=== PATIENT | female | born 1985 | race Asian ===

== ENCOUNTER 2020-10-11 19:29 | Emergency (ER) | payer OTHER, SELFPAY ==
[2020-10-11 19:53] VITALS: BP 114/80; PULSE 78; RESP 16; TEMP 36.8; O2SAT 98; BMI 28.3
[2020-10-11 21:07] VITALS: BP 131/82; PULSE 58; RESP 16; O2SAT 99
--- NOTE | 2020-10-11 21:09 | ED.FEMALEGU ---
HPI - Female Genitourinary General Chief complaint: Vaginal Bleeding Stated complaint: Vaginal Bleeding Time Seen by Provider: 10/11/20 20:39 Source: patient Mode of arrival: ambulatory Limitations: no limitations History of Present Illness HPI Narrative: 35 y/o female with no significant medical history presents to the ER with heavy vaginal bleeding for the last 8 days. She reports she usually gets her menstrual period every 29 days and bleeds for 7 days. Her 1st few days are heavy but it usually slows down. This month the bleeding has been heavier than usual and consistent through the entire 8 days. She is changing her tampon every 3 hours and she is also bleeding some on a pad as well. She has some intermittent lower abdominal cramping that is normal for her menses. She developed new dizziness today which prompted her to come to the ER for further evaluation. She denies chest pain, SOB, vaginal discharge, chance of . MD elicited complaint: vaginal bleeding Onset (ago): day(s) (8) Location of symptoms: vaginal Severity: severe Female Urogenital Radiation: Non-Radiating Severity scale (1-10): 4 Quality of pain: cramping Consistency: intermittent Vaginal discharge: none Vaginal bleeding: heavy and dark red Exacerbating factors: none Relieving factors: none Associated symptoms: denies other symptoms Treatment prior to arrival: none Sexual activity: Yes Patient : No Date of Last Menstrual Period: 10/04/20 Related Data Previous Rx's Medication Instructions Recorded medroxyprogesterone 10 mg tablet 10 mg PO DAILY #5 tab 10/11/20 (Provera) Allergies Allergy/AdvReac Type Severity Reaction Status Date / Time No Known Allergies Allergy Verified 10/11/20 20:01 seasonal Allergy Unknown Unknown Uncoded 10/11/20 20:01 Review of Systems Review of Systems: Constitutional: No Fever, No Chills ENT/Mouth: No sore throat, No Rhinorrhea, No Swallowing Difficulty Cardiovascular: No Chest Pain, No SOB, No Orthopnea, No Edema Respiratory: No Cough, No Sputum, No Wheezing, No dyspnea Gastrointestinal: No Nausea, No Vomiting, No Diarrhea, + abdominal Pain, No Hematochezia, No Melena Genitourinary: No Dysuria, No Urinary Frequency, No Hematuria, +vaginal bleeding, Musculoskeletal: No joint pain, No Myalgias Skin: No Skin Lesions, No rash Neuro: No Weakness, No Numbness, + Dizziness, No Headache Psych:+ Anxiety/Panic, No Depression Heme/Lymph: No Bruising, No Lymphadenopathy Endocrine: No Polyuria, No Polydipsia [facility] Past Medical History Medical History (Updated 10/11/20 @ 22:52 by SANTOS Webb) No known health problems Date of Last Menstrual Period: 10/04/20 Social History Social History Alcohol intake: unknown Patient Tobacco Use Status: Never used Tobacco Use of substances other than those prescribed or required for medical reasons: No Advance Directives: No Advance Directives Information Provided: No Patient : No Physical Exam Vital Signs: Vital Signs: Last Vital Signs Temp 98.2 F 10/11/20 19:53 Pulse 59 10/11/20 22:30 Resp 16 10/11/20 22:30 BP 126/72 10/11/20 22:30 Pulse Ox 98 10/11/20 22:30 Body Mass Index 28.3 Appearance: Alert. Oriented X3. No acute distress. Eyes: Pupils equal, round and reactive to light. ENT: Pharynx normal. Neck: Normal inspection. Neck supple. CVS: Normal heart rate and rhythm. Pulses normal. Respiratory: No respiratory distress. Breath sounds normal. Abdomen: Soft and nontender. +BS x4 Pelvic: normal external genitalia, speculum exam reveals moderate amount of dark blood in the vaginal vault, cervical os is closed, no active bleeding Skin: Skin warm and dry. Normal skin color. Normal skin turgor. No rashes. Extremities: No lower extremity edema. Neuro: Oriented X 3. No motor deficit. No sensory deficit. Course Course Course Narrative: 35 y/o female presenting with 8 days of heavy vaginal bleeding and new onset of dizziness today. Will check labs to assess for anemia. Not dizzy at this time. Reevaluation(s) Reevaluation #1: Labs showing mild normocytic anemia, H/H 11/33.8 from her baseline of 13.8/42.2. No active bleeding on exam. She would like to start medication to help with the bleeding. Risks and benefits of Provera discussed and she would like to start. She was encouraged to f/u [facility] manager multicultural next week for further workup and management, as she has not had her annual Signal Person exam in a several years. MDM - Female Genitourinary Lab Data Result diagrams: 10/11/20 21:06 09/04/21 21:06 Labs: Lab Results 10/11/20 10/11/20 10/11/20 Range/Units 21:06 21:06 21:06 WBC 9.3 (4.8-10.8) X10*3/uL RBC 4.13 L (4.20-5.50) X10*6/uL Hgb 11.0 L (12.0-16.0) g/dl Hct 33.8 L (37-47) % MCV 81.8 (80-98) fL MCH 26.6 L (27.0-33.0) pg MCHC 32.5 (31.0-35.0) g/dl RDW 14.8 (11.0-16.0) % Plt Count 357 (160-400) X10*3/uL MPV 9.9 (9.4-12.3) fL Absolute Nucleated RBC 0.000 (0.0-0.012) X10*3/uL Nucleated RBC % (auto) 0.0 (0.0-0.2) /100WBC Sodium 139 (135-145) mmol/L Potassium 3.7 (3.3-5.1) mmol/L Chloride 107 (96-108) mmol/L Carbon Dioxide 26 (22-29) mmol/L Anion Gap 10 L (12-20) BUN 12 (9-16) mg/dL Creatinine 0.66 (0.5-1.4) mg/dL Estim Creat Clear Calc 116.7 Estimated GFR > 60 Random Glucose 118 H (60-115) mg/dL Calcium 9.2 (8.4-10.2) mg/dL Urine Color RED Urine Appearance CLOUDY Urine pH 7.0 (5.0-8.0) Ur Specific [place] <= 1.005 (1.005-1.025) Urine Protein TRACE (NEG-TRACE) MG/DL Urine Glucose (UA) NEG (NEG) MG/DL Urine Ketones NEG (NEG) MG/DL Urine Blood 3+ H (NEG) Urine Nitrite NEG (NEG) Ur Leukocyte Esterase NEG (NEG) Urine RBC TNTC H (0) /HPF Urine WBC 0-2 (0-4) /HPF Ur Squamous Epith Cells TRACE /LPF Urine Bacteria NONE /LPF Urine Test (NEGATIVE) 10/11/20 Range/Units 21:07 WBC (4.8-10.8) X10*3/uL RBC (4.20-5.50) X10*6/uL Hgb (12.0-16.0) g/dl Hct (37-47) % MCV (80-98) fL MCH (27.0-33.0) pg MCHC (31.0-35.0) g/dl RDW (11.0-16.0) % Plt Count (160-400) X10*3/uL MPV (9.4-12.3) fL Absolute Nucleated RBC (0.0-0.012) X10*3/uL Nucleated RBC % (auto) (0.0-0.2) /100WBC Sodium (135-145) mmol/L Potassium (3.3-5.1) mmol/L Chloride (96-108) mmol/L Carbon Dioxide (22-29) mmol/L Anion Gap (12-20) BUN (9-16) mg/dL Creatinine (0.5-1.4) mg/dL Estim Creat Clear Calc Estimated GFR Random Glucose (60-115) mg/dL Calcium (8.4-10.2) mg/dL Urine Color Urine Appearance Urine pH (5.0-8.0) Ur Specific [place] (1.005-1.025) Urine Protein (NEG-TRACE) MG/DL Urine Glucose (UA) (NEG) MG/DL Urine Ketones (NEG) MG/DL Urine Blood (NEG) Urine Nitrite (NEG) Ur Leukocyte Esterase (NEG) Urine RBC (0) /HPF Urine WBC (0-4) /HPF Ur Squamous Epith Cells /LPF Urine Bacteria /LPF Urine Test NEGATIVE (NEGATIVE) Critical Care Time Critical Care Time Critical Care Time: No Discharge Plan Discharge Clinical Impression: Menorrhagia Qualifiers: Menorrhagia type: with regular cycle Qualified Code(s): N92.0 - Excessive and frequent menstruation with regular cycle Patient Disposition: Home, Self-Care Instructions: Menorrhagia (ED) Additional Instructions: Your blood work today showed mild anemia. Take the prescribed medication as directed to help slow the bleeding. Recommend following up with manager multicultural next week for further workup and management. If you develop new or worsening symptoms call 911 or come back to the ER for further evaluation. Prescriptions: New medroxyprogesterone [Provera] 10 mg tablet 10 mg PO DAILY Qty: 5 RF: 0 Referrals: Ryan Resendiz MD [Physician] - 2 days (menorrhagia w/ anemia)
[2020-10-11 21:13] LABS: Hematocrit 33.8 % (37-47); Mean Corpuscular HGB Conc 32.5 g/dl (31.0-35.0); Mean Corpuscular Hemoglobin 26.6 pg (27.0-33.0); Mean Corpuscular Volume 81.8 fL (80-98); Mean Platelet Volume 9.9 fL (9.4-12.3); Platelet Count 357 X10*3/uL (160-400); Red Blood Count 4.13 X10*6/uL (4.20-5.50); Red Cell Distribution Width 14.8 % (11.0-16.0); White Blood Count 9.3 X10*3/uL (4.8-10.8)
[2020-10-11 21:14] LABS: Glucose Urine UA NEG (NEG); Leukocyte Esterase Urine NEG (NEG); Nitrite Urine NEG (NEG); Specific Gravity - Urine <= 1.005 (1.005-1.025); UACC Culture Trigger NO; Urine Blood 3+ (NEG); Urine Ketones NEG (NEG); Urine Protein TRACE MG/DL (NEG-TRACE)
[2020-10-11 21:16] LABS: UPreg QC Valid YES; Urine Pregnancy NEGATIVE (NEGATIVE)
[2020-10-11 21:17] LABS: Appearance Urine CLOUDY; Color Urine RED
[2020-10-11 21:21] LABS: RBC Urine TNTC /HPF (0); Squamous Epithelial Cell Urine TRACE /LPF; WBC Urine 0-2 /HPF (0-4)
[2020-10-11 21:25] LABS: Anion Gap 10 (12-20); Blood Urea Nitrogen 12 mg/dL (9-16); Calcium 9.2 mg/dL (8.4-10.2); Carbon Dioxide 26 mmol/L (22-29); Chloride 107 mmol/L (96-108); Creatinine Clr Calc Pharmacy 116.7; Estimated Glomerular Filt Rate > 60; Glucose Random 118 mg/dL (60-115); Potassium 3.7 mmol/L (3.3-5.1); Sodium 139 mmol/L (135-145)
[2020-10-11] MEDS: 0.9 % Sodium Chloride 1,000 ML 999 ML IVCONT (21:26)
[2020-10-11 22:30] VITALS: BP 126/72; PULSE 59; RESP 16; O2SAT 98
== END 2020-10-11 23:27 | disposition home or self-care (01) ==
PROVIDERS: Physician Assistant; Emergency Provider Internal Medicine
DX: N92.0 Excessive and frequent menstruation with regular cycle (principal); R42 Dizziness and giddiness
CPT/HCPCS: 36415; 80048; 81001; 81025; 85027; 99283; 99284

== ENCOUNTER 2021-05-01 11:20 | Emergency (ER) | payer OTHER, SELFPAY ==
--- NOTE | ~2021-05-01 | XR_ITS ---
EXAMINATION: XR ANKLE, RIGHT CLINICAL INFORMATION: Pain and swelling. Fall. COMPARISON: None TECHNIQUE: AP, lateral, and mortise views of the right ankle. FINDINGS: Bone alignment is normal. No fracture or dislocation is seen. The joint spaces are normal. There is lateral soft tissue swelling. XR/XR ankle RT min 3V IMPRESSION: Lateral soft tissue swelling. No fracture seen.
[2021-05-01 11:55] VITALS: BP 126/65; PULSE 78; RESP 16; TEMP 37; O2SAT 99; BMI 29.2
--- NOTE | 2021-05-01 13:18 | ED.LOWEXIN ---
HPI - Extremity Injury (Lower) General Chief Complaint: Extremity Injury, Lower Stated Complaint: Fall/ankle pain Time Seen by Provider: 05/01/21 13:18 History of Present Illness HPI Narrative: Patient complains of right ankle pain and swelling after twisting it in a fall this morning no other injury no numbness no weakness no tingling Related Data Previous Rx's Medication Instructions Recorded medroxyprogesterone 10 mg tablet 10 mg PO DAILY #5 tab 10/11/20 (Provera) Allergies Allergy/AdvReac Type Severity Reaction Status Date / Time No Known Allergies Allergy Verified 10/11/20 20:01 seasonal Allergy Unknown Unknown Uncoded 10/11/20 20:01 Review of Systems Review of Systems: Positive for right ankle pain after fall Negatives are no dizziness no weakness no fainting no feeling faint no headache no head injury no neck pain no neck injury no chest pain no shortness of breath no lacerations no other extremity pains Yes all other systems are reviewed and are negative PMFSH Past Medical History Source: nursing notes reviewed Medical History (Updated 05/01/21 @ 13:23 by SANTOS Nicole) No known health problems Social History Social History Alcohol intake: unknown Patient Tobacco Use Status: Never used Tobacco Advance Directives: No Advance Directives Information Provided: Yes Patient : No Physical Exam Vital Signs: Vital Signs: Last Vital Signs Temp 98.6 F 05/01/21 11:55 Pulse 78 05/01/21 11:55 Resp 16 05/01/21 11:55 BP 126/65 05/01/21 11:55 Pulse Ox 99 05/01/21 11:55 BMI result Body Mass Index 29.2 General appearance comfortable no distress Head is normocephalic atraumatic Neck is supple nontender The respiratory no distress The back full range of motion The extremities the right ankle is tender and swollen mostly lateral malleolus and mildly on medial malleolus there is no other foot tenderness, no Achilles tenderness Achilles appears to be intact, skin is intact and neurovascular is intact Other extremities are normal Course Course Course Narrative: Right ankle x-rays were negative and patient was provided Aircast and crutches and will follow as needed with orthopedist Discharge Plan Discharge Clinical Impression: Right ankle sprain Patient Disposition: Home, Self-Care Additional Instructions: X-ray did not show any broken bone Ankle sprain usually gets better on its own but if needed follow with orthopedist You can use crutches as long as it is hard to walk but when you are able to walk on it it is okay to walk on it Return any concerns Prescriptions: No Action medroxyprogesterone [Provera] 10 mg tablet 10 mg PO DAILY Qty: 5 0RF Referrals: Anibal Stanley MD [Physician] - 10 days (Right ankle sprain) Stand Alone Forms: Work/School Release
--- NOTE | 2021-05-01 14:01 | PC.NURSE ---
PT BROUGHT INTO ROOM AND EXAMINED BY SANTOS MAYERS. XRAY COMPLETED. ICE PACK PROVIDED. PLAN IS FOR DC HOME CRUTCH TEACHING PROVIDED WITH POSITIVE TEACHBACK
== END 2021-05-01 14:03 | disposition home or self-care (01) ==
PROVIDERS: Emergency Provider Emergency Medicine
DX: S93.401A Sprain of unspecified ligament of right ankle, initial encounter (principal); W19.XXXA Unspecified fall, initial encounter; Y93.9 Activity, unspecified; Y92.019 Unspecified place in single-family (private) house as the place of occurrence of the external cause; Y99.9 Unspecified external cause status
CPT/HCPCS: 73610; 99283

== ENCOUNTER 2022-12-31 09:38 | Inpatient (IN) | payer OTHER, SELFPAY ==
[2022-12-31] VITALS (8 sets, daily range): BP systolic 108–150; BP diastolic 61–82; PULSE 78–108; RESP 16–18; TEMP 36.5–36.8; O2SAT 98–100; BMI 32.8; BMI 33.5
--- NOTE | ~2022-12-31 | XR_ITS ---
EXAMINATION: XR PORTABLE CHEST CLINICAL INFORMATION: Exertional dyspnea COMPARISON: 01/02/2018 TECHNIQUE: AP upright portable view of the chest FINDINGS: Lungs are clear. No consolidation, pneumothorax, or pleural effusion. Cardiac and mediastinal contours are normal. Pulmonary vasculature is unremarkable. Osseous structures are unremarkable. XR/XR chest 1V IMPRESSION: No acute cardiopulmonary findings
--- NOTE | ~2022-12-31 | CT_ITS ---
EXAMINATION: CT ABDOMEN AND PELVIS WITHOUT AND WITH CONTRAST CLINICAL INFORMATION: GI bleed. COMPARISON: None available. TECHNIQUE: Multidetector volumetric images were obtained from the superior aspect of the liver through the pubic symphysis before and following the administration 85 mL of Omnipaque 350 intravenous contrast. Sagittal and coronal reformatted images were obtained on the technologist's workstation. Oral contrast: No This CT examination was performed using dose optimization techniques as appropriate, variously including the following: *Automated exposure control *Adjustment of mA and/or kV according to patient size (this includes techniques or standardized protocols for targeted exams where dose is matched to indication/reason for exam; i.e. extremities or head) *Use of iterative reconstruction technique DLP: 1786 mGy-cm FINDINGS: LUNG BASES: There is a faint nonspecific 2 mm nodule at the right lung base. There is minimal scarring at both lung bases. LIVER, GALLBLADDER, AND BILIARY TREE: The liver is of heterogeneous diminished attenuation. No focal liver lesion is seen. There is no intrahepatic biliary duct dilatation. The gallbladder is unremarkable with no evidence of radiopaque gallstones, gallbladder wall thickening, or obvious pericholecystic inflammatory changes. PANCREAS: There is a 9 mm hypodensity along the posterior body of the pancreas. SPLEEN: Unremarkable. ADRENAL GLANDS: Unremarkable. KIDNEYS AND URETERS: The kidneys are normal in size, shape, and attenuation. No hydronephrosis, hydroureter, or calculi seen. No perinephric stranding. BLADDER: Unremarkable. GASTROINTESTINAL TRACT: Unremarkable. There is no evidence for contrast extravasation to suggest active gastrointestinal bleeding. ABDOMINAL WALL: Unremarkable LYMPH NODES: Normal. VASCULAR: There is atherosclerotic plaque of the abdominal aorta. PELVIC VISCERA: The uterus is heterogeneous in attenuation. OSSEOUS STRUCTURES: Unremarkable. CT/CT gi bleed abd pel wo/w IVcon IMPRESSION: Fatty infiltration of the liver. No evidence for active GI bleeding. Heterogeneous uterus possibly small fibroids. 9 mm hypodensity along the posterior body of the pancreas is not able to be fully characterize but probably a cyst. Consider a six-month follow-up or MRI evaluation to confirm the cystic nature of this lesion. No acute intra-abdominal process. Fleischner guidelines were followed.
--- NOTE | 2022-12-31 10:02 | ED.GENADULT ---
HPI - General Adult General Chief complaint: Recheck/Abnormal Lab/Rx Stated complaint: hemoglobin 8.6, sent by clinic Time Seen by Provider: 12/31/22 10:01 Source: RN notes reviewed and old records reviewed History of Present Illness HPI narrative: 37-year-old female with a pmhx of Menorrhagia, peptic ulcer disease, presents the ED complaining of intermittent bright bloody stools x1 year worsening over the past month with associated lightheadedness/dizziness and nausea. Also reports exertional dyspnea. Admits saw her OBGYN outpatient on Tuesday and had labs which showed anemia with hemoglobin of 8.6 (9.6 last year) and was instructed to come to the ED for further eval. Reports mild improvement in bleeding since Tuesday. Denies constipation or straining, vaginal bleeding, hematuria, rectal pain, abdominal pain, vomiting, diarrhea, dysuria. Denies taking anticoagulation Related Data Previous Rx's Medication Instructions Recorded medroxyprogesterone 10 mg tablet 10 mg PO DAILY #5 tabs 10/11/20 (Provera) Allergies Allergy/AdvReac Type Severity Reaction Status Date / Time No Known Allergies Allergy Verified 12/31/22 09:44 seasonal Allergy Unknown Unknown Uncoded 10/11/20 20:01 Review of Systems Review of Systems: Constitutional: No Fever, No Chills, No Fatigue, No Malaise ENT/Mouth: No Ear Pain, No Nasal Congestion, No sore throat, No Rhinorrhea, No Swallowing Difficulty Eyes: No Eye Pain, No Swelling, No Redness, No Vision Changes Cardiovascular: No Chest Pain, No SOB, + Dyspnea on Exertion, No Orthopnea, No Edema, No Palpitations Respiratory: No Cough, No Sputum, No Dyspnea Gastrointestinal: +Nausea, No Vomiting, No Diarrhea, No Constipation, No Abdominal pain, No Hematochezia, No Melena Genitourinary: No irregular bleeding, No Dysuria, No Urinary Frequency, No Hematuria, No Urinary Incontinence/retention, No Urgency, No Flank Pain Musculoskeletal: No joint pain, No Myalgias, No Joint Swelling Skin: No Skin Lesions, No rash Neuro: No Weakness, No Numbness, No Paresthesias, No Loss of Consciousness, lightheaded/ Dizziness, No Headache Yes all other systems are reviewed and are negative Constitutional: Constitutional: Reports as per [facility] Past Medical History Attestation statement: The following information was validated with the patient. Source: old records reviewed Medical History No known health problems Social History Alcohol intake: unknown Patient Tobacco Use Status: Never used Tobacco Smoked in Last 30 Days: No Use of substances other than those prescribed or required for medical reasons: No Advance Directives: No Physical Exam ED Vital Signs: Vital Signs - 24 hr 12/31/22 09:44 12/31/22 11:17 12/31/22 11:19 Temperature 98.3 F Pulse Rate 108 H 89 Respiratory Rate 18 18 Blood Pressure 150/82 H 122/66 Pulse Oximetry 99 Oxygen Delivery Method Room Air 12/31/22 11:21 12/31/22 11:21 12/31/22 12:22 Temperature Pulse Rate 86 97 Respiratory Rate Blood Pressure 124/72 108/70 Pulse Oximetry 98 Oxygen Delivery Method Room Air 12/31/22 14:00 Temperature 98 F Pulse Rate 90 Respiratory Rate 16 Blood Pressure 120/61 Pulse Oximetry 100 Oxygen Delivery Method Room Air BMI result Body Mass Index 32.8 Const General: cooperative, healthy appearing and no acute distress Orientation/consciousness: patient oriented x3 Limitations: no limitations HENMT Head: Yes normal to inspection and Yes atraumatic Ears: hearing grossly normal bilaterally General nose exam: Normal external nose present Face and sinus: Yes normal facial exam Eyes General: appearance normal, both eyes and all related structures EOM: EOMs intact bilaterally Neck Neck: Yes normal visual inspection and Yes no meningeal signs Resp Effort & Inspection: normal respiratory effort and no respiratory distress Auscultation: clear to auscultation bilaterally Cardio Rate: regular rate and tachycardic Heart sounds: S1 normal heart sound present and S2 normal heart sound present GI Inspection: Yes normal to inspection Palpation (GI): Soft to palpation, nontender, no guarding and not rigid Rectal Exam - Female: External hemorrhoid(s) present and hemorrhoids General: Yes no CVA tenderness Back/Spine/Pelvis Back: no CVA tenderness Skin Rashes: no rashes Wounds: no wounds Neuro General: patient oriented x3, tone normal and no meningeal signs Cranial nerves: Yes CN's II-XII intact bilaterally Gait exam (Neuro): Normal gait present Extrem General: Yes normal to inspection and Yes no pedal edema Course Course Course Narrative: -1330--no leukocytosis. + anemic with H/H 8.6/28.9 (prior 11.0/33.85). AST/ALT elevated -glucose elevated to 328 will obtain A1c. No anion gap -occult stool negative however no stool in vault. -radiology severely delayed with CT readings. Case discussed with GI, Dr. Sewell, plan is for admission. Case also discussed with hospitalist. Medications Administered Discontinued Medications Generic Name Dose Route Start Last Admin Trade Name Freq PRN Reason Stop Dose Admin Sodium Chloride 1,000 mls @ 999 mls/hr 12/31/22 11:00 12/31/22 12:37 Ns IV 12/31/22 12:00 Infused .Q1H1M TIM Infusion Iohexol 85 ml 12/31/22 13:00 12/31/22 13:01 Iohexol 350 Mg/Ml 100 Ml Infus..Btl IV 12/31/22 13:01 85 ml ONCE ONE Administration Medical Decision Making Medical Decision Making [facility] Narrative: 37-year-old female with a pmhx of Menorrhagia, peptic ulcer disease, presents the ED complaining of intermittent bright bloody stools x1 year worsening over the past month with associated lightheadedness/dizziness and nausea. Also reports exertional dyspnea. On exam tachycardic, NAD, abdomen soft/nontender, hemorrhoids noted on rectal exam. Concern for anemia vs GI bleed vs hemorrhoidal bleeding. Lower suspicion for ACS/PE or CHF Plan: Labs, UA, type and screen, CT AP, occult stool, re-evaluate Please refer to course for remaining clinical decision making, interpretation of labs/imaging results, and discussions with consultants and/or family members. Differential Diagnosis Differential Diagnoses: The differential diagnosis associated with the presentation includes As above Admission/Observation Consideration of admission/observation: Escalation of care including admission/observation considered Lab Data [facility] Lab Attestation statement: I reviewed the patient's lab results. 12/31/22 14:57 12/31/22 11:20 Labs: Lab Results 12/31/22 12/31/22 12/31/22 Range/Units 11:19 11:20 14:57 WBC 9.7 10.3 (4.8-10.8) X10*3/uL RBC 3.77 L 3.48 L (4.20-5.50) X10*6/uL Hgb 8.6 L 8.1 L (12.0-16.0) g/dl Hct 28.9 L 26.8 L (37.0-47.0) % MCV 76.7 L 77.0 L (80.0-98.0) fL MCH 22.8 L 23.3 L (27.0-33.0) pg MCHC 29.8 L 30.2 L (31.0-35.0) g/dl RDW 15.2 15.3 (11.0-16.0) % Plt Count 394 359 (160-400) X10*3/uL MPV 10.2 9.4 (9.4-12.3) fL Immature Gran % (Auto) 0.8 H 0.8 H (0.0-0.4) % Neut % (Auto) 68.1 61.9 (45-73) % Lymph % (Auto) 21.1 26.3 (20-40) % [place] % (Auto) 5.3 6.0 (2-11) % Eos % (Auto) 4.2 H 4.5 H (0-4) % Baso % (Auto) 0.5 0.5 (0-2) % Lymph # (Auto) 2.1 2.7 (1.2-4.9) X10*3/uL [place] # (Auto) 0.5 0.6 (0.1-1.2) X10*3/uL Eos # (Auto) 0.4 0.5 H (0.0-0.4) X10*3/uL Baso # (Auto) 0.1 0.1 (0.0-0.2) X10*3/uL Abs Immat Gran (auto) 0.08 H 0.08 H (0.00-0.03) X10*3/uL Absolute Neuts (auto) 6.6 6.4 (2.0-8.3) x10*3/uL Absolute Nucleated RBC 0.000 0.000 (0.0-0.012) X10*3/uL Nucleated RBC % (auto) 0.0 0.0 (0.0-0.2) /100WBC PT 10.9 L (11.1-13.3) SEC INR 0.9 (0.9-1.1) Sodium 138 (135-145) mmol/L Potassium 3.9 (3.3-5.1) mmol/L Chloride 105 (96-108) mmol/L Carbon Dioxide 25 (22-29) mmol/L Anion Gap 12 (12-20) BUN 10 (9-16) mg/dL Creatinine 0.75 (0.5-1.4) mg/dL Estim Creat Clear Calc 108.4 Estimated GFR > 60 Random Glucose 328 H (60-115) mg/dL Estimat Average Glucose 194 mg/dL Hemoglobin A1c % 8.4 H (<6.0) % Calcium 9.5 (8.4-10.2) mg/dL Magnesium 1.9 (1.6-2.6) mg/dL Total Bilirubin 0.3 (0.0-1.0) mg/dL Direct Bilirubin 0.1 (0.0-0.5) mg/dL AST 73 H (5-31) U/L ALT 130 H (0-31) U/L Alkaline Phosphatase 109 (39-117) U/L Total Protein 7.5 (6.5-8.0) g/dL Albumin 4.1 (3.5-5.0) g/dL Lipase 52 (8-78) U/L Beta HCG, Quant < 2 mIU/mL Urine Color Yellow Urine Appearance Clear Urine pH 6.0 (5.0-9.0) Ur Specific [place] 1.020 (1.005-1.025) Urine Protein Negative (Neg-Trace) mg/dL Urine Glucose (UA) >=1000 H (Negative) mg/dL Urine Ketones Negative (Negative) mg/dL Urine Blood Negative (Negative) Urine Nitrite Negative (Negative) Ur Leukocyte Esterase Negative (Negative) Urine RBC 0-2 (0-2) /HPF Urine WBC 0-5 (0-5) /HPF Ur Squamous Epith Cells 3-5 (0-2) /HPF Urine Bacteria None Seen (None Seen) Hyaline Casts 0-2 (0-2) /LPF Stool Occult Blood NEGATIVE (NEGATIVE) Blood Type O Positive Antibody Screen NEGATIVE Independent Interpretation I performed an independent interpretation of an: EKG (My interpretation EKG normal sinus rhythm rate of 96. RI interval 136. QTC 457. No STEMI) Radiology Impression Discussion of test interpretation with radiology: I have reviewed the radiologist's reading. External Record Review External record reviewed: Inpatient record, Office record, Outpatient record, Prior outpatient labs, Prior outpatient radiology, Primary care record and Outside ED record Tests considered The following testing was considered but not selected: As above Chronic Conditions Patient?s care impacted by: Other (Menorrhagia) Critical Care Time Critical Care Time Critical Care Time: Yes Total Critical Care Time: 45 Attestation: I have personally provided critical care time exclusive of time spent on separately billable procedures. Time includes review of lab data, radiology results, discussion with consultants, and monitoring for potential decompensation. Intervention performed as documented. Discharge Plan Discharge Clinical Impression: Anemia, BRBPR (bright red blood per rectum) Patient Disposition: Admitted As Inpatient
--- NOTE | 2022-12-31 10:47 | ECG_ITS ---
Test Reason : DIZZY Blood Pressure : / mmHG Vent. Rate : 096 BPM Atrial Rate : 096 BPM P-R Int : 136 ms QRS Dur : 082 ms QT Int : 362 ms P-R-T Axes : 021 021 016 degrees QTc Int : 457 ms Normal sinus rhythm Normal ECG When compared with ECG of 27-OCT-2014 15:23, No significant change was found Referred By: Bing Valentine Electronically Signed By:GARRET OLIVER MD
[2022-12-31] MEDS: 0.9 % Sodium Chloride 1,000 ML 999 ML IV (11:15)
[2022-12-31 11:27] LABS: MANUAL DIFF FLAG NO
[2022-12-31 11:28] LABS: Basophils Absolute Auto 0.1 X10*3/uL (0.0-0.2); Basophils Percent Auto 0.5 % (0-2); Eosinophils Absolute Auto 0.4 X10*3/uL (0.0-0.4); Eosinophils Percent Auto 4.2 % (0-4); Hematocrit 28.9 % (37.0-47.0); Hemoglobin 8.6 g/dl (12.0-16.0); Imm Gran Abs Auto 0.08 X10*3/uL (0.00-0.03); Imm Gran Pct Auto 0.8 % (0.0-0.4); Lymphocytes Absolute Auto 2.1 X10*3/uL (1.2-4.9); Lymphocytes Percent Auto 21.1 % (20-40); Mean Corpuscular HGB Conc 29.8 g/dl (31.0-35.0); Mean Corpuscular Hemoglobin 22.8 pg (27.0-33.0); Mean Corpuscular Volume 76.7 fL (80.0-98.0); Mean Platelet Volume 10.2 fL (9.4-12.3); Monocytes Absolute Auto 0.5 X10*3/uL (0.1-1.2); Monocytes Percent Auto 5.3 % (2-11); Neutrophils Absolute Auto 6.6 x10*3/uL (2.0-8.3); Neutrophils Percent Auto 68.1 % (45-73); Platelet Count 394 X10*3/uL (160-400); Red Blood Count 3.77 X10*6/uL (4.20-5.50); Red Cell Distribution Width 15.2 % (11.0-16.0); White Blood Count 9.7 X10*3/uL (4.8-10.8)
[2022-12-31 11:29] LABS: Appearance Urine Clear; Color Urine Yellow; Glucose Urine UA >=1000 mg/dL (Negative); Leukocyte Esterase Urine Negative (Negative); Nitrite Urine Negative (Negative); UMIC TRIGGER UACC YES; Urine Blood Negative (Negative); Urine Ketones Negative (Negative); Urine Protein Negative (Neg-Trace)
[2022-12-31 11:31] LABS: OBS Int Ctl Valid YES; OBS1 NEGATIVE (NEGATIVE)
[2022-12-31 11:33] LABS: Bacteria Urine None Seen (None Seen); Hyaline Casts Urine 0-2 /LPF (0-2); RBC Urine 0-2 /HPF (0-2); WBC Urine 0-5 /HPF (0-5)
[2022-12-31 11:38] LABS: INTERNATIONAL NORM RATIO 0.9 (0.9-1.1); Prothrombin Time 10.9 SEC (11.1-13.3)
[2022-12-31 11:47] LABS: Alanine Aminotransferase 130 U/L (0-31); Albumin Level 4.1 g/dL (3.5-5.0); Alkaline Phosphatase 109 U/L (39-117); Anion Gap 12 (12-20); Aspartate Amino Transferase 73 U/L (5-31); Bilirubin Direct 0.1 mg/dL (0.0-0.5); Bilirubin Total 0.3 mg/dL (0.0-1.0); Blood Urea Nitrogen 10 mg/dL (9-16); Calcium 9.5 mg/dL (8.4-10.2); Carbon Dioxide 25 mmol/L (22-29); Chloride 105 mmol/L (96-108); Creatinine Clr Calc Pharmacy 108.4; Estimated Glomerular Filt Rate > 60; Glucose Random 328 mg/dL (60-115); Lipase 52 U/L (8-78); Magnesium 1.9 mg/dL (1.6-2.6); Potassium 3.9 mmol/L (3.3-5.1); Sodium 138 mmol/L (135-145); Total Protein 7.5 g/dL (6.5-8.0)
[2022-12-31 11:50] LABS: HCG Quantitative < 2 mIU/mL
[2022-12-31] MEDS: iohexoL 350 MG/ML 100 ML INFUS..BTL 85 ML IV (13:01)
[2022-12-31 13:56] LABS: Estimated Average Glucose 194 mg/dL; Hemoglobin A1C 153.7115 umol/L; Hemoglobin A1c % 8.4 % (<6.0)
[2022-12-31 14:59] LABS: MANUAL DIFF FLAG NO
[2022-12-31 15:02] LABS: Basophils Absolute Auto 0.1 X10*3/uL (0.0-0.2); Basophils Percent Auto 0.5 % (0-2); Eosinophils Absolute Auto 0.5 X10*3/uL (0.0-0.4); Eosinophils Percent Auto 4.5 % (0-4); Hematocrit 26.8 % (37.0-47.0); Hemoglobin 8.1 g/dl (12.0-16.0); Imm Gran Abs Auto 0.08 X10*3/uL (0.00-0.03); Imm Gran Pct Auto 0.8 % (0.0-0.4); Lymphocytes Absolute Auto 2.7 X10*3/uL (1.2-4.9); Lymphocytes Percent Auto 26.3 % (20-40); Mean Corpuscular HGB Conc 30.2 g/dl (31.0-35.0); Mean Corpuscular Hemoglobin 23.3 pg (27.0-33.0); Mean Platelet Volume 9.4 fL (9.4-12.3); Monocytes Absolute Auto 0.6 X10*3/uL (0.1-1.2); Neutrophils Absolute Auto 6.4 x10*3/uL (2.0-8.3); Neutrophils Percent Auto 61.9 % (45-73); Platelet Count 359 X10*3/uL (160-400); Red Blood Count 3.48 X10*6/uL (4.20-5.50); Red Cell Distribution Width 15.3 % (11.0-16.0); White Blood Count 10.3 X10*3/uL (4.8-10.8)
--- NOTE | 2022-12-31 16:15 | PM.IMHP ---
History of Present Illness Date of Service: 12/31/22 Chief Complaint: rectal bleed anemia A 37-year-old female with no significant past medical history presented to the ED with rectal bleeding. She reported having intermittent blood in her stool for months, but for the past several days, she had not noticed any blood. However, today she noted more blood when she wiped. She had also been experiencing episodes of dizziness, fatigue, and shortness of breath, as well as occasional epigastric pain. No weight loss. An outpatient lab test showed a hemoglobin of 8.6 g/dL, and she was sent to the ED for further workup. A repeat hemoglobin level was unchanged. Last known hemoglobin was 11 in october 2020. She takes no medications, including [id number] pain relievers. Review of Systems Review of Systems: Gen: no fever Resp: no sob, no cough CV: no chest, no BEAN, no leg edema GI: No n/v, no abd pain Neuro: No confusion [facility] Medical History No known health problems Alcohol intake: unknown Patient Tobacco Use Status: Never used Tobacco Smoked in Last 30 Days: No Use of substances other than those prescribed or required for medical reasons: No Advance Directives: No Meds Allergies Allergy/AdvReac Type Severity Reaction Status Date / Time No Known Allergies Allergy Verified 12/31/22 09:44 seasonal Allergy Unknown Unknown Uncoded 10/11/20 20:01 Physical Exam Vital Signs and Narrative: Vital Signs: Last Vital Signs Temp 98 F 12/31/22 14:00 Pulse 90 12/31/22 14:00 Resp 16 12/31/22 14:00 BP 120/61 12/31/22 14:00 Pulse Ox 100 12/31/22 14:00 O2 Del Method Room Air 12/31/22 14:00 BMI result Body Mass Index 32.8 Results Labs 12/31/22 14:57 12/31/22 11:20 Labs: Laboratory Results - last 24 hr 12/31/22 12/31/22 12/31/22 11:19 11:20 14:57 MCV 76.7 L 77.0 L MCH 22.8 L 23.3 L MCHC 29.8 L 30.2 L RDW 15.2 15.3 Plt Count 394 359 MPV 10.2 9.4 Immature Gran % (Auto) 0.8 H 0.8 H Neut % (Auto) 68.1 61.9 Lymph % (Auto) 21.1 26.3 [place] % (Auto) 5.3 6.0 Eos % (Auto) 4.2 H 4.5 H Baso % (Auto) 0.5 0.5 Lymph # (Auto) 2.1 2.7 [place] # (Auto) 0.5 0.6 Eos # (Auto) 0.4 0.5 H Baso # (Auto) 0.1 0.1 Abs Immat Gran (auto) 0.08 H 0.08 H Absolute Neuts (auto) 6.6 6.4 Absolute Nucleated RBC 0.000 0.000 Nucleated RBC % (auto) 0.0 0.0 PT 10.9 L INR 0.9 Anion Gap 12 Estim Creat Clear Calc 108.4 Estimated GFR > 60 Random Glucose 328 H Estimat Average Glucose 194 Hemoglobin A1c % 8.4 H Calcium 9.5 Magnesium 1.9 Total Bilirubin 0.3 Direct Bilirubin 0.1 AST 73 H ALT 130 H Alkaline Phosphatase 109 Total Protein 7.5 Albumin 4.1 Lipase 52 Beta HCG, Quant < 2 Urine Color Yellow Urine Appearance Clear Urine pH 6.0 Ur Specific [place] 1.020 Urine Protein Negative Urine Glucose (UA) >=1000 H Urine Ketones Negative Urine Blood Negative Urine Nitrite Negative Ur Leukocyte Esterase Negative Urine RBC 0-2 Urine WBC 0-5 Ur Squamous Epith Cells 3-5 Urine Bacteria None Seen Hyaline Casts 0-2 Stool Occult Blood NEGATIVE Blood Type O Positive Antibody Screen NEGATIVE Imaging Radiologist's Impressions: Impressions Chest X-Ray 12/31/22 13:39 IMPRESSION: No acute cardiopulmonary findings Assessment and Plan (1) BRBPR (bright red blood per rectum): Status: Acute (2) Acute blood loss anemia: Status: Acute Plan 37/F with rectal bleed, and symptomatic acute blood loss anemia Plan: She needs GI work up with either EGD, Colonoscopy or both. I requested GI consult (Dr. Sewell suggest CT of abdomen and Hep B and C), in the meatime give IV PPI, and follow hemoglobin and Hematocrit closely. Transfuse if Hgb drops below 8. Clear liquid diet now Quality Stroke Does the patient have a stroke diagnosis?: No VTE Prior VTE?: No VTE Risk Level:: Medical - low VTE Device Contraindication: Treatment Not Indicated VTE Drug Contraindication: Treatment Not Indicated
--- NOTE | 2022-12-31 17:16 | PHA.MEDREC ---
Pharmacy Consult ? Medication Reconciliation Pharmacy has completed the medication reconciliation. SPOKE TO PT AND SHE CONFIRMS NO CURRENT HOME MEDICATIONS. SHE SAYS SHE TOOK NEXIUM FOR A LITTLE WHILE A FEW WEEKS AGO BUT STOPPED LAST WEEK.
[2022-12-31] MEDS: Pantoprazole Sodium 40 MG/10 ML VIAL IVPUSH (19:29)
--- NOTE | 2022-12-31 19:43 | PC.NURSE ---
This insurance underwriter assumed care of this Pt at 1900. Pt A&Ox4, denies any pain. Pt medicated per APR. Requesting food, updated on plan of care and need for clear liquid diet. Report given to Kinsey, Pt will be transported to room 384 by information technology auditor. Pt aware of plan.
[2022-12-31] MEDS: 0.9 % Sodium Chloride Flush 3 ML SYRINGE IVFLUSH (20:23)
[2023-01-01 05:37] LABS: Hematocrit 28.9 % (37.0-47.0); Hemoglobin 8.5 g/dl (12.0-16.0); Mean Corpuscular HGB Conc 29.4 g/dl (31.0-35.0); Mean Corpuscular Hemoglobin 22.5 pg (27.0-33.0); Mean Corpuscular Volume 76.7 fL (80.0-98.0); Mean Platelet Volume 9.6 fL (9.4-12.3); Platelet Count 389 X10*3/uL (160-400); Red Blood Count 3.77 X10*6/uL (4.20-5.50); Red Cell Distribution Width 15.4 % (11.0-16.0); White Blood Count 10.7 X10*3/uL (4.8-10.8)
[2023-01-01] MEDS: Pantoprazole Sodium 40 MG/10 ML VIAL IVPUSH (05:57)
[2023-01-01 07:52] VITALS: BP 123/57; PULSE 83; RESP 16; TEMP 36.4; O2SAT 100
[2023-01-01] MEDS: 0.9 % Sodium Chloride Flush 3 ML SYRINGE IVFLUSH ×3 (08:35→22:40)
--- NOTE | 2023-01-01 08:51 | MHC.CM.PN ---
PT REPORTS SHE LIVES AT HOME WITH FAMILY, INCLUDING HER AND CHILDREN, HER BROTHER AND HIS CHILDREN. 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
--- NOTE | 2023-01-01 10:06 | HO.PM.IMPN ---
Subjective Subjective Date of Service: 01/01/23 Interval History: still with blood in toilet H/H is actuallly better today Physical Exam Vital Signs: Vital Signs: Last Vital Signs Temp 97.6 F 01/01/23 07:52 Pulse 83 01/01/23 07:52 Resp 16 01/01/23 07:52 BP 123/57 L 01/01/23 07:52 Pulse Ox 100 01/01/23 07:52 O2 Del Method Room Air 01/01/23 07:52 BMI result Body Mass Index 33.5 Const: Other: General: AO X 3, no acute distress Resp: CTA bilateral CVS: S1,S2,RRR GI: +BS, NT, no distention Skin: No rash Neuro: motor grossly intact Psych: appropriate affect Objective Data Active Medications Magnesium Hydroxide (Milk Of Magnesia 30 Ml Oral.Susp) 30 ml PO DAILY PRN PRN Reason: Constipation Melatonin (Melatonin 3 Mg Tablet) 6 mg PO BEDTIME PRN PRN Reason: Insomnia Ondansetron HCl (Ondansetron Hcl 4 Mg/2 Ml Vial) 4 mg IVPUSH Q8H PRN PRN Reason: Nausea and Vomiting Pantoprazole Sodium (Pantoprazole Sodium 40 Mg/10 Ml Vial) 40 mg IVPUSH BID@0630,1630 [facility] Last Admin: 01/01/23 05:57 Dose: 40 mg Documented By: MAGDALENA Polyethylene Glycol/Electrolytes (Peg 3350/Na Sulf,Bicarb,Cl/Kcl 4,000 Ml Soln.Recon) 4,000 ml PO ONCE ONE Stop: 01/01/23 18:31 Sodium Chloride (0.9 % Sodium Chloride Flush 3 Ml Syringe) 3 ml IVFLUSH Q[facility] Last Admin: 01/01/23 08:35 Dose: 3 ml Documented By: ARVIND Labs 01/01/23 05:19 12/31/22 11:20 Labs: Laboratory Results - last 24 hr 12/31/22 12/31/22 12/31/22 11:19 11:20 14:57 MCV 76.7 L 77.0 L MCH 22.8 L 23.3 L MCHC 29.8 L 30.2 L RDW 15.2 15.3 Plt Count 394 359 MPV 10.2 9.4 Immature Gran % (Auto) 0.8 H 0.8 H Neut % (Auto) 68.1 61.9 Lymph % (Auto) 21.1 26.3 [place] % (Auto) 5.3 6.0 Eos % (Auto) 4.2 H 4.5 H Baso % (Auto) 0.5 0.5 Lymph # (Auto) 2.1 2.7 [place] # (Auto) 0.5 0.6 Eos # (Auto) 0.4 0.5 H Baso # (Auto) 0.1 0.1 Abs Immat Gran (auto) 0.08 H 0.08 H Absolute Neuts (auto) 6.6 6.4 Absolute Nucleated RBC 0.000 0.000 Nucleated RBC % (auto) 0.0 0.0 PT 10.9 L INR 0.9 Anion Gap 12 Estim Creat Clear Calc 108.4 Estimated GFR > 60 Random Glucose 328 H Estimat Average Glucose 194 Hemoglobin A1c % 8.4 H Calcium 9.5 Magnesium 1.9 Total Bilirubin 0.3 Direct Bilirubin 0.1 AST 73 H ALT 130 H Alkaline Phosphatase 109 Total Protein 7.5 Albumin 4.1 Lipase 52 Beta HCG, Quant < 2 Urine Color Yellow Urine Appearance Clear Urine pH 6.0 Ur Specific [place] 1.020 Urine Protein Negative Urine Glucose (UA) >=1000 H Urine Ketones Negative Urine Blood Negative Urine Nitrite Negative Ur Leukocyte Esterase Negative Urine RBC 0-2 Urine WBC 0-5 Ur Squamous Epith Cells 3-5 Urine Bacteria None Seen Hyaline Casts 0-2 Stool Occult Blood NEGATIVE Blood Type O Positive Antibody Screen NEGATIVE 01/01/23 05:19 MCV 76.7 L MCH 22.5 L MCHC 29.4 L RDW 15.4 Plt Count 389 MPV 9.6 Immature Gran % (Auto) Neut % (Auto) Lymph % (Auto) [place] % (Auto) Eos % (Auto) Baso % (Auto) Lymph # (Auto) [place] # (Auto) Eos # (Auto) Baso # (Auto) Abs Immat Gran (auto) Absolute Neuts (auto) Absolute Nucleated RBC 0.000 Nucleated RBC % (auto) 0.0 PT INR Anion Gap Estim Creat Clear Calc Estimated GFR Random Glucose Estimat Average Glucose Hemoglobin A1c % Calcium Magnesium Total Bilirubin Direct Bilirubin AST ALT Alkaline Phosphatase Total Protein Albumin Lipase Beta HCG, Quant Urine Color Urine Appearance Urine pH Ur Specific [place] Urine Protein Urine Glucose (UA) Urine Ketones Urine Blood Urine Nitrite Ur Leukocyte Esterase Urine RBC Urine WBC Ur Squamous Epith Cells Urine Bacteria Hyaline Casts Stool Occult Blood Blood Type Antibody Screen Assessment and Plan (1) Acute blood loss anemia: Status: Acute (2) BRBPR (bright red blood per rectum): Status: Acute (3) Anemia: Status: Acute Plan Plan: She needs GI work up with either EGD, Colonoscopy or both. Dr. Sewell aware, monitor, H/H, transfuse for hgb near 7 or with symptoms, IV PPI for now, continue clears. elevate LFTs likely from fatty liver, hip B, C serology pending abnormal finding near tail of pancreatic, [address] or outpatient MRI Quality Stroke Does the patient have a stroke diagnosis?: No VTE Prior VTE?: No VTE Risk Level:: Medical - low VTE Device Contraindication: Treatment Not Indicated VTE Drug Contraindication: Treatment Not Indicated
[2023-01-01 12:43] LABS: Glucose, Whole Blood 251 mg/dL (60-115)
[2023-01-01 12:55] LABS: Estimated Average Glucose 189 mg/dL; Hemoglobin A1c % 8.2 % (<6.0)
[2023-01-01] MEDS: Insulin Lispro 100 UNIT/ML 3 ML VIAL SUBCUT ×2 (12:59→16:51)
[2023-01-01] MEDS: metFORMIN HCl 500 MG TABLET PO ×2 (12:59→16:47)
[2023-01-01 15:54] VITALS: BP 121/58; PULSE 87; RESP 16; TEMP 36.2; O2SAT 99
[2023-01-01 16:46] LABS: Glucose, Whole Blood 196 mg/dL (60-115)
[2023-01-01] MEDS: PEG 3350/Na Sulf,Bicarb,Cl/KCL 4,000 ML SOLN.RECON 4000 ML PO (18:34)
[2023-01-01 19:14] VITALS: BP 133/64; PULSE 100; RESP 18; TEMP 36.4; O2SAT 100
--- NOTE | 2023-01-01 20:37 | P.CNGI_ITS ---
History of Present Illness Data of Consult Service Date: 01/01/23 Requesting physician: [facility] Primary Care Provider: None Physician HPI Reason for consult: rectal bleeding 37-year-old female with no significant past medical history who I am seeing for assessment for rectal bleeding and anemia. She has been having in intermittent blood in her stool for months, canbe mixed with stool or dripping blood into the toilet mathews. Last fe days again noted bleeding but also accompanied by dizziness, fatigue, and shortness of breath without chest pain or abdominal pain. Denies weight loss rather has noted 60# gain over last year or so. She denies menorrhagia (on depot) nose bleeds, hematuria. No nausea, vomiting, or heartburn. Denies taking nsaids. Labs: HGB 8.6 g/dl, last HGB 11 g/dl in 2020, elevated glucose and a1c Review of Systems 2 Review of Systems: Constitutional : No Weight loss, No Fever, No Chills ENT/Mouth : No sore throat, No Rhinorrhea Eyes: No Swelling, No Redness Cardiovascular : No Chest Pain, + SOB, No Edema Respiratory : No Cough, No Sputum, No Wheezing Gastrointestinal : see HPI Genitourinary : NO Dysuria, No Urinary Frequency, No Hematuria, No Urgency Musculoskeletal : No joint pain, No Myalgias, No Joint Swelling Skin : No Skin Lesions, No rash Neuro : + Weakness, No Numbness, No Dizziness, No Headache Psych : No Anxiety/Panic, No Depression Heme/Lymph: No Bruising, No Lymphadenopathy Endocrine : No Polyuria, No Polydipsia All other systems reviewed and are negative. [facility] Past Medical History Medical History No known health problems Family History Pertinent family history: Dm in mother Social History Household Members: Family Household Members Other:: 7 Housing: House Do you presently have visiting nurse or other home services: No Alcohol intake: unknown Patient Tobacco Use Status: Never used Tobacco Smoked in Last 30 Days: No e-Cigarette/Vaping Use: Never Used Patient Interested in Nicotine Replacement: No Patient Given Instructions on How to Stop Smoking: No Second Hand Smoke Exposure: No Use of substances other than those prescribed or required for medical reasons: No Currently Displaying Signs/Symptoms of Drug Intoxication Withdrawal: No Any prior treatment program specific to substance use: No Have you been hit, kicked, punched, or otherwise hurt by someone within the past year? If so, by whom?: No Do you feel safe in your current relationship?: Yes Is there a partner from a previous relationship who is making you feel unsafe now?: No Are you made to feel afraid or neglected: No Advance Directives: No Advance Directives Information Provided: No (Declined) Advance Directives on File: No Do you have thoughts of harming others: None Do you have a plan to hurt others: No Plan Recently lost weight without trying: No Eating poorly because of decreased appetite: No Nutrition Risks: No Nutritional Risk Patient : No : No Poor oral hygiene: No service: No Meds Allergies Allergy/AdvReac Type Severity Reaction Status Date / Time No Known Allergies Allergy Verified 12/31/22 09:44 seasonal Allergy Unknown Unknown Uncoded 10/11/20 20:01 Active Medications: Current Medications Dextrose (Dextrose 50 % 25 Gm/50 Ml Syringe) 25 gm IVPUSH Q15M PRN; Protocol PRN Reason: per Hypoglycemia Standing Ord. Glucose (Glucose Gel 15 Gm Gel..Gram.) 15 gm PO Q15M PRN; Protocol PRN Reason: per Hypoglycemia Standing Ord. Insulin Human Lispro (Insulin Lispro 100 Unit/Ml 3 Ml Vial) 0 unit SUBCUT QIDACHS [facility]; Protocol Last Admin: 01/01/23 16:51 Dose: 2 unit Magnesium Hydroxide (Milk Of Magnesia 30 Ml Oral.Susp) 30 ml PO DAILY PRN PRN Reason: Constipation Melatonin (Melatonin 3 Mg Tablet) 6 mg PO BEDTIME PRN PRN Reason: Insomnia Metformin HCl (Metformin Hcl 500 Mg Tablet) 500 mg PO BIDWM [facility] Last Admin: 01/01/23 16:47 Dose: 500 mg Ondansetron HCl (Ondansetron Hcl 4 Mg/2 Ml Vial) 4 mg IVPUSH Q8H PRN PRN Reason: Nausea and Vomiting Sodium Chloride (0.9 % Sodium Chloride Flush 3 Ml Syringe) [facility] Last Admin: 01/01/23 15:46 Dose: 3 ml Home Medications Medication Instructions Recorded Confirmed Last Taken Type No Known Home Meds 12/31/22 12/31/22 Unknown History Physical Exam 2 Vital Signs: Vital Signs: Last Vital Signs Temp 97.6 F 01/01/23 19:14 Pulse 100 01/01/23 19:14 Resp 18 01/01/23 19:14 BP 133/64 01/01/23 19:14 Pulse Ox 100 01/01/23 19:14 O2 Del Method Room Air 01/01/23 19:14 BMI result Body Mass Index 33.5 EXAM: GENERAL: The patient is well developed and nontoxic. VITAL SIGNS:see workflow HEENT: Nonicteric sclerae, PERRLA, EOMI. Oropharynx clear. Moist mucous membranes. Conjunctivae appear well pale. No thyroid mass. CHEST: Chest wall is nontender. HEART: Regular rate and rhythm without murmurs. LUNGS: Clear to auscultation bilaterally. ABDOMEN: Soft, positive bowel sounds, nontender, no organomegaly.no flank tenderness SKIN: No rash, no excessive bruising, petechiae, or purpura. NEUROLOGIC: Cranial nerves II-XII intact without motor/sensory deficit. Psych: Appearance: grossly normal Results Labs 01/02/23 05:49 12/31/22 11:20 Labs: Short CBC 01/01/23 Range/Units 05:19 WBC 10.7 (4.8-10.8) X10*3/uL Hgb 8.5 L (12.0-16.0) g/dl Hct 28.9 L (37.0-47.0) % Plt Count 389 (160-400) X10*3/uL Assessment and Plan (1) Acute blood loss anemia: Status: Acute Plan 1/ Acute on chronic microcytic anemia , symptomatic--dx; hemorrhoids, low lying pathology eg proctitis, polyp, upper GI source 2/ newly diagnosed DM with abn LFT likely WEIR given body habitus and eight gain PLAN: 1/ EGD and colo for further assessment 2/ check hep serologies, r/o hep b especially 3/ management of DM per primary team Procedures Date of Service Date of Service: 01/02/23
[2023-01-01 20:43] LABS: Glucose, Whole Blood 199 mg/dL (60-115)
[2023-01-02 04:00] VITALS: BP 118/70; PULSE 80; RESP 18; TEMP 36.3; O2SAT 98
[2023-01-02 06:41] LABS: Hematocrit 29.4 % (37.0-47.0); Hemoglobin 8.8 g/dl (12.0-16.0); Mean Corpuscular HGB Conc 29.9 g/dl (31.0-35.0); Mean Corpuscular Hemoglobin 23.1 pg (27.0-33.0); Mean Corpuscular Volume 77.2 fL (80.0-98.0); Mean Platelet Volume 10.5 fL (9.4-12.3); Platelet Count 417 X10*3/uL (160-400); Red Blood Count 3.81 X10*6/uL (4.20-5.50); Red Cell Distribution Width 15.3 % (11.0-16.0); White Blood Count 10.4 X10*3/uL (4.8-10.8)
--- NOTE | 2023-01-02 06:54 | HO.PM.IMPN ---
Subjective Subjective Date of Service: 01/02/23 Interval History: f/u on gib, acute blood loss anemia, h/h is better this morning, but sees blood in toilet completed gi prep Physical Exam Vital Signs: Vital Signs: Last Vital Signs Temp 97.4 F 01/02/23 04:00 Pulse 80 01/02/23 04:00 Resp 18 01/02/23 04:00 BP 118/70 01/02/23 04:00 Pulse Ox 98 01/02/23 04:00 O2 Del Method Room Air 01/02/23 04:00 BMI result Body Mass Index 33.5 Objective Data Active Medications Dextrose (Dextrose 50 % 25 Gm/50 Ml Syringe) 25 gm IVPUSH Q15M PRN; Protocol PRN Reason: per Hypoglycemia Standing Ord. Glucose (Glucose Gel 15 Gm Gel..Gram.) 15 gm PO Q15M PRN; Protocol PRN Reason: per Hypoglycemia Standing Ord. Insulin Human Lispro (Insulin Lispro 100 Unit/Ml 3 Ml Vial) [facility]; Protocol Last Admin: 01/01/23 16:51 Dose: 2 unit Documented By: ARVIND Magnesium Hydroxide (Milk Of Magnesia 30 Ml Oral.Susp) 30 ml PO DAILY PRN PRN Reason: Constipation Melatonin (Melatonin 3 Mg Tablet) 6 mg PO BEDTIME PRN PRN Reason: Insomnia Metformin HCl (Metformin Hcl 500 Mg Tablet) [facility] Last Admin: 01/01/23 16:47 Dose: 500 mg Documented By: ARVIND Ondansetron HCl (Ondansetron Hcl 4 Mg/2 Ml Vial) 4 mg IVPUSH Q8H PRN PRN Reason: Nausea and Vomiting Sodium Chloride (0.9 % Sodium Chloride Flush 3 Ml Syringe) [facility] Last Admin: 01/01/23 22:40 Dose: 3 ml Documented By: MAGDALENA Labs 01/02/23 05:49 12/31/22 11:20 Labs: Laboratory Results - last 24 hr 01/01/23 01/01/23 01/01/23 05:19 12:40 16:41 MCV MCH MCHC RDW Plt Count MPV Absolute Nucleated RBC Nucleated RBC % (auto) POC Glucose 251 H 196 H Estimat Average Glucose 189 Hemoglobin A1c % 8.2 H 01/01/23 01/02/23 19:17 05:49 MCV 77.2 L MCH 23.1 L MCHC 29.9 L RDW 15.3 Plt Count 417 H MPV 10.5 Absolute Nucleated RBC 0.000 Nucleated RBC % (auto) 0.0 POC Glucose 199 H Estimat Average Glucose Hemoglobin A1c % Assessment and Plan (1) Acute blood loss anemia: Status: Acute (2) BRBPR (bright red blood per rectum): Status: Acute (3) Anemia: Status: Acute Plan Acute blood loss anemia/ lower gi bleeding: Colonoscopy is planned by Dr. Sewell, monitor, H/H, transfuse for hgb near 7 or with symptoms. elevate LFTs likely from fatty liver, hip B, C serology pending abnormal finding near tail of pancreatic, [address] or outpatient MRI New onset diabetes, type 2, mother has diabetes, H-A1C 8, started on Metformin 500 bid, SSI, diabetes education obesity weight loss advised DVT p: low risk, ambualate need for inpt: acute gib, anemia, need further testing Quality Stroke Does the patient have a stroke diagnosis?: No VTE Prior VTE?: No VTE Risk Level:: Medical - low VTE Device Contraindication: Treatment Not Indicated VTE Drug Contraindication: Treatment Not Indicated
[2023-01-02 07:10] LABS: Glucose, Whole Blood 165 mg/dL (60-115)
[2023-01-02 07:54] VITALS: BP 120/56; PULSE 91; RESP 17; TEMP 36; O2SAT 97
[2023-01-02] MEDS: 0.9 % Sodium Chloride Flush 3 ML SYRINGE IVFLUSH (09:11)
[2023-01-02 11:26] LABS: Glucose, Whole Blood 118 mg/dL (60-115)
--- NOTE | 2023-01-02 11:54 | P.CONAN_ITS ---
HPI - Anesthesia Eval Consult details Narrative: Rectal bleeding PMFSH Active Problems Active Problems: All Active Problems (Updated 12/31/22 @ 16:25 by Eric Neumann MD) Acute blood loss anemia (Acute) BRBPR (bright red blood per rectum) (Acute) Anemia (Acute) Past Medical History Medical History (Updated 01/02/23 @ 11:55 by Gerardo Curtis MD) Obesity No known health problems Family History Family history of problems with anesthesia: No Surgical History History of Problems with Anesthesia: No Social History Household Members: Family Household Members Other:: 7 Housing: House Do you presently have visiting nurse or other home services: No Alcohol intake: unknown Patient Tobacco Use Status: Never used Tobacco Smoked in Last 30 Days: No e-Cigarette/Vaping Use: Never Used Patient Interested in Nicotine Replacement: No Patient Given Instructions on How to Stop Smoking: No Second Hand Smoke Exposure: No Use of substances other than those prescribed or required for medical reasons: No Currently Displaying Signs/Symptoms of Drug Intoxication Withdrawal: No Any prior treatment program specific to substance use: No Have you been hit, kicked, punched, or otherwise hurt by someone within the past year? If so, by whom?: No Do you feel safe in your current relationship?: Yes Is there a partner from a previous relationship who is making you feel unsafe now?: No Are you made to feel afraid or neglected: No Advance Directives: No Advance Directives Information Provided: No (Declined) Advance Directives on File: No Do you have thoughts of harming others: None Do you have a plan to hurt others: No Plan Recently lost weight without trying: No Eating poorly because of decreased appetite: No Nutrition Risks: No Nutritional Risk Patient : No : No Poor oral hygiene: No service: No Meds Allergies Allergy/AdvReac Type Severity Reaction Status Date / Time No Known Allergies Allergy Verified 12/31/22 09:44 seasonal Allergy Unknown Unknown Uncoded 10/11/20 20:01 Active Medications: Current Medications Dextrose (Dextrose 50 % 25 Gm/50 Ml Syringe) 25 gm IVPUSH Q15M PRN; Protocol PRN Reason: per Hypoglycemia Standing Ord. Glucose (Glucose Gel 15 Gm Gel..Gram.) 15 gm PO Q15M PRN; Protocol PRN Reason: per Hypoglycemia Standing Ord. Insulin Human Lispro (Insulin Lispro 100 Unit/Ml 3 Ml Vial) 0 unit SUBCUT QIDACHS [facility]; Protocol Last Admin: 01/02/23 11:24 Dose: Not Given Magnesium Hydroxide (Milk Of Magnesia 30 Ml Oral.Susp) 30 ml PO DAILY PRN PRN Reason: Constipation Melatonin (Melatonin 3 Mg Tablet) 6 mg PO BEDTIME PRN PRN Reason: Insomnia Metformin HCl (Metformin Hcl 500 Mg Tablet) 500 mg PO BIDWM [facility] Last Admin: 01/02/23 09:08 Dose: Not Given Ondansetron HCl (Ondansetron Hcl 4 Mg/2 Ml Vial) 4 mg IVPUSH Q8H PRN PRN Reason: Nausea and Vomiting Sodium Chloride (0.9 % Sodium Chloride Flush 3 Ml Syringe) 3 ml IVFLUSH QSHIFT [facility] Last Admin: 01/02/23 09:11 Dose: 3 ml Home Medications Medication Instructions Recorded Confirmed Last Taken Type No Known Home Meds 12/31/22 12/31/22 Unknown History Exam Height,Weight and Vital Signs: Height 5 ft 4 in Weight 88.5 kg Last Vital Signs Temp 96.8 F 01/02/23 07:54 Pulse 91 01/02/23 07:54 Resp 17 01/02/23 07:54 BP 120/56 L 01/02/23 07:54 Pulse Ox 97 01/02/23 07:54 O2 Del Method Room Air 01/02/23 07:54 Pertinent Lab Results Pertinent Lab Results: Laboratory Tests 12/31/22 12/31/22 12/31/22 11:19 11:20 14:57 WBC 9.7 10.3 RBC 3.77 L 3.48 L Hgb 8.6 L 8.1 L Hct 28.9 L 26.8 L MCV 76.7 L 77.0 L MCH 22.8 L 23.3 L MCHC 29.8 L 30.2 L RDW 15.2 15.3 Plt Count 394 359 MPV 10.2 9.4 Immature Gran % (Auto) 0.8 H 0.8 H Neut % (Auto) 68.1 61.9 Lymph % (Auto) 21.1 26.3 [place] % (Auto) 5.3 6.0 Eos % (Auto) 4.2 H 4.5 H Baso % (Auto) 0.5 0.5 Lymph # (Auto) 2.1 2.7 [place] # (Auto) 0.5 0.6 Eos # (Auto) 0.4 0.5 H Baso # (Auto) 0.1 0.1 Abs Immat Gran (auto) 0.08 H 0.08 H Absolute Neuts (auto) 6.6 6.4 Absolute Nucleated RBC 0.000 0.000 Nucleated RBC % (auto) 0.0 0.0 PT 10.9 L INR 0.9 Sodium 138 Potassium 3.9 Chloride 105 Carbon Dioxide 25 Anion Gap 12 BUN 10 Creatinine 0.75 Estim Creat Clear Calc 108.4 Estimated GFR > 60 POC Glucose Random Glucose 328 H Estimat Average Glucose 194 Hemoglobin A1c % 8.4 H Calcium 9.5 Magnesium 1.9 Total Bilirubin 0.3 Direct Bilirubin 0.1 AST 73 H ALT 130 H Alkaline Phosphatase 109 Total Protein 7.5 Albumin 4.1 Lipase 52 Beta HCG, Quant < 2 Urine Color Yellow Urine Appearance Clear Urine pH 6.0 Ur Specific [place] 1.020 Urine Protein Negative Urine Glucose (UA) >=1000 H Urine Ketones Negative Urine Blood Negative Urine Nitrite Negative Ur Leukocyte Esterase Negative Urine RBC 0-2 Urine WBC 0-5 Ur Squamous Epith Cells 3-5 Urine Bacteria None Seen Hyaline Casts 0-2 Stool Occult Blood NEGATIVE Blood Type O Positive Antibody Screen NEGATIVE 01/01/23 01/01/23 01/01/23 05:19 12:40 16:41 WBC 10.7 RBC 3.77 L Hgb 8.5 L Hct 28.9 L MCV 76.7 L MCH 22.5 L MCHC 29.4 L RDW 15.4 Plt Count 389 MPV 9.6 Immature Gran % (Auto) Neut % (Auto) Lymph % (Auto) [place] % (Auto) Eos % (Auto) Baso % (Auto) Lymph # (Auto) [place] # (Auto) Eos # (Auto) Baso # (Auto) Abs Immat Gran (auto) Absolute Neuts (auto) Absolute Nucleated RBC 0.000 Nucleated RBC % (auto) 0.0 PT INR Sodium Potassium Chloride Carbon Dioxide Anion Gap BUN Creatinine Estim Creat Clear Calc Estimated GFR POC Glucose 251 H 196 H Random Glucose Estimat Average Glucose 189 Hemoglobin A1c % 8.2 H Calcium Magnesium Total Bilirubin Direct Bilirubin AST ALT Alkaline Phosphatase Total Protein Albumin Lipase Beta HCG, Quant Urine Color Urine Appearance Urine pH Ur Specific [place] Urine Protein Urine Glucose (UA) Urine Ketones Urine Blood Urine Nitrite Ur Leukocyte Esterase Urine RBC Urine WBC Ur Squamous Epith Cells Urine Bacteria Hyaline Casts Stool Occult Blood Blood Type Antibody Screen 01/01/23 01/02/23 01/02/23 19:17 05:49 07:06 WBC 10.4 RBC 3.81 L Hgb 8.8 L Hct 29.4 L MCV 77.2 L MCH 23.1 L MCHC 29.9 L RDW 15.3 Plt Count 417 H MPV 10.5 Immature Gran % (Auto) Neut % (Auto) Lymph % (Auto) [place] % (Auto) Eos % (Auto) Baso % (Auto) Lymph # (Auto) [place] # (Auto) Eos # (Auto) Baso # (Auto) Abs Immat Gran (auto) Absolute Neuts (auto) Absolute Nucleated RBC 0.000 Nucleated RBC % (auto) 0.0 PT INR Sodium Potassium Chloride Carbon Dioxide Anion Gap BUN Creatinine Estim Creat Clear Calc Estimated GFR POC Glucose 199 H 165 H Random Glucose Estimat Average Glucose Hemoglobin A1c % Calcium Magnesium Total Bilirubin Direct Bilirubin AST ALT Alkaline Phosphatase Total Protein Albumin Lipase Beta HCG, Quant Urine Color Urine Appearance Urine pH Ur Specific [place] Urine Protein Urine Glucose (UA) Urine Ketones Urine Blood Urine Nitrite Ur Leukocyte Esterase Urine RBC Urine WBC Ur Squamous Epith Cells Urine Bacteria Hyaline Casts Stool Occult Blood Blood Type Antibody Screen 01/02/23 11:15 WBC RBC Hgb Hct MCV MCH MCHC RDW Plt Count MPV Immature Gran % (Auto) Neut % (Auto) Lymph % (Auto) [place] % (Auto) Eos % (Auto) Baso % (Auto) Lymph # (Auto) [place] # (Auto) Eos # (Auto) Baso # (Auto) Abs Immat Gran (auto) Absolute Neuts (auto) Absolute Nucleated RBC Nucleated RBC % (auto) PT INR Sodium Potassium Chloride Carbon Dioxide Anion Gap BUN Creatinine Estim Creat Clear Calc Estimated GFR POC Glucose 118 H Random Glucose Estimat Average Glucose Hemoglobin A1c % Calcium Magnesium Total Bilirubin Direct Bilirubin AST ALT Alkaline Phosphatase Total Protein Albumin Lipase Beta HCG, Quant Urine Color Urine Appearance Urine pH Ur Specific [place] Urine Protein Urine Glucose (UA) Urine Ketones Urine Blood Urine Nitrite Ur Leukocyte Esterase Urine RBC Urine WBC Ur Squamous Epith Cells Urine Bacteria Hyaline Casts Stool Occult Blood Blood Type Antibody Screen Airway Mallampati Class: II TM Dist: >3cm Neck ROM: Full Heart: RRR Lungs: CTA Assessment and Plan Assessment Anesthesia Assessment: Anesthesia Plan Discussed and Chart Reviewed Final Anesthetic Review Family History of Problems with Anesthesia: No History of Problems with Anesthesia: No NPO: Yes ASA Class: III Final Preanesthetic Review: No Changes in Pt Med Stat, Meds/Allgs Chart Reviewed, Consent Obtained/Reviewed and Anes Risks/Benef Reviewed Patient Risk: Intermediate Procedure Risk: Low Anesthetic Plan Anesthetic Plan: GA Disposition: Standard PACU
--- NOTE | 2023-01-02 12:44 | MHC.SHP ---
Pre-Procedural Eval Section A Date of Service: 01/02/23 The patient is an INPATIENT: Yes The History & Physical has been completed within 30 days and I have reviewed it.: Yes Section B Chief Complaint: GI bleed, acute blood loss anemia Allergies: Allergies Allergy/AdvReac Type Severity Reaction Status Date / Time No Known Allergies Allergy Verified 12/31/22 09:44 seasonal Allergy Unknown Unknown Uncoded 10/11/20 20:01 Plan I have reviewed the history and physical and performed a pertinent physical examination on my patient. No changes have occurred unless specified. Time Spent With Patient Time: Total time managing care of this patient today ____ minutes.
--- NOTE | 2023-01-02 12:44 | W.PM.OPN ---
Operative Note Operative Note Date of Service: 01/02/23 Narrative: Operative Information Procedure Description: EGD, Colonoscopy Indication: anemia and rectal bleeding Anesthesia: MAC FLEXIBLE TRANSORAL UPPER GASTROINTESTINAL ENDOSCOPY AND COLONOSCOPY PROCEDURE NOTE UPPER ENDOSCOPY Consent: Indications for the procedure and potential complications of bleeding, perforation, reaction to medications and missed diagnosis were discussed with the patient and informed consent was obtained. Instrument: Olympus GIF H 190 J mid size upper endoscope Monitoring: Vital signs and clinical assessment, continuous EKG monitoring, Pulse oximetry, Carbon Dioxide monitoring and blood pressure monitoring were done throughout the procedure. Procedure: The patient was placed in the left lateral decubitis position and pre-procedure medications were administered and a bite block was placed. The endoscope was inserted into the mouth and advanced under direct vision to the third part of duodenum. A careful inspection was made as the upper endoscope was withdrawn including a retroflexed examination of the proximal stomach; Findings and interventions are described below. Findings: Larynx:normal Esophagus: GE junction at 39 cm, diaphragm hiatus at 39 cm, normal mucosa Stomach: Patchy gastritis. Biopsies were obtained. Grade 2 flap valve on retroflexed examination of the cardia. Duodenum: Normal bulb and descending duodenum, bx taken Intervention: Biopsies as noted above COLONOSCOPY Instrument: Olympus variable stiffness pediatric scope 190L Colonoscopy Monitoring: Vital signs and clinical assessment, continuous EKG monitoring, Pulse oximetry, Carbon Dioxide monitoring and blood pressure monitoring were done throughout the procedure. Colon withdrawal time was 6 minutes. Procedure: The patient was placed in the left lateral decubitis position and pre-procedure medications were administered. After a digital rectal examination of the ano-rectum, the video colonoscope was inserted into the rectum and advanced through the colon to the cecum/TI. The colonoscope was slowly withdrawn in a retrograde panoramic fashion and the colon mucosa was carefully examined including a retroflexed view of the rectum. Findings and interventions are described below. Procedure Difficulty: Findings: Terminal Ileum-normal Cecum:normal Ascending Colon: normal Transverse Colon -normal Descending Colon:normal Sigmoid Colon: 5-7 mm sessile polyp removed with cold snare Rectum: Retroflexion with medium sized inflammed internal hemorrhoids, grade II with red king consistent with recent bleeding Anorectum - normal Colon preparation: [place] Bowel Preparation Scale Right colon; 1-2 Transverse colon: 2 Left colon; 2 (0 = Unprepared colon segment with mucosa not seen due to solid stool that cannot be cleared. 1 = Portion of mucosa of the colon segment seen, but other areas of the colon segment not well seen due to staining, residual stool and/or opaque liquid. 2 = Minor amount of residual staining, small fragments of stool and/or opaque liquid, but mucosa of colon segment seen well. 3 = Entire mucosa of colon segment seen well with no residual staining, small fragments of stool or opaque liquid) Impression and Post Procedure Diagnosis: Endoscopy Findings: gastritis Colonoscopy Findings: polyp internal hemorrhoids Plan: Await Pathology results Repeat Colonoscopy in 1-2 years due to areas of fair prep or earlier if clinically indicated High fiber diet leaflet avoid straining at stool, epsom salts and sitz bath, anusol supps or cream Above findings were reviewed with the patient and relevant handouts were provided if indicated.
[2023-01-02 13:05] VITALS: BP 102/63; PULSE 94; RESP 15; TEMP 36.3; O2SAT 97
[2023-01-02 13:10] VITALS: BP 107/71; PULSE 93; RESP 16; O2SAT 96
[2023-01-02 13:15] VITALS: BP 112/67; PULSE 90; RESP 16; TEMP 36.3; O2SAT 96
[2023-01-02 13:20] VITALS: BP 121/72; PULSE 89; RESP 16; TEMP 36.3; O2SAT 96
--- NOTE | 2023-01-02 15:02 | MHC.CM.PN ---
PT WILL DC HOME TODAY WITH NO SERVICES VIA FAMILY TRANSPORT
[2023-01-03 08:10] LABS: HBS Num1 105.96 mIU/mL (0-7.99); HBc Num1 5.89 S/CO (0.00-0.79); HBsAGNum1 0.32 S/CO (0.00-0.99); Hepatitis B Surface Antigen Negative (Negative); ~HepC Num1 0.09 S/CO (0.00-0.79); ~Hepatitis B Surface Antibody REACTIVE (Nonreactive); ~Hepatitis C Antibody Nonreactive (Nonreactive)
[2023-01-03 09:50] LABS: HBc Num2 6.16 S/CO; Hepatitis B Core Antibody Reactive (Nonreactive)
--- NOTE | 2023-01-03 19:28 | P.DS_ITS ---
DS: Providers Provider Date of Service: 01/02/23 Date of admission: 12/31/22 16:30 Primary care physician: None Physician Consults: 12/31/22 16:29 Consult to Gastroenterology Routine Consulting Provider: Eri Sewell Reason for consultation: gi bleed, anemia Has provider been notified: Yes DS: Diagnosis Discharge Diagnosis (1) Acute blood loss anemia: Status: Acute DS: Summary Hospital Course Hospital Course: A 37-year-old female with no significant past medical history presented to the ED with rectal bleeding. She reported having intermittent blood in her stool for months, but for the past several days, she had not noticed any blood. However, today she noted more blood when she wiped. She had also been experiencing episodes of dizziness, fatigue, and shortness of breath, as well as occasional epigastric pain. No weight loss. An outpatient lab test showed a hemoglobin of 8.6 g/dL, and she was sent to the ED for further workup. A repeat hemoglobin level was unchanged. Last known hemoglobin was 11 in october 2020. She takes no medications, including [id number] pain relievers. Hospital course: Acute blood loss anemia, rectal bleed. H/H was stable. Underwent EGD + Colonoscpy on 01/02 and found to have internal hemorrhoid, gastritis, polyp. Advise to use Preperaton H, fiber diet, stool softners. New Onset of diabetes. Random blood sugar was 328, Hemoglobin A1 C was 8.2, no acidosis, she was asymptomatic. Initiated on Metformin 500 bid, advised diabetic diet,weight loss. She is familar with diabetes as mother has it. She needs to follow up on PCP mild elevated LFTs--likely from fatty liver disease 9 mm hypodensity along the posterior body of the pancreas is not able to be fully characterize but probably a cyst. Consider a six-month follow-up or MRI evaluation to confirm the cystic nature of this lesion. --will consider outpatient MRI Time Attestation Discharge coordination time: Greater than 30 minutes Quality: Safe Use of Opioids Does Pt have an Active Cancer Diagnosis on the Problem List?: No Quality: Stroke Does the patient have a stroke diagnosis?: No Physical Exam Vital Signs: Vital Signs: Last Vital Signs Temp 97.4 F 01/02/23 13:20 Pulse 89 01/02/23 13:20 Resp 16 01/02/23 13:20 BP 121/72 01/02/23 13:20 Pulse Ox 96 01/02/23 13:20 O2 Del Method Room Air 01/02/23 13:20 BMI result Body Mass Index 33.5 DS: Data Data Completed and Pending Pending studies at discharge: Pending at discharge 01/02/23 13:06 Surgical [PTH] Routine Labs on day of discharge: Laboratory Results - last 24 hr 01/01/23 05:19 Hep Bs Antigen Negative Hep Bs Antibody REACTIVE Hep B Core Total Ab Reactive Hep B Core IgM Ab Cancelled Hepatitis C Ab (EIA) Nonreactive Discharge Plan Discharge Anticipated Discharge Date/Time: 01/02/23 13:16 Patient Disposition: Home, Self-Care Discharge Diagnosis: Hemorrhoid, acute blood loss anemia, new onset diabetes Referrals: Physician,None [Primary Care Provider] - 1 Week Discharge Medications: New metformin 500 mg Tablet 500 mg PO BIDWM Qty: 60 1RF Preparation H 0.25-14-74.9 % ointment 1 appl VA BID Qty: 57 0RF Rx Instructions: apply to hemorrhoid bid docusate sodium [Col-Rite] 100 mg capsule 100 mg PO BID Qty: 60 0RF Rx Instructions: can get over the counter (DME) FreeStyle Lite Strips Strip See Rx Instructions .ROUTE .MEDSUPPLY Qty: 10 0RF Rx Instructions: As directed (DME) blood-glucose meter [FreeStyle Lite Meter] Kit See Rx Instructions .ROUTE .MEDSUPPLY Qty: 1 0RF Rx Instructions: As directed alcohol swabs Pads, Medicated 1 pad TOPICAL QIDACHS Qty: 100 0RF Rx Instructions: Use four times a day or as directed. (DME) lancets [FreeStyle Lancets] 28 gauge misc Qty: 100 0RF Rx Instructions: Test four times a day or as directed. polyethylene glycol 3350 [Miralax] 17 gram/dose powder 17 g PO DAILY Qty: 238 0RF Rx Instructions: may take OTC Discharge Orders: Discharge Order (Routine); Ordered 01/02/23 Ordered By: Eric Nuemann Diet: Diabetic diet Activity on Discharge: As tolerated Stand Alone Forms: Patient Portal Discharge page Care Plan Goals: full recovery from hemorrhoid, resulition of anemia, and control of diabetes Health Concerns: new onset diabetes hemorrhoid anemia Plan of Treatment: take metformin 500 mg twice daily for diabetes, check your sugars before meals and at bedtime a and record date, time and sugars number, follow up with your doctor in a week, Your mom may be able to help with how to use the meter. call to schedule appointment Here are some general guidelines for a diabetes diet: * Eat plenty of fruits,?vegetables,?and whole grains. * Choose lean protein sources,?such as fish,?poultry,?and beans. * Limit unhealthy fats,?such as saturated and trans fats. * Limit added sugar and processed foods. * Read food labels carefully and choose foods that are low in sugar and sodium. for hemorrhoid use preparation H, take Colace and Miralax for constipation Assessment: as above Discharge Date/Time: 01/02/23 14:40
== END 2023-01-02 14:40 | disposition home or self-care (01) | DRG 241 ==
LOC: HO.ED 15:58 → HO.EDOVER 16:43 → HO.S3 19:06
PROVIDERS: Internal Medicine Gastroenterology; Physician Assistant; Admitting Provider Internal Medicine; Emergency Provider Emergency Medicine; Visit Provider Internal Medicine
PROC: 0DB98ZX Excision of Duodenum, Via Natural or Artificial Opening Endoscopic, Diagnostic (ICD-10-PCS; principal; 2023-01-02 12:00)
DX: K29.71 Gastritis, unspecified, with bleeding (principal); K86.2 Cyst of pancreas; K76.0 Fatty (change of) liver, not elsewhere classified; D62 Acute posthemorrhagic anemia; K64.1 Second degree hemorrhoids; E11.9 Type 2 diabetes mellitus without complications; E66.9 Obesity, unspecified; K63.5 Polyp of colon; Z23 Encounter for immunization
CPT/HCPCS: 36415; 71045; 74178; 80048; 80076; 81001; 82272; 82947; 83036; 83690; 83735; 84702; 85025; 85027; 85610; 86704; 86706; 86803; 86850; 86900; 86901; 87340; 88305; 88342; 90686; 93005; 99221; 99285; C9113; J2704; J3010; Q9967

== ENCOUNTER → 2022-12-31 09:56 | Outpatient (BNV) | payer OTHER, SELFPAY | PROVIDERS: Emergency Provider Emergency Medicine; Visit Provider Internal Medicine | DX: D62 Acute posthemorrhagic anemia (principal) | CPT/HCPCS: 99223; 99232; 99239 ==

== ENCOUNTER → 2022-12-31 16:30 | Outpatient (BNV) | payer OTHER, SELFPAY | PROVIDERS: Admitting Provider Internal Medicine; Emergency Provider Emergency Medicine; Visit Provider Internal Medicine Gastroenterology | DX: D62 Acute posthemorrhagic anemia (principal); K29.70 Gastritis, unspecified, without bleeding; K63.5 Polyp of colon; K64.8 Other hemorrhoids | CPT/HCPCS: 43239; 45385; 99222 ==

== ENCOUNTER → 2023-01-07 08:53 | Outpatient (BNVA) | payer OTHER, SELFPAY | PROVIDERS: Visit Provider Internal Medicine Gastroenterology | DX: Z11.0 Encounter for screening for intestinal infectious diseases (principal) | CPT/HCPCS: 99211 ==

== ENCOUNTER 2023-01-07 14:43 | Outpatient (REF) | payer OTHER, SELFPAY ==
[2023-01-10 14:04] LABS: H Pylori Breath Test Positive (Negative)
== END 2023-01-07 14:44 | disposition home or self-care (01) ==
LOC: HO.LNP 14:43
PROVIDERS: Visit Provider Internal Medicine Gastroenterology
DX: Z11.0 Encounter for screening for intestinal infectious diseases (principal)
CPT/HCPCS: 83013

== ENCOUNTER 2023-05-11 15:44 | Outpatient (AMB) | payer OTHER, SELFPAY ==
--- NOTE | 2023-05-11 15:50 | AM.OFFWIN_ITS ---
Intake Vital Signs 05/11/23 15:51 Height 5 ft 4 in Weight 186 lb BMI 31.9 BP 118/74 Blood Pressure Location Lt brachial Position Sitting Pulse 106 H Pulse Source Pulse Oximeter Temp 97.9 F Temp Source Oral Pulse Oximetry (%) 100 Intake Visit Reasons: EP Anemia levels/DM Ok per Dr. Allen Intake Note: pt is here for concern of anemia Patient Tobacco Use Status: Never used Tobacco Allergies No Known Allergies Allergy (Verified 05/11/23 16:16) seasonal Allergy (Unknown, Uncoded 05/11/23 16:16) Unknown Medication List - Last Reconciled 05/11/23 by Williams Pedraza MD metformin 1,000 mg (2 x 500 mg) PO BID 90 days Do you need a note to return to daycare/school/sports/work: No HPI HPI Comments History of Present Illness Details 37 Year old female presents to the [facility] e for a sick visit. Patient was admitted in December to [facility]. She was found to be diabetic and anemic. After discharge she could not establish with a primary care provider. She has no longer taking metformin. Patient presents to the clinic today requesting a refill on the same and medications till she can made her primary care provider. [facility] Medical History (Updated 01/10/23 @ 00:01 by Shanice Madrid) Obesity No known health problems Social History Household Members: Family Household Members Other:: 7 Housing: House Do you presently have visiting nurse or other home services: No Alcohol intake: unknown Patient Tobacco Use Status: Never used Tobacco e-Cigarette/Vaping Use: Never Used Second Hand Smoke Exposure: No service: No Physical Exam Vital Signs: Last Vital Signs Temp 97.9 F 05/11/23 15:51 Pulse 106 H 05/11/23 15:51 BP 118/74 05/11/23 15:51 Pulse Ox 100 05/11/23 15:51 BMI result Body Mass Index 31.9 Const General: cooperative and healthy appearing Nutritional Appearance: well nourished Orientation/consciousness: patient oriented x3 Limitations: no limitations HEENT Head: Yes normal to inspection Eyes General: appearance normal, both eyes and all related structures Neck Neck: Yes normal visual inspection Chest Chest palpation & inspection: normal palpation of entire chest wall Resp Effort & Inspection: normal respiratory effort Neuro General: patient oriented x3 Assessment & Plan Assessment & Plan (1) Diabetes mellitus: Code(s): E11.9 - Type 2 diabetes mellitus without complications Plan: Metformin called in. BW ordered. A telephone message has been sent to schedule PCP with a provider in this office [place]. (2) Anemia: Code(s): D64.9 - Anemia, unspecified Plan: BW ordered. Will call with results Orders: Orders Lipid Panel Today D64.9 - Anemia, unspecified, E11.9 - Type 2 diabetes mellitus without complications Hemoglobin A1c Today D64.9 - Anemia, unspecified, E11.9 - Type 2 diabetes mellitus without complications Thyroid Stimulating Hormone Today D64.9 - Anemia, unspecified, E11.9 - Type 2 diabetes mellitus without complications UA and rflx microscopic Today D64.9 - Anemia, unspecified, E11.9 - Type 2 diabetes mellitus without complications Basic Metabolic Panel Today D64.9 - Anemia, unspecified, E11.9 - Type 2 diabetes mellitus without complications Complete Blood Count no Diff Today D64.9 - Anemia, unspecified, E11.9 - Type 2 diabetes mellitus without complications Liver Panel Today D64.9 - Anemia, unspecified, E11.9 - Type 2 diabetes mellitus without complications Medications: New metformin 1,000 mg (2 x 500 mg) PO BID 90 days 360 tabs 1RF Coding Level of Care Code Est Pt Level 4 (20542) Diagnoses Diabetes mellitus E11.9 Anemia D64.9
[2023-05-11 15:51] VITALS: BP 118/74; PULSE 106; TEMP 36.6; O2SAT 100; BMI 31.9
== END 2023-05-11 16:27 | disposition home or self-care (01) ==
PROVIDERS: Visit Provider Internal Medicine
DX: E11.9 Type 2 diabetes mellitus without complications (principal); D64.9 Anemia, unspecified
CPT/HCPCS: 99214

== ENCOUNTER 2023-05-12 08:58 | Outpatient (REF) | payer OTHER, SELFPAY ==
[2023-05-12 10:17] LABS: Appearance Urine Cloudy; Color Urine Yellow; Glucose Urine UA Negative (Negative); Leukocyte Esterase Urine Trace (Negative); Nitrite Urine Negative (Negative); PH 5.5 (5.0-9.0); Specific Gravity - Urine 1.015 (1.005-1.025); UMIC TRIGGER UA YES; Urine Blood Negative (Negative); Urine Ketones Negative (Negative); Urine Protein Negative (Neg-Trace)
[2023-05-12 10:24] LABS: Hematocrit 24.2 % (37.0-47.0); Mean Corpuscular HGB Conc 25.6 g/dl (31.0-35.0); Mean Corpuscular Hemoglobin 16.1 pg (27.0-33.0); Mean Platelet Volume 10.2 fL (9.4-12.3); NRBC Pct Auto 0.2 /100WBC (0.0-0.2); Platelet Count 508 X10*3/uL (160-400); Red Blood Count 3.86 X10*6/uL (4.20-5.50); Red Cell Distribution Width 21.6 % (11.0-16.0); White Blood Count 11.6 X10*3/uL (4.8-10.8)
[2023-05-12 10:40] LABS: Estimated Average Glucose 209 mg/dL; Hemoglobin A1c % 8.9 % (<6.0)
[2023-05-12 10:41] LABS: Bacteria Urine 2+ (None Seen); Hyaline Casts Urine 0-2 /LPF (0-2); RBC Urine 0-2 /HPF (0-2); WBC Urine 0-5 /HPF (0-5)
[2023-05-12 10:44] LABS: Hemoglobin 6.2 g/dl (12.0-16.0); Mean Corpuscular Volume 62.7 fL (80.0-98.0)
[2023-05-12 11:04] LABS: Alanine Aminotransferase 51 U/L (0-31); Albumin Level 4.3 g/dL (3.5-5.0); Alkaline Phosphatase 90 U/L (39-117); Anion Gap 12 (12-20); Aspartate Amino Transferase 29 U/L (5-31); Bilirubin Direct 0.2 mg/dL (0.0-0.5); Bilirubin Total 0.6 mg/dL (0.0-1.0); Blood Urea Nitrogen 12 mg/dL (9-16); Calcium 9.3 mg/dL (8.4-10.2); Carbon Dioxide 22 mmol/L (22-29); Chloride 105 mmol/L (96-108); Cholesterol 153 mg/dL (<200); Estimated Glomerular Filt Rate > 60; Glucose Random 213 mg/dL (60-115); HDL Cholesterol 26 mg/dL (>40); LDL Cholesterol Calculated 92 mg/dL (<100); Potassium 3.7 mmol/L (3.3-5.1); Sodium 135 mmol/L (135-145); Triglycerides 177 mg/dL (<150)
== END 2023-05-12 08:59 | disposition home or self-care (01) ==
LOC: HO.HMGCLDS 08:58
PROVIDERS: PCP Internal Medicine; Visit Provider Internal Medicine
DX: E11.9 Type 2 diabetes mellitus without complications (principal); D64.9 Anemia, unspecified
CPT/HCPCS: 36415; 80048; 80061; 80076; 81001; 83036; 84443; 85027

== ENCOUNTER 2023-05-13 22:38 | Inpatient (IN) | payer OTHER, SELFPAY ==
--- NOTE | 2023-05-13 | ECG_ITS ---
Test Reason : DIZZINESS Blood Pressure : / mmHG Vent. Rate : 097 BPM Atrial Rate : 097 BPM P-R Int : 150 ms QRS Dur : 088 ms QT Int : 352 ms P-R-T Axes : 044 007 014 degrees QTc Int : 447 ms Normal sinus rhythm Normal ECG When compared with ECG of 13-MAY-2023 23:45, QRS axis Shifted left No significant changes seen compared to original EKG Referred By: Generic ED Physician Electronically Signed By:LUCY HARRELL MD
--- NOTE | 2023-05-13 | ECG_ITS ---
Test Reason : DIZZINESS Blood Pressure : / mmHG Vent. Rate : 096 BPM Atrial Rate : 096 BPM P-R Int : 134 ms QRS Dur : 084 ms QT Int : 354 ms P-R-T Axes : 000 177 176 degrees QTc Int : 447 ms Suspect limb lead reversal, interpretation assumes no reversal Normal sinus rhythm Right axis deviation ST & T wave abnormality, consider inferior ischemia Abnormal ECG When compared with ECG of 31-DEC-2022 10:56, QRS axis Shifted right T wave inversion now evident in Lateral leads Repeat EKG Referred By: Generic ED Physician Electronically Signed By:LUCY HARRELL MD
[2023-05-13 23:30] VITALS: BP 152/82; PULSE 97; RESP 19; TEMP 36.4; O2SAT 100; BMI 32.2
--- NOTE | 2023-05-13 23:48 | MHC.EDTECH ---
Patient brought into triage,EKG taken per order and signed by provider,labs,and Type N Screen obtained and sent to lab,band applied to RT wrist.
[2023-05-13 23:55] LABS: Basophils Absolute Auto 0.1 X10*3/uL (0.0-0.2); Basophils Percent Auto 0.7 % (0-2); Eosinophils Absolute Auto 0.3 X10*3/uL (0.0-0.4); Eosinophils Percent Auto 2.6 % (0-4); Hematocrit 22.4 % (37.0-47.0); Imm Gran Abs Auto 0.06 X10*3/uL (0.00-0.03); Imm Gran Pct Auto 0.5 % (0.0-0.4); Lymphocytes Absolute Auto 3.4 X10*3/uL (1.2-4.9); Lymphocytes Percent Auto 25.7 % (20-40); Mean Corpuscular HGB Conc 25.9 g/dl (31.0-35.0); Mean Platelet Volume 9.7 fL (9.4-12.3); Monocytes Absolute Auto 0.7 X10*3/uL (0.1-1.2); Monocytes Percent Auto 5.5 % (2-11); NRBC Pct Auto 0.2 /100WBC (0.0-0.2); Neutrophils Absolute Auto 8.7 x10*3/uL (2.0-8.3); Platelet Count 473 X10*3/uL (160-400); Red Blood Count 3.62 X10*6/uL (4.20-5.50); Red Cell Distribution Width 21.2 % (11.0-16.0); White Blood Count 13.3 X10*3/uL (4.8-10.8)
[2023-05-13 23:56] LABS: MANUAL DIFF FLAG NO; Mean Corpuscular Volume 61.9 fL (80.0-98.0)
[2023-05-13 23:58] LABS: Hemoglobin 5.8 g/dl (12.0-16.0)
[2023-05-14] VITALS (13 sets, daily range): BP systolic 112–142; BP diastolic 53–67; PULSE 85–101; RESP 16–20; TEMP 35.9–37; O2SAT 96–100
--- NOTE | 2023-05-14 | MHC.EDTECH ---
Repeat EKG taken per order and signed by provider
[2023-05-14 00:08] LABS: Alanine Aminotransferase 43 U/L (0-31); Albumin Level 4.1 g/dL (3.5-5.0); Alkaline Phosphatase 96 U/L (39-117); Anion Gap 15 (12-20); Aspartate Amino Transferase 24 U/L (5-31); Bilirubin Total 0.4 mg/dL (0.0-1.0); Blood Urea Nitrogen 12 mg/dL (9-16); Calcium 9.5 mg/dL (8.4-10.2); Carbon Dioxide 21 mmol/L (22-29); Chloride 106 mmol/L (96-108); Creatinine Clr Calc Pharmacy 110.3; Estimated Glomerular Filt Rate > 60; Glucose Random 226 mg/dL (60-115); Potassium 3.9 mmol/L (3.3-5.1); Sodium 138 mmol/L (135-145); Total Protein 7.8 g/dL (6.5-8.0)
--- NOTE | 2023-05-14 00:58 | ED_ITS ---
HPI - General Adult General Chief complaint: Recheck/Abnormal Lab/Rx Stated complaint: Abnormal labs Time Seen by Provider: 05/14/23 00:32 Source: patient Mode of arrival: ambulatory Limitations: no limitations History of Present Illness HPI narrative: Patient comes to the emergency room complaining of a low hemoglobin. Patient states that today her primary care physician did blood work, called her and told her that her hemoglobin is 6.2. Patient does have history of anemia. Patient states that she has history of bleeding internal hemorrhoids. Patient is on IM control pills Q 3 months and has no menstrual periods. Patient states that she has been feeling lightheaded, tachycardic with shortness of breath for the last couple of weeks. Patient denies any chest pain. Related Data Previous Rx's ?Medication ?Instructions ?Recorded metformin 500 mg tablet 1,000 mg (2 x 500 mg) PO BID 90 05/11/23 days #360 tabs ferrous sulfate 325 mg (65 mg 325 mg PO DAILY #90 tabs 05/13/23 iron) tablet (Feosol) Allergies Allergy/AdvReac Type Severity Reaction Status Date / Time No Known Allergies Allergy Verified 05/13/23 23:31 seasonal Allergy Unknown Unknown Uncoded 05/11/23 16:16 Review of Systems 2 Review of Systems: Constitutional : No Weight loss, No Fever, No Chills, No Night Sweats, No Fatigue, No Malaise ENT/Mouth : No Hearing loss, No Ear Pain, No Nasal Congestion, No Sinus Pain, No Hoarseness, No sore throat, No Rhinorrhea, No Swallowing Difficulty Eyes: No Eye Pain, No Swelling, No Redness, No Foreign Body, No Discharge, No Vision Changes Cardiovascular : No Chest Pain, complaining of shortness of breath with exertion, lightheaded and palpitations Respiratory : No Cough, No Sputum, No Wheezing, No Smoke Exposure, No Dyspnea Gastrointestinal : No Nausea, No Vomiting, No Diarrhea, No Constipation, No abdominal Pain, intermittent heavy bleeding of internal hemorrhoids Genitourinary : no irregular bleeding, No Dysuria, No Urinary Frequency, No Hematuria, No Urinary Incontinence, No Urgency, No Flank Pain, No Urinary Flow Changes, No Hesitancy Musculoskeletal : No joint pain, No Myalgias, No Joint Swelling Skin : No Skin Lesions, No rash Neuro : No Weakness, No Numbness, No Paresthesias, No Loss of Consciousness, No Dizziness, No Headache Psych : No Anxiety/Panic, No Depression, No SI/HI/AH/VH, No Social Issues, Heme/Lymph: No Bruising, No Bleeding,No Lymphadenopathy Endocrine : No Polyuria, No Polydipsia, No Temperature Intolerance PMF Past Medical History Medical History Obesity No known health problems Social History Social History Household Members: Family Household Members Other:: 7 Housing: House Do you presently have visiting nurse or other home services: No Alcohol intake: unknown Patient Tobacco Use Status: Never used Tobacco Smoked in Last 30 Days: No e-Cigarette/Vaping Use: Never Used Second Hand Smoke Exposure: No Use of substances other than those prescribed or required for medical reasons: No Advance Directives: No Advance Directives Information Provided: Yes Patient : No service: No Physical Exam ED Vital Signs: Vital Signs - 24 hr 05/13/23 23:30 05/14/23 01:12 05/14/23 01:27 Temperature 97.6 F 98.4 F 98.5 F Pulse Rate 97 89 89 Respiratory Rate 19 16 18 Blood Pressure 152/82 H 123/67 123/61 Pulse Oximetry 100 Oxygen Delivery Method Room Air BMI result Body Mass Index 32.2 Const Other: Appearance: Alert. Oriented X3. No acute distress. Eyes: Pupils equal, round and reactive to light. ENT: Pharynx normal. Neck: Normal inspection. Neck supple. No lymph nodes noted. No crepitus CVS: Normal heart rate and rhythm. Pulses normal. Normal S1 and S2 Respiratory: No respiratory distress. Breath sounds normal. No Wheezing. No rales Abdomen: Soft and nontender. No rigidity. No distention. Digital rectal exam shows brown stool Skin: Skin warm and dry. Normal skin color. Normal skin turgor. Extremities: No lower extremity edema. No Lacerations. No Rash Neuro: Oriented X 3. No motor deficit. No sensory deficit. Moving all extremities. No slurred speech. CN 2 through 12 grossly intact Psych: calm, cooperative, normal affect Course Course Course Narrative: - Medical Decision Making Medical Decision Making MDM Narrative: -my interpretation of labs: Hemoglobin is 5.8. , chemistry -I discussed with the patient the risks versus benefits of a blood transfusion. Patient agreeable to proceed with the transfusion. Consent signed -patient will need at least 3 units of blood -also likely, patient will need a GI/surgery consult, patient may need internal hemorrhoid ligation -patient tolerating the blood transfusion well. Differential Diagnosis Differential Diagnoses: The differential diagnosis associated with the presentation includes (Lower GI bleed, internal hemorrhoid, external hemorrhoid) Admission/Observation Consideration of admission/observation: Escalation of care including admission/observation considered Consult Healthcare Provider Management of the patient was discussed with: Hospitalist Lab Data MDM Lab Attestation statement: I reviewed the patient's lab results. 05/13/23 23:44 05/13/23 23:44 Labs: Lab Results 05/13/23 05/14/23 Range/Units 23:44 01:31 WBC 13.3 H (4.8-10.8) X10*3/uL RBC 3.62 L (4.20-5.50) X10*6/uL Hgb 5.8 L* (12.0-16.0) g/dl Hct 22.4 L (37.0-47.0) % MCV 61.9 L (80.0-98.0) fL MCH 16.0 L (27.0-33.0) pg MCHC 25.9 L (31.0-35.0) g/dl RDW 21.2 H (11.0-16.0) % Plt Count 473 H (160-400) X10*3/uL MPV 9.7 (9.4-12.3) fL Immature Gran % (Auto) 0.5 H (0.0-0.4) % Neut % (Auto) 65.0 (45-73) % Lymph % (Auto) 25.7 (20-40) % [place] % (Auto) 5.5 (2-11) % Eos % (Auto) 2.6 (0-4) % Baso % (Auto) 0.7 (0-2) % Lymph # (Auto) 3.4 (1.2-4.9) X10*3/uL [place] # (Auto) 0.7 (0.1-1.2) X10*3/uL Eos # (Auto) 0.3 (0.0-0.4) X10*3/uL Baso # (Auto) 0.1 (0.0-0.2) X10*3/uL Abs Immat Gran (auto) 0.06 H (0.00-0.03) X10*3/uL Absolute Neuts (auto) 8.7 H (2.0-8.3) x10*3/uL Absolute Nucleated RBC 0.020 H (0.0-0.012) X10*3/uL Nucleated RBC % (auto) 0.2 (0.0-0.2) /100WBC Sodium 138 (135-145) mmol/L Potassium 3.9 (3.3-5.1) mmol/L Chloride 106 (96-108) mmol/L Carbon Dioxide 21 L (22-29) mmol/L Anion Gap 15 (12-20) BUN 12 (9-16) mg/dL Creatinine 0.73 (0.5-1.4) mg/dL Estim Creat Clear Calc 110.3 Estimated GFR > 60 Random Glucose 226 H (60-115) mg/dL Calcium 9.5 (8.4-10.2) mg/dL Total Bilirubin 0.4 (0.0-1.0) mg/dL AST 24 (5-31) U/L ALT 43 H (0-31) U/L Alkaline Phosphatase 96 (39-117) U/L Total Protein 7.8 (6.5-8.0) g/dL Albumin 4.1 (3.5-5.0) g/dL Stool Occult Blood NEGATIVE (NEGATIVE) Blood Type O Positive Antibody Screen NEGATIVE Crossmatch See Detail Independent Interpretation I performed an independent interpretation of an: EKG (My interpretation of EKG: Sinus rhythm heart rate 97, no ST segment depression or elevation, nonspecific T-wave inversion in lead 3, QTC 447) Critical Care Time Critical Care Time Critical Care Time: Yes Total Critical Care Time: 75 Attestation: I have personally provided critical care time. Time includes review of lab data, radiology results, discussion with consultants, and monitoring for potential decompensation. Intervention performed as documented. Discharge Plan Discharge Clinical Impression: Anemia, Bleeding internal hemorrhoids Patient Disposition: Admitted As Inpatient Print Language: [facility] [place]
--- NOTE | 2023-05-14 01:19 | PC.NURSE ---
First unit of PRBC's started and infusing via 20 G IV line in R AC. VSS. Patient tolerating blood transfusion well, no adverse reactions noted.
[2023-05-14 01:35] LABS: OBS Int Ctl Valid YES; OBS1 NEGATIVE (NEGATIVE)
--- NOTE | 2023-05-14 03:19 | PC.NURSE ---
Dr. Funk, hospitalist at bedside.
--- NOTE | 2023-05-14 03:31 | PM.IMHP ---
History of Present Illness Date of Service: 05/14/23 Attending physician on admission: Emili Zee Chief Complaint: Weakness Vern Nieves is a 37 y/o woman with PMH significant for prior gastrointestinal bleeding secondary to internal hemorrhoids, GERD and type 2 diabetes mellitus (not using metformin as she ran out of it) presents to the emergency department complaining of intermittent rectal bleeding (bright red, over the last several months associated with occasional lower abdominal discomfort. For the last several days she has been feeling very weak and dizzy. Denies nausea or vomiting. She denied any headache, palpitations, shortness on breath or chest pain. Denied vaginal bleeding. She has not taking any blood thinners or NSAIDs. She was hospitalized on December of last year with similar symptoms and underwent EGD + colonoscopy. These showed findings consistent with gastritis, polyps and internal hemorrhoids. Denied alcohol abuse, tobacco smoking or illicit drug use. In the ED, she was found to have stable vital signs. Blood workup was remarkable for leukocytosis, 13.3. Hemoglobin is 5.8, hematocrit 22.4 and platelets 473. MCV 61.9. The electrolytes are remarkable. BUN and creatinine are normal. Glucose is 220 an A1c of 8.9. LFT and normal except for a slight elevation of ALT. Urinalysis showed no urinary tract infection. ECG showed normal sinus rhythm without acute ischemic changes. ED tx: NS 3 L bolus. PRBCs 3 units ordered. Review of Systems Constitutional: Constitutional: Reports as per HPI Eyes: Eyes: Reports no additional eye complaints ENT: Reports system reviewed and no additional complaints, except as documented Cardiovascular: Cardiovascular: Reports no additional cardiovascular complaints Respiratory: Respiratory: Reports no additional respiratory complaints Gastrointestinal: Gastrointestinal: Reports as per HPI Genitourinary: Genitourinary: Reports no additional female genitourinary complaints Musculoskeletal: Musculoskeletal: Reports no additional musculoskeletal complaints Integumentary/Breasts: Skin/Breast: Reports system reviewed and no additional complaints, except as docu Neurologic: Reports as per HPI Psychiatric: Psychiatric: Reports no additional psychiatric complaints Endocrine: Endocrine: Reports no additional endocrine complaints Hematologic/Lymphatic: Hematologic/Lymphatic: Reports as per HPI Allergic/Immunologic: Allergic/Immunologic: Reports no additional allergic/immunologic complaints [facility] Medical History (Updated 05/14/23 @ 04:28 by Emili Zee MD) Diabetes mellitus Hx of gastritis Obesity No known health problems Functional capacity: independent ambulation Social History Household Members: Family Household Members Other:: 7 Housing: House Do you presently have visiting nurse or other home services: No Alcohol intake: unknown Patient Tobacco Use Status: Never used Tobacco Smoked in Last 30 Days: No e-Cigarette/Vaping Use: Never Used Second Hand Smoke Exposure: No Use of substances other than those prescribed or required for medical reasons: No Advance Directives: No Advance Directives Information Provided: Yes Patient : No service: No Meds Allergies Allergy/AdvReac Type Severity Reaction Status Date / Time No Known Allergies Allergy Verified 05/13/23 23:31 seasonal Allergy Unknown Unknown Uncoded 05/11/23 16:16 Active Medications: Current Medications Glucose (Glucose Gel 15 Gm Gel..Gram.) 15 gm PO Q15M PRN; Protocol PRN Reason: per Hypoglycemia Standing Ord. Dextrose (D10) 250 mls @ 750 mls/hr IV Q15M PRN; Protocol PRN Reason: per Hypoglycemia Standing Ord. Insulin Human Lispro (Insulin Lispro 100 Unit/Ml 3 Ml Vial) 0 unit SUBCUT Q6H TIM; Protocol Morphine Sulfate (Morphine Sulfate 4 Mg/Ml Cartridge) 2 mg IVPUSH Q4H PRN; Protocol PRN Reason: Pain, Severe (Pain Scale 7-10) Sodium Chloride (0.9 % Sodium Chloride Flush 3 Ml Syringe) 3 ml IVFLUSH QSHIFT TIM Home Medications ?Medication ?Instructions ?Recorded ?Confirmed ?Last Taken ?Type No Known Home Meds 05/14/23 05/14/23 Unknown History Physical Exam Vital Signs and Narrative: Vital Signs: Last Vital Signs Temp 98.1 F 05/14/23 03:20 Pulse 94 05/14/23 03:20 Resp 17 05/14/23 03:20 BP 115/60 05/14/23 03:20 Pulse Ox 100 05/14/23 03:20 O2 Del Method Room Air 05/14/23 03:20 BMI result Body Mass Index 32.2 Const: General: cooperative, no acute distress, alert, awake and Physically active Nutritional Appearance: obese Orientation/consciousness: patient oriented x3 Limitations: no limitations HEENT: Head: Yes normocephalic and Yes atraumatic Eyes: Conjunctivae: other (pale conjuntivae ) Sclerae: sclerae normal Resp: Effort & Inspection: normal respiratory effort and able to speak in complete sentences Auscultation: clear to auscultation bilaterally Cardio: Rate: regular rate Rhythm: regular rhythm Heart sounds: Murmur heart sound present GI: Inspection: Yes normal to inspection, No distended and Yes obesity Palpation (GI): Soft to palpation and no guarding Auscultation: normal bowel sounds Rectal Exam - Female: deferred Skin: General skin exam: other (Pale. No jaundice.) Lesions: no lesions Rashes: no rashes Neuro: General: patient oriented x3 Cognition (Neuro): normal cognition Speech: Other speech findings present (Neuro) (Normal speech) Extrem: General: Yes full ROM Psych: Mental Status: mental status grossly normal Speech and movement: Normal speech and movement present Affect: normal affect Attitude: cooperative Thought process: Normal thought process present Thought content: Normal thought content present Results Labs 05/13/23 23:44 05/13/23 23:44 Labs: Laboratory Results - last 24 hr 05/13/23 05/14/23 23:44 01:31 MCV 61.9 L MCH 16.0 L MCHC 25.9 L RDW 21.2 H Plt Count 473 H MPV 9.7 Immature Gran % (Auto) 0.5 H Neut % (Auto) 65.0 Lymph % (Auto) 25.7 [place] % (Auto) 5.5 Eos % (Auto) 2.6 Baso % (Auto) 0.7 Lymph # (Auto) 3.4 [place] # (Auto) 0.7 Eos # (Auto) 0.3 Baso # (Auto) 0.1 Abs Immat Gran (auto) 0.06 H Absolute Neuts (auto) 8.7 H Absolute Nucleated RBC 0.020 H Nucleated RBC % (auto) 0.2 Anion Gap 15 Estim Creat Clear Calc 110.3 Estimated GFR > 60 Random Glucose 226 H Calcium 9.5 Total Bilirubin 0.4 AST 24 ALT 43 H Alkaline Phosphatase 96 Total Protein 7.8 Albumin 4.1 Stool Occult Blood NEGATIVE Blood Type O Positive Antibody Screen NEGATIVE Crossmatch See Detail Assessment and Plan (1) Acute blood loss anemia: Status: Acute (2) BRBPR (bright red blood per rectum): Status: Acute (3) Anemia: Qualifiers: Anemia type: unspecified type Qualified Code(s): D64.9 - Anemia, unspecified Status: Acute (4) Obesity: Qualifiers: Obesity type: due to excess calories Serious obesity comorbidity presence: with serious comorbidity Body mass index: BMI 32.0-32.9 Obesity classification: adult class 1 (BMI 30 - 34.9) Qualified Code(s): E66.09 - Other obesity due to excess calories; Z68.32 - Body mass index [BMI] 32.0-32.9, adult Status: Acute (5) Bleeding internal hemorrhoids: Status: Acute (6) Diabetes mellitus: Qualifiers: Diabetes mellitus type: type 2 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 Admit to hospitalist service. Keep NPO. Continue PRBC transfusions. Recheck H&H post transfusion (after 2nd unit). Gastroenterology consult. Type 2 diabetes mellitus, uncontrolled (A1c 8.9 %). Pt said she ran out of metformin. Blood glucose checks every 6 hours while NPO. Insulin sliding scale. Elevated ALT. Hepatitis panel is unremarkable. Likely secondary to hepatic steatosis. Pancreatic lesion (body) noted on abdomen and pelvis CT scan done Dec 2022, possible cyst. Outpatient follow-up recommended (6 mo. f/u CT scan or MRI). Obesity, BMI 32.2 kg/m2. Weight loss. History of gastritis (H. pylori + on Jan 2023). Prescribed with amoxicillin, pantoprazole and levaquin. DVT prophylaxis: SCDs Code status: Full Patient will need hospitalization for at least 2 midnights for acute blood loss anemia secondary to gastrointestinal bleeding treatment and evaluation. Patient requires close monitoring of vital signs, PRBC transfusions, close monitoring of H&H and evaluation by subspecialty. Quality Stroke Does the patient have a stroke diagnosis?: No VTE Prior VTE?: No VTE Risk Level:: Medical - moderate - high VTE Device Contraindication: N/A - Device Ordered VTE Drug Contraindication: Treatment Not Indicated
--- NOTE | 2023-05-14 03:32 | PC.NURSE ---
Per Dr. Funk, plan for admission for GI consult, complete blood transfusion with 3 units of PRBC's, draw H&H when transfusions completed.
--- NOTE | 2023-05-14 03:35 | PC.NURSE ---
Patient is alert and oriented x3, VSS. Patient denies any pain at present. Patient ambulates with a steady gait, independent with bed mobility. She is able to make her needs known and uses call leary appropriately. First unit of PRBC's continues to infuse with no adverse reaction noted. Call leary in patient's reach.
--- NOTE | 2023-05-14 05:06 | PC.NURSE ---
First unit of PRBC's infused. Patient ambulated to the restroom with a steady gait, returned to bed. VSS. Call leary in patient's reach.
--- NOTE | 2023-05-14 05:09 | PC.NURSE ---
Second unit of PRBC's started and infusing without issues. VSS, no adverse reactions noted/reported by patient. Call leary in patient's reach. Plan of care ongoing.
--- NOTE | 2023-05-14 07:14 | PC.NURSE ---
0626- new admission to room 377 from ED setting via stretcher. patient a/o x3, greeted and settled into bed, vss. #20 angio at right forearm with unit of PRBC's infusing via pump that was started in ED. Report given to day RN, bed alarm explained and activated for safety. 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 Pt agreeable, denied pain, stated to not feel dizzy at this time. Resting quietly at 0720 with call leary w/i reach.
[2023-05-14 07:37] LABS: Glucose, Whole Blood 187 mg/dL (60-115)
--- NOTE | 2023-05-14 08:52 | MHC.CM.PN ---
PATIENT LIVES WITH HER SPOUSE AND IS FULLY INDEPENDENT. SHE HAS A NEW PCP WITH [facility] IN [place], AND WAS SEEN THERE THIS PAST TUESDAY FOR DIABETIC MEDICATION CONSULT. ON MAY 15, SHE WILL MEET WITH HER NEW PROVIDER, JERMAN FERMIN. NO HCP ON FILE AND PATIENT WILL CONSIDER ASSIGNING ONE DURING HER STAY. [place]AN IS CURRENTLY HOME WITH NO SERVICES EXPECTED AND HER SPOUSE WILL PROVIDE TRANSPORTATION.
--- NOTE | 2023-05-14 09:09 | PHA.MEDREC ---
Pharmacy Consult ? Medication Reconciliation Pharmacy has completed the medication reconciliation.
[2023-05-14 09:36] LABS: Hematocrit 27.5 % (37.0-47.0); Hemoglobin 7.9 g/dl (12.0-16.0); Mean Corpuscular HGB Conc 28.7 g/dl (31.0-35.0); Mean Corpuscular Hemoglobin 18.9 pg (27.0-33.0); Mean Corpuscular Volume 65.8 fL (80.0-98.0); Mean Platelet Volume 9.5 fL (9.4-12.3); NRBC Pct Auto 0.5 /100WBC (0.0-0.2); Platelet Count 393 X10*3/uL (160-400); Red Blood Count 4.18 X10*6/uL (4.20-5.50); Red Cell Distribution Width 24.7 % (11.0-16.0); White Blood Count 11.1 X10*3/uL (4.8-10.8)
[2023-05-14 10:15] LABS: Iron 470 mcg/dL (30-160); Percent Iron Saturation 95 % (15-50); Total Iron Binding Capacity 495 mcg/dL (228-428); Unsaturated Iron Binding < 25 ug/dL
[2023-05-14] MEDS: diphenhydrAMINE HCL 50 MG/ML VIAL 25 MG IVPUSH (10:20)
[2023-05-14] MEDS: 0.9 % Sodium Chloride Flush 3 ML SYRINGE IVFLUSH ×3 (10:27→23:55)
--- NOTE | 2023-05-14 10:35 | P.CNGI_ITS ---
History of Present Illness Data of Consult Service Date: 05/14/23 Requesting physician: Emili Zee Primary Care Provider: Unknown Physician HPI Reason for consult: Anemia This is a 37-year-old female with past medical history of rectal bleeding likely from hemorrhoids leading to chronic anemia, who presented to the hospital again for symptomatic anemia. Patient was admitted in December of last year for similar complaints and underwent EGD and colonoscopy 01/02/2023: Gastritis. Hemorrhoids with bleeding stigmata. Fair prep. Path: No H pylori. Sigmoid polyp tubular adenoma. Patient reports that she did not take any topical steroid treatment or Sitz bath after the diagnosis in December. Continued to have intermittent rectal bleeding. She was seen in urgent care earlier this week again for fatigue and palpitations. Blood work was ordered that demonstrated drop in hemoglobin to 6.2 and she was therefore sent to the emergency room for blood transfusion and further management. She is undergone 2 units blood transfusion overnight and hemoglobin this morning is 7.9. Patient continues to endorse fatigue and palpitations. Does not describe any abdominal discomfort, nausea, vomiting. Stools are brown with blood around it or in the toilet bowl. Has conceived 4 children reports was diagnosed with hemorrhoids after her very 1st child was born almost 14 years ago. Does not lift any heavy weights. 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 Review of Systems 2 Review of Systems: Yes all other systems are reviewed and are negative PMFSH Past Medical History Medical History (Updated 05/14/23 @ 04:28 by Emili Zee MD) Diabetes mellitus Hx of gastritis Obesity No known health problems Social History Social History Household Members: Children Household Members Other:: 7 Housing: Homeless Do you presently have visiting nurse or other home services: No Alcohol intake: unknown Patient Tobacco Use Status: Never used Tobacco e-Cigarette/Vaping Use: Never Used Second Hand Smoke Exposure: No service: No Meds Allergies Allergy/AdvReac Type Severity Reaction Status Date / Time No Known Allergies Allergy Verified 05/13/23 23:31 seasonal Allergy Unknown Unknown Uncoded 05/11/23 16:16 Active Medications: Current Medications Diphenhydramine HCl (Diphenhydramine Hcl 50 Mg/Ml Vial) 25 mg IVPUSH Q4H PRN PRN Reason: Allergic Symptoms Last Admin: 05/14/23 10:20 Dose: 25 mg Fluticasone Propionate (Fluticasone Propionate Nasal 16 Gm [place]) 1 spray NOSTRIL-B BID [facility] Glucose (Glucose Gel 15 Gm Gel..Gram.) 15 gm PO Q15M PRN; Protocol PRN Reason: per Hypoglycemia Standing Ord. Dextrose (D10) 250 mls @ 750 mls/hr IV Q15M PRN; Protocol PRN Reason: per Hypoglycemia Standing Ord. Insulin Human Lispro (Insulin Lispro 100 Unit/Ml 3 Ml Vial) 0 unit SUBCUT Q6H [facility]; Protocol Last Admin: 05/14/23 07:55 Dose: Not Given Morphine Sulfate (Morphine Sulfate 4 Mg/Ml Cartridge) 2 mg IVPUSH Q4H PRN; Protocol PRN Reason: Pain, Severe (Pain Scale 7-10) Sodium Chloride (0.9 % Sodium Chloride Flush 3 Ml Syringe) 3 ml IVFLUSH QSHIFT [facility] Last Admin: 05/14/23 10:27 Dose: 3 ml Home Medications ?Medication ?Instructions ?Recorded ?Confirmed ?Last Taken ?Type ferrous sulfate 325 mg (65 mg 325 mg PO DAILY 05/14/23 05/14/23 Unknown History iron) tablet,delayed release metformin 500 mg tablet 1,000 mg PO BID 05/14/23 05/14/23 05/12/23 History Physical Exam 2 Vital Signs: Vital Signs: Last Vital Signs Temp 97.9 F 05/14/23 08:37 Pulse 90 05/14/23 08:37 Resp 18 05/14/23 08:37 BP 119/64 05/14/23 08:37 Pulse Ox 99 05/14/23 07:22 O2 Del Method Room Air 05/14/23 07:22 BMI result Body Mass Index 32.2 Lethargic, pale appearing With obesity No overt respiratory distress Abdomen soft, nontender, nondistended No pitting edema Results Labs 05/14/23 09:22 05/13/23 23:44 Labs: Short CBC 05/13/23 05/14/23 Range/Units 23:44 09:22 WBC 13.3 H 11.1 H (4.8-10.8) X10*3/uL Hgb 5.8 L* 7.9 L D (12.0-16.0) g/dl Hct 22.4 L 27.5 L D (37.0-47.0) % Plt Count 473 H 393 (160-400) X10*3/uL BMP 05/13/23 23:44 Sodium 138 Potassium 3.9 Chloride 106 Carbon Dioxide 21 L BUN 12 Creatinine 0.73 Calcium 9.5 Liver Function 05/13/23 Range/Units 23:44 Total Bilirubin 0.4 (0.0-1.0) mg/dL AST 24 (5-31) U/L ALT 43 H (0-31) U/L Alkaline Phosphatase 96 (39-117) U/L Albumin 4.1 (3.5-5.0) g/dL Assessment and Plan (1) Bleeding internal hemorrhoids: Status: Acute (2) Acute blood loss anemia: Status: Acute (3) BRBPR (bright red blood per rectum): Status: Acute Plan Presenting with symptomatic anemia from rectal outlet bleeding consistent with bleeding internal hemorrhoids as demonstrated on colonoscopy December 2022. Plan: -start Anusol suppository -encourage sitz baths while admitted -surgery consultation for definitive treatment is this is her 2nd hospitalization for symptomatic anemia from bleeding hemorrhoids. Thank you for allowing me to participate in her care. Please do not hesitate to reach out for any questions or concerns. Procedures Date of Service Date of Service: 05/14/23
--- NOTE | 2023-05-14 10:52 | PM.EVENT ---
Event Note Date of Service: 05/14/23 Event Note: Seen and evaluated repeated Hb after 2 units was 7.9 reported having itching and mild swelling of lip give Benadryl prn To give a 3rd unit pending GI eval start full liquid diet Time Spent With Patient Time: Total time managing care of this patient today ____ minutes.
[2023-05-14 11:34] LABS: Glucose, Whole Blood 163 mg/dL (60-115)
--- NOTE | 2023-05-14 11:54 | P.CONGS_ITS ---
History of Present Illness Consult details Consult date: 05/14/23 Narrative: 37-year-old female referred for bleeding hemorrhoids. She was admitted to the hospital last night because of intermittent passage of bright blood per rectum for several months now. Her hemoglobin was 5.8. She also had some lightheadedness. She was therefore given 2 units of packed RBC Currently she feels well. She has had no significant bleeding since admission She had a colonoscopy and EGD done last December, for the same complaints and she was noted to have gastritis, and hemorrhoids. She denies constipation. Review of Systems 2 Constitutional: Constitutional: Denies chills and Denies fever(s) Cardiovascular: Cardiovascular: Denies chest pain, Denies dyspnea and Reports dyspnea on exertion Respiratory: Respiratory: Denies cough, Denies dyspnea and Reports dyspnea on exertion Gastrointestinal: Gastrointestinal: Denies hematochezia and Denies change in bowel habits Genitourinary: Genitourinary: Denies hematuria Musculoskeletal: Musculoskeletal: Denies back pain and Denies limited range of motion Neurologic: Denies focal weakness and Denies convulsions Psychiatric: Psychiatric: Denies depression and Denies mood swings [facility] Past Medical History Medical History Bleeding hemorrhoids Diabetes mellitus Hx of gastritis Obesity No known health problems Social History Social History Household Members: Children Household Members Other:: 7 Housing: Homeless Do you presently have visiting nurse or other home services: No Alcohol intake: unknown Patient Tobacco Use Status: Never used Tobacco e-Cigarette/Vaping Use: Never Used Second Hand Smoke Exposure: No service: No Current occupational status: employed Current occupation: [employer] Allergies Allergy/AdvReac Type Severity Reaction Status Date / Time No Known Allergies Allergy Verified 05/16/23 11:18 seasonal Allergy Unknown Unknown Uncoded 05/16/23 11:18 Active Medications: Current Medications Diphenhydramine HCl (Diphenhydramine Hcl 50 Mg/Ml Vial) 25 mg IVPUSH Q4H PRN PRN Reason: Allergic Symptoms Last Admin: 05/14/23 10:20 Dose: 25 mg Fluticasone Propionate (Fluticasone Propionate Nasal 16 Gm [place]) 1 spray NOSTRIL-B BID TIM Glucose (Glucose Gel 15 Gm Gel..Gram.) 15 gm PO Q15M PRN; Protocol PRN Reason: per Hypoglycemia Standing Ord. Dextrose (D10) 250 mls @ 750 mls/hr IV Q15M PRN; Protocol PRN Reason: per Hypoglycemia Standing Ord. Insulin Human Lispro (Insulin Lispro 100 Unit/Ml 3 Ml Vial) 0 unit SUBCUT Q6H [facility]; Protocol Last Admin: 05/14/23 07:55 Dose: Not Given Morphine Sulfate (Morphine Sulfate 4 Mg/Ml Cartridge) 2 mg IVPUSH Q4H PRN; Protocol PRN Reason: Pain, Severe (Pain Scale 7-10) Sodium Chloride (0.9 % Sodium Chloride Flush 3 Ml Syringe) 3 ml IVFLUSH QSHIFT [facility] Last Admin: 05/14/23 10:27 Dose: 3 ml Home Medications ?Medication ?Instructions ?Recorded ?Confirmed ?Last Taken ?Type ferrous sulfate 325 mg (65 mg 325 mg PO DAILY 05/14/23 05/16/23 Unknown History iron) tablet,delayed release metformin 500 mg tablet 1,000 mg PO BID 05/14/23 05/16/23 05/12/23 History Physical Exam 2 Vital Signs: Vital Signs: Last Vital Signs Temp 97.9 F 05/14/23 08:37 Pulse 90 05/14/23 08:37 Resp 18 05/14/23 08:37 BP 119/64 05/14/23 08:37 Pulse Ox 99 05/14/23 07:22 O2 Del Method Room Air 05/14/23 07:22 BMI result Body Mass Index 32.2 Const: General: comfortable and no acute distress O rientation/consciousness: patient oriented x3 Neck: Neck: Yes no lymphadenopathy Resp: Auscultation: clear to auscultation bilaterally Cardio: Rhythm: regular rhythm GI: Other: Rectal exam shows large external hemorrhoids with prolapsing internal hemorrhoids, not bleeding, not thrombosed, not tender Palpation (GI): Soft to palpation, nontender and no guarding Neuro: General: patient oriented x3 Results Labs 05/15/23 05:40 05/15/23 05:40 Labs: Abnormal lab results 05/13/23 05/14/23 05/14/23 Range/Units 23:44 07:32 09:22 WBC 13.3 H 11.1 H (4.8-10.8) X10*3/uL RBC 3.62 L 4.18 L (4.20-5.50) X10*6/uL Hgb 5.8 L* 7.9 L D (12.0-16.0) g/dl Hct 22.4 L 27.5 L D (37.0-47.0) % MCV 61.9 L 65.8 L (80.0-98.0) fL MCH 16.0 L 18.9 L (27.0-33.0) pg MCHC 25.9 L 28.7 L (31.0-35.0) g/dl RDW 21.2 H 24.7 H (11.0-16.0) % Plt Count 473 H (160-400) X10*3/uL Immature Gran % (Auto) 0.5 H (0.0-0.4) % Abs Immat Gran (auto) 0.06 H (0.00-0.03) X10*3/uL Absolute Neuts (auto) 8.7 H (2.0-8.3) x10*3/uL Absolute Nucleated RBC 0.020 H 0.060 H (0.0-0.012) X10*3/uL Nucleated RBC % (auto) 0.5 H (0.0-0.2) /100WBC Carbon Dioxide 21 L (22-29) mmol/L POC Glucose 187 H (60-115) mg/dL Random Glucose 226 H (60-115) mg/dL Iron 470 H (30-160) mcg/dL TIBC 495 H (228-428) mcg/dL % Saturation 95 H (15-50) % ALT 43 H (0-31) U/L Crossmatch See Detail 05/14/23 Range/Units 11:27 WBC (4.8-10.8) X10*3/uL RBC (4.20-5.50) X10*6/uL Hgb (12.0-16.0) g/dl Hct (37.0-47.0) % MCV (80.0-98.0) fL MCH (27.0-33.0) pg MCHC (31.0-35.0) g/dl RDW (11.0-16.0) % Plt Count (160-400) X10*3/uL Immature Gran % (Auto) (0.0-0.4) % Abs Immat Gran (auto) (0.00-0.03) X10*3/uL Absolute Neuts (auto) (2.0-8.3) x10*3/uL Absolute Nucleated RBC (0.0-0.012) X10*3/uL Nucleated RBC % (auto) (0.0-0.2) /100WBC Carbon Dioxide (22-29) mmol/L POC Glucose 163 H (60-115) mg/dL Random Glucose (60-115) mg/dL Iron (30-160) mcg/dL TIBC (228-428) mcg/dL % Saturation (15-50) % ALT (0-31) U/L Crossmatch Short CBC 05/13/23 05/14/23 Range/Units 23:44 09:22 WBC 13.3 H 11.1 H (4.8-10.8) X10*3/uL Hgb 5.8 L* 7.9 L D (12.0-16.0) g/dl Hct 22.4 L 27.5 L D (37.0-47.0) % Plt Count 473 H 393 (160-400) X10*3/uL BMP 05/13/23 23:44 Sodium 138 Potassium 3.9 Chloride 106 Carbon Dioxide 21 L BUN 12 Creatinine 0.73 Calcium 9.5 Liver Function 05/13/23 Range/Units 23:44 Total Bilirubin 0.4 (0.0-1.0) mg/dL AST 24 (5-31) U/L ALT 43 H (0-31) U/L Alkaline Phosphatase 96 (39-117) U/L Albumin 4.1 (3.5-5.0) g/dL All other labs normal. Assessment and Plan (1) Bleeding hemorrhoids: Status: Acute She has had known bleeding hemorrhoids for several months. She was anemic coming in and no other bleeding source was identified Examination shows large internal external hemorrhoids. These are currently nonbleeding. Her low hemoglobin is likely from chronic interpreted blood loss I have talked to her about seeing me as an outpatient so we can proceed with a hemorrhoidectomy. She comfortable with this at this time. She looks well overall and appears hemodynamically stable. Procedures Date of Service Date of Service: 05/17/23
[2023-05-14] MEDS: Fluticasone Propionate Nasal 16 GM SPRAY 1 SPRAY NOSTRIL-B (12:47)
[2023-05-14] MEDS: Hydrocortisone 2.5 % Rectal Cr 30 GM TUBE 1 APPL PR (14:42)
--- NOTE | 2023-05-14 15:17 | PC.NURSE ---
H&H post transfusion of 2 units - 7.9/27.5. GI saw patient and recommending Iron infusion. Dr. Sy canceled 3rd unit RBC. After transfusion patient developed itching and hives to left eyelid, right mormonism, left lower back and right upper abdomen. Also with puffiness to left upper lip and around eyes, sinus congestion and runny nose. Dr. Sy ordered benadryl and flonase. Patient's symptoms much improved after administration of both medications.
[2023-05-14] MEDS: Iron Sucrose Complex 200 MG in 0.9 % Sodium Chloride 100 ML 440 MG IV (15:49)
[2023-05-14 16:24] LABS: Glucose, Whole Blood 162 mg/dL (60-115)
[2023-05-14] MEDS: Insulin Lispro 100 UNIT/ML 3 ML VIAL SUBCUT ×2 (16:48→21:41)
[2023-05-14 21:21] LABS: Glucose, Whole Blood 189 mg/dL (60-115)
[2023-05-15 03:41] VITALS: BP 128/60; PULSE 73; RESP 16; TEMP 36.6; O2SAT 96
[2023-05-15 06:11] LABS: Hematocrit 29.4 % (37.0-47.0); Mean Corpuscular HGB Conc 27.2 g/dl (31.0-35.0); Mean Corpuscular Hemoglobin 18.1 pg (27.0-33.0); Mean Corpuscular Volume 66.7 fL (80.0-98.0); Mean Platelet Volume 9.8 fL (9.4-12.3); NRBC Pct Auto 0.8 /100WBC (0.0-0.2); Platelet Count 454 X10*3/uL (160-400); Red Blood Count 4.41 X10*6/uL (4.20-5.50); Red Cell Distribution Width 24.4 % (11.0-16.0); White Blood Count 9.9 X10*3/uL (4.8-10.8)
[2023-05-15 07:42] VITALS: BP 126/60; PULSE 83; RESP 16; TEMP 36.1; O2SAT 97
[2023-05-15 07:47] LABS: Glucose, Whole Blood 178 mg/dL (60-115)
[2023-05-15] MEDS: Insulin Lispro 100 UNIT/ML 3 ML VIAL SUBCUT (08:54)
[2023-05-15] MEDS: 0.9 % Sodium Chloride Flush 3 ML SYRINGE IVFLUSH (08:56)
[2023-05-15] MEDS: Iron Sucrose Complex 200 MG in 0.9 % Sodium Chloride 100 ML 440 MG IV (10:21)
[2023-05-15 11:13] LABS: Anion Gap 13 (12-20); Blood Urea Nitrogen 7 mg/dL (9-16); Calcium 9.5 mg/dL (8.4-10.2); Carbon Dioxide 23 mmol/L (22-29); Chloride 107 mmol/L (96-108); Creatinine Clr Calc Pharmacy 118.4; Estimated Glomerular Filt Rate > 60; Glucose Random 162 mg/dL (60-115); Potassium 3.8 mmol/L (3.3-5.1); Sodium 139 mmol/L (135-145)
--- NOTE | 2023-05-15 11:17 | PM.DS ---
DS: Providers Provider Date of Service: 05/15/23 Date of admission: 05/14/23 03:23 Primary care physician: Unknown Physician Consults: 05/14/23 03:26 Consult to Gastroenterology Routine Consulting Provider: Kathy Shea Reason for consultation: Hx of internal hemorrhoids, acute blood loss anemia, GI bleeding DS: Diagnosis Discharge Diagnosis (1) Bleeding hemorrhoids: Status: Acute (2) Acute blood loss anemia: Status: Acute (3) Symptomatic anemia: Status: Acute DS: Summary Hospital Course Hospital Course: Admission note Vern Nieves is a 37 y/o woman with PMH significant for prior gastrointestinal bleeding secondary to internal hemorrhoids, GERD and type 2 diabetes mellitus (not using metformin as she ran out of it) presents to the emergency department complaining of intermittent rectal bleeding (bright red, over the last several months associated with occasional lower abdominal discomfort. For the last several days she has been feeling very weak and dizzy. Denies nausea or vomiting. She denied any headache, palpitations, shortness on breath or chest pain. Denied vaginal bleeding. She has not taking any blood thinners or NSAIDs. She was hospitalized on December of last year with similar symptoms and underwent EGD + colonoscopy. These showed findings consistent with gastritis, polyps and internal hemorrhoids. Denied alcohol abuse, tobacco smoking or illicit drug use. In the ED, she was found to have stable vital signs. Blood workup was remarkable for leukocytosis, 13.3. Hemoglobin is 5.8, hematocrit 22.4 and platelets 473. MCV 61.9. The electrolytes are remarkable. BUN and creatinine are normal. Glucose is 220 an A1c of 8.9. LFT and normal except for a slight elevation of ALT. Urinalysis showed no urinary tract infection. ECG showed normal sinus rhythm without acute ischemic changes. ED tx: NS 3 L bolus. PRBCs 3 units ordered. Hospital course The patient was admitted for acute blood loss symptomatic anemia secondary to internal hemorrhoid bleeding requiring blood transfusion of 2 units with fair response as repeat Hb >8. Started on Hydrocortisone cream and Sitz bath with good response over the hospital stay as she was evaluated by surgery and GI. She will follow with dr Ty as outpatient for surgical intervention. To continue Iron supplement on discharge. The patient had quicker than anticipated improvement and doesnt need 2 overnight stay inpatient. Discharge Plan Use Suppository and cream 2-4 times daily avoid constipation drink plenty of fluids Take Iron pills Follow with dr Ty as outpatient Time Attestation Discharge Coordination Time (in mins): 38 Quality: Safe Use of Opioids Does Pt have an Active Cancer Diagnosis on the Problem List?: No Quality: Stroke Does the patient have a stroke diagnosis?: No Physical Exam Vital Signs: Vital Signs: Last Vital Signs Temp 96.9 F 05/15/23 07:42 Pulse 83 05/15/23 07:42 Resp 16 05/15/23 07:42 BP 126/60 05/15/23 07:42 Pulse Ox 97 05/15/23 07:42 O2 Del Method Room Air 05/15/23 07:42 BMI result Body Mass Index 32.2 Const: Other: Constitutional : Awake, interactive, not in distress Neck : Normal inspection, Supple Cardiovascular : RRR, no JVP, no lower extremity edema Respiratory : good bilateral air entry, no crackles, wheezes or rhonchi Gastrointestinal: soft, lax, Normal bowel sounds, Non tender Skin : Warm, Dry Neurological : Alert & oriented x3, No focal deficit DS: Data Data Completed and Pending Completed studies during hospitalization [Text1]: Procedures Excision of Duodenum, Via Natural or Artificial Opening Endoscopic, Diagnostic (12/31/22) Excision of Sigmoid Colon, Via Natural or Artificial Opening Endoscopic, Diagnostic (12/31/22) Excision of Stomach, Pylorus, Via Natural or Artificial Opening Endoscopic, Diagnostic (12/31/22) Labs on day of discharge: Laboratory Results - last 24 hr 05/13/23 05/14/23 05/14/23 23:44 11:27 16:19 WBC RBC Hgb Hct MCV MCH MCHC RDW Plt Count MPV Absolute Nucleated RBC Nucleated RBC % (auto) Sodium Potassium Chloride Carbon Dioxide Anion Gap BUN Creatinine Estim Creat Clear Calc Estimated GFR POC Glucose 163 H 162 H Random Glucose Calcium Crossmatch See Detail 05/14/23 05/15/23 05/15/23 21:18 05:40 07:40 WBC 9.9 RBC 4.41 Hgb 8.0 L Hct 29.4 L MCV 66.7 L MCH 18.1 L MCHC 27.2 L RDW 24.4 H Plt Count 454 H MPV 9.8 Absolute Nucleated RBC 0.080 H Nucleated RBC % (auto) 0.8 H Sodium 139 Potassium 3.8 Chloride 107 Carbon Dioxide 23 Anion Gap 13 BUN 7 L Creatinine 0.68 Estim Creat Clear Calc 118.4 Estimated GFR > 60 POC Glucose 189 H 178 H Random Glucose 162 H Calcium 9.5 Crossmatch Discharge Plan Discharge Anticipated Discharge Date/Time: 05/15/23 11:12 Patient Disposition: Home, Self-Care Discharge Diagnosis: Bleeding hemorrhoid's symptomatic anemia Referrals: Physician,Unknown J [Primary Care Provider] - 1 Week Discharge Medications: New hydrocortisone [Proctozone-HC] 2.5 % Cream With Perineal Applicator 1 appl [place] BID Qty: 30 2RF (DME) sitz bath Kit See Rx Instructions .Route Qty: 1 0RF Rx Instructions: As directed hydrocortisone acetate [Anusol-HC] 25 mg suppository 25 mg [place] BID 14 Days Qty: 24 0RF Continued metformin 500 mg tablet 1,000 mg PO BID ferrous sulfate 325 mg (65 mg iron) Tablet,Delayed Release (Dr/Ec) 325 mg PO DAILY Discharge Orders: Discharge Order (Routine); Ordered 05/15/23 Ordered By: Julissa Sy Diet: Advance to usual diet Activity on Discharge: As tolerated Stand Alone Forms: Patient Portal Discharge page Print Language: Mandarin Croatian Care Plan Goals: Read below Health Concerns: Read below Plan of Treatment: Read below Assessment: Use Suppository and cream 2-4 times daily avoid constipation drink plenty of fluids Take Iron pills Follow with dr Ty as outpatient Patient Instructions: Hemorrhoids (DC), Sitz Bath (DC)
[2023-05-15 11:25] LABS: Glucose, Whole Blood 193 mg/dL (60-115)
--- NOTE | 2023-05-15 11:43 | MHC.CM.PN ---
pt home self care
== END 2023-05-15 12:04 | disposition home or self-care (01) | DRG 663 ==
LOC: HO.ED 05-14 01:11 → HO.EDOVER 05-14 03:34 → HO.S3 05-14 05:55
PROVIDERS: Admitting Provider Internal Medicine; Emergency Provider Emergency Medicine; PCP Nurse Practitioner Primary Care; Visit Provider Student in an Organized Health Care Education/Training Program
DX: D62 Acute posthemorrhagic anemia (principal); K86.2 Cyst of pancreas; K64.4 Residual hemorrhoidal skin tags; K64.8 Other hemorrhoids; E66.09 Other obesity due to excess calories; Z68.32 Body mass index [BMI] 32.0-32.9, adult; Z91.148 Patient's other noncompliance with medication regimen for other reason; Z79.899 Other long term (current) drug therapy
CPT/HCPCS: 36415; 80048; 80053; 82272; 82947; 83540; 85025; 85027; 86850; 86900; 86901; 86923; 93005; 99221; 99285; J1200; J1756; P9016

== ENCOUNTER → 2023-05-13 23:45 | Outpatient (BNV) | payer OTHER, SELFPAY | PROVIDERS: Admitting Provider Internal Medicine; Emergency Provider Emergency Medicine; Visit Provider Internal Medicine Cardiovascular Disease | DX: R94.31 Abnormal electrocardiogram [ECG] [EKG] (principal); R42 Dizziness and giddiness | CPT/HCPCS: 93010 ==

== ENCOUNTER → 2023-05-14 03:23 | Outpatient (BNV) | payer OTHER, SELFPAY | PROVIDERS: Admitting Provider Internal Medicine; Emergency Provider Emergency Medicine; Visit Provider Internal Medicine | DX: K64.8 Other hemorrhoids (principal); D62 Acute posthemorrhagic anemia; K62.5 Hemorrhage of anus and rectum | CPT/HCPCS: 99222 ==

== ENCOUNTER → 2023-05-14 03:23 | Outpatient (BNV) | payer OTHER, SELFPAY | PROVIDERS: Admitting Provider Internal Medicine; Emergency Provider Emergency Medicine; PCP Nurse Practitioner Primary Care; Visit Provider Surgery | DX: K64.9 Unspecified hemorrhoids (principal) | CPT/HCPCS: 99222 ==

== ENCOUNTER → 2023-05-14 03:23 | Outpatient (BNV) | payer OTHER, SELFPAY | PROVIDERS: Admitting Provider Internal Medicine; Emergency Provider Emergency Medicine; Visit Provider Internal Medicine | DX: D62 Acute posthemorrhagic anemia (principal); K62.5 Hemorrhage of anus and rectum; E66.09 Other obesity due to excess calories; Z68.32 Body mass index [BMI] 32.0-32.9, adult; K64.8 Other hemorrhoids; E11.9 Type 2 diabetes mellitus without complications; Z87.19 Personal history of other diseases of the digestive system; R74.01 Elevation of levels of liver transaminase levels; K64.9 Unspecified hemorrhoids | CPT/HCPCS: 99223; 99239; 99499 ==

== ENCOUNTER 2023-05-16 10:19 | Outpatient (AMB) | payer OTHER, SELFPAY ==
--- NOTE | 2023-05-16 10:23 | A.OFFPC_ITS ---
Vital Signs 05/16/23 10:25 Height 5 ft 4 in Weight 186 lb 8 oz BMI 32.0 BP 102/68 Blood Pressure Location Lt brachial Position Sitting Pulse 87 Pulse Source Pulse Oximeter Pulse Oximetry (%) 98 Oxygen Delivery Method Room Air Intake Visit Reasons: est care diabetic with anemia ok per Dr Slaughter Intake Note: Pt is here to [facility] care she was just seen at [facility] and had A1c done 05/12/23 Allergies No Known Allergies Allergy (Verified 05/16/23 11:18) seasonal Allergy (Unknown, Uncoded 05/16/23 11:18) Unknown Medication List - Last Reconciled 05/16/23 by CAROL Patel ferrous sulfate 325 mg PO DAILY hydrocortisone 2.5% (Proctozone-HC) 1 appl NE BID hydrocortisone acetate (Anusol-HC) 25 mg NE BID 2 weeks metformin 1,000 mg PO BID sitz bath As directed Tobacco use date assessed: 05/16/23 Dental Screening Dental Screen Date: 05/16/23 Did you have a dental visit in the last 12 months?: Yes Did you have a dental problem in the last 6 months where you did not have access to dental care?: No Was dental information given to patient?: Patient has dentist HPI HPI Comments History of Present Illness Details Patient is a 37-year-old female who I am meeting for the 1st time. Patient was discharged from the hospital 1 day prior due to anemia. Patient presented to the emergency room, was found to have hemoglobin levels of 5.8. Patient was admitted to the hospital given to blood transfusion, while there was also found to be type 2 diabetic, with an A1c of 8.9. Patient was discharged with ferrous fumarate 325, metformin 500 mg b.i.d., and hydrocortisone acetate Anusol 25 mg. Patient has been instructed to drink plenty of fluids, take iron pills, and to follow up with General surgery. Patient states she originally presented to the emergency room due to dizziness and leg cramping. Patient states though symptoms have improved since discharge. Patient has been instructed that she should continue to change positions slowly. She should continue to take medication as directed. Will set referral for General surgery. [facility] Medical History Bleeding hemorrhoids Diabetes mellitus Hx of gastritis Obesity No known health problems Social History Household Members: Children Household Members Other:: 7 Housing: Homeless Do you presently have visiting nurse or other home services: No Alcohol intake: unknown Patient Tobacco Use Status: Never used Tobacco e-Cigarette/Vaping Use: Never Used Second Hand Smoke Exposure: No service: No Current occupational status: employed Current occupation: [employer] Questionnaire PHQ-9 Over the last 2 weeks, how often have you been bothered by any of the following problems? 1. Little interest or pleasure in doing things: not at all 2. Feeling down, depressed, or hopeless: not at all 3. Trouble falling or staying asleep, or sleeping too much: not at all 4. Feeling tired or having little energy: not at all 5. Poor appetite or overeating: not at all 6. Feeling bad about yourself - or that you are a failure or have let yourself or your family down: not at all 7. Trouble concentrating on things, such as reading the newspaper or watching television: not at all 8. Moving or speaking so slowly that other people could have noticed. Or the opposite - being so fidgety or restless that you have been moving around a lot more than usual: not at all 9. Thoughts that you would be better off or of hurting yourself in some way: not at all Total score: 0 Depression Screening Interpretation: Negative Depression Screening Done: Yes 44584 - PHQ-9 Billing: Yes Source: Developed by Drs. Micah Romo, Aruna Romano, Omari De Jesus and colleagues, with an educational bruce from [employer]. Thrive Questionnaire Date Thrive assessed: 05/16/23 I am a: Patient What is your living situation today?: I have a steady place to live Within the past 12 months, did the food you bought not last and you didn't have the money to get more?: Never true Within the past 12 months, did you worry whether your food would run out before you got money to buy more?: Never true Do you have trouble paying for medicines?: No Do you have trouble getting transportation to medical appointments?: No Do you have trouble paying your heating and electricity bill?: No Do you have trouble taking care of your child, family member or friend?: No Do you have trouble with day-to-day activities such as bathing, preparing meals, shopping, managing finances, etc.?: No Are you currently unemployed and looking for a job?: No Are you interested in more education?: Yes THRIVE Score: 0 AUDIT C Alcohol Use Questionnaire (AUDIT-C) 1. How often do you have a drink containing alcohol?: Monthly or less 2. How many drinks containing alcohol do you have on a typical day when you are drinking?: 1 or 2 3. How often do you have six or more drinks on one occasion?: Never Total Score: 1 DANO-7 AMB Questionnaire DANO-7 Date DANO - 7 assessed: 05/16/23 Feeling nervous, anxious, or on edge: 0 = Not at all Not being able to stop or control worryin = Not at all Worrying too much about different things: 0 = Not at all Trouble relaxin = Not at all Being so restless that it is hard to sit still: 0 = Not at all Becoming easily annoyed or irritable: 0 = Not at all Feeling afraid as if something awful might happen: 0 = Not at all Total DANO-7 score (0-4 normal; 5-9 mild; 10-14 moderate; 15-21 severe): 0 Source: Developed by Drs. Micah Romo, Aruna Romano, Omari De Jesus and colleagues, with an educational bruce from [employer]. DANO-7 Assessment Billing DANO-7 Assessment Tool: DANO-7 Assessment 13284 Review of Systems Const Details: Constitutional : No Weight loss, No Fever, No Chills, No Fatigue, No Malaise ENT/Mouth : No sore throat, No Rhinorrhea Eyes: No Eye Pain, No Swelling, No Redness Cardiovascular : No Chest Pain, No SOB, No Dyspnea on Exertion, No Orthopnea, No Edema, No Palpitations Respiratory : No Cough, No Sputum, No Wheezing Gastrointestinal : No Nausea, No Vomiting, No Diarrhea, No Constipation, No abdominal Pain, No Hematochezia, No Melena Genitourinary : No Dysuria, No Urinary Frequency, No Hematuria, Musculoskeletal : No joint pain, No Myalgias, No Joint Swelling Skin : No Skin Lesions, No rash Neuro : No Weakness, No Numbness, Admits occasional Dizziness after standing, No Headache Psych : No Anxiety/Panic, No Depression Heme/Lymph: No Bruising, No Bleeding,No Lymphadenopathy Endocrine : No Polyuria, No Polydipsia All other systems reviewed and are negative Physical exam (Primary Care) Vital Signs: Last Vital Signs Pulse 87 05/16/23 10:25 BP 102/68 05/16/23 10:25 Pulse Ox 98 05/16/23 10:25 Oxygen Delivery Method Room Air 05/16/23 10:25 Care Plan Goal for BP management: Vital signs reviewed stable. BMI result Body Mass Index 32.0 Tobacco/Smoking Status: Tobacco use Status Tobacco use date assessed 05/16/23 05/16/23 10:34 Patient Tobacco Use Status Never used Tobacco 05/16/23 10:23 e-Cigarette/Vaping Use Never Used 05/16/23 10:23 PHQ-9: PHQ-9 Score PHQ-9: Total score 0 05/16/23 11:43 Depression Screening Interpretation: Negative Thrive Assessment: Date of Thrive Assessment Date Thrive assessed 05/16/23 05/16/23 10:34 Const Other: Appearance: Alert.? Oriented X3.? No acute distress.? Head: Normocephalic, atraumatic, no step-offs or deformities Eyes: Pupils equal, round and reactive to light.? CVS: Normal heart rate and rhythm.? Pulses normal.? Respiratory: No respiratory distress.? Breath sounds normal.? Abdomen: Soft and nontender.? Skin: Skin warm and dry.? Normal skin color.? Normal skin turgor.? Neuro: Oriented X 3.? No motor deficit.? No sensory deficit. CN 2-12 intact Results Reviewed Results Reviewed: WBC 9.9 4.8-10.8 X10*3/uL RBC 4.41 4.20-5.50 X10*6/uL HGB 8.0 L 12.0-16.0 g/dl HCT 29.4 L 37.0-47.0 % MCV 66.7 L 80.0-98.0 fL MCH 18.1 L 27.0-33.0 pg MCHC 27.2 L 31.0-35.0 g/dl RDW 24.4 H 11.0-16.0 % PLT 454 H 160-400 X10*3/uL MPV 9.8 9.4-12.3 fL NRBC Pct Auto 0.8 H 0.0-0.2 /100WBC NRBC Abs Auto 0.080 H 0.0-0.012 X10*3/uL Assessment and Plan Assessment & Plan (1) Diabetes type 2, no ocular involvement: Comment: Patient is new diagnosed type 2 diabetic. Patient should continue taking met formin 500 mg b.i.d.. Patient will have appointment with community nurse navigator for diabetic Education. Patient will be prescribed glucometer. Instructed to take and record blood sugar at least twice per day Code(s): E11.9 - Type 2 diabetes mellitus without complications (2) Anemia: Comment: Patient was discharged from hospital 1 day prior with hemoglobin level of 8.0. Patient has been instructed to continue taking ferrous fumarate 325 mg daily. Patient has been educated on signs of worsening symptoms and when to return to the office or when to present to the ED. patient will also get referral to General surgery. Code(s): D64.9 - Anemia, unspecified Qualifiers: Anemia type: unspecified type Qualified Code(s): D64.9 - Anemia, unspe cified Plan Follow-up in 1 month Orders: Orders Comprehensive Met. Panel 1 Month E11.9 - Type 2 diabetes mellitus without complications Complete Blood Count Auto Diff 1 Month Z13.0 - Encounter for screening for diseases of the blood and blood-forming organs and certain disorders involving the immune mechanism Referrals General Surgery Referral K64.9 - Unspecified hemorrhoids Medications: New blood-glucose meter (OneTouch Ultra2 Meter) As directed 1 ea 0RF Check blood sugar blood sugar diagnostic (OneTouch Ultra Test strips) As directed 100 ea 0RF lancets (Onetouch Delica Safety Lancet) As directed 200 ea 0RF Refilled hydrocortisone acetate (Anusol-HC) 25 mg NE BID 2 weeks 24 ea 0RF Coding Level of Care Code Est Pt Level 4 (52454) Diagnoses Diabetes type 2, no ocular involvement E11.9 Anemia, unspecified type D64.9 Anemia type: unspecified type Additional Codes DANO-7 Assessment Billing - DANO-7 Assessment Tool: DANO-7 Assessment 53417 ([id number]) Time Spent (min) 45
[2023-05-16 10:25] VITALS: BP 102/68; PULSE 87; O2SAT 98; BMI 32.0
== END 2023-05-16 16:06 | disposition home or self-care (01) ==
PROVIDERS: PCP Internal Medicine; Visit Provider Nurse Practitioner Primary Care
DX: E11.9 Type 2 diabetes mellitus without complications (principal); D64.9 Anemia, unspecified
CPT/HCPCS: 99214

== ENCOUNTER 2023-06-08 08:48 | Outpatient (AMB) | payer OTHER, SELFPAY ==
--- NOTE | 2023-06-08 08:54 | MHC.OFFVIS ---
Vital Signs 06/08/23 08:57 Height 5 ft 4 in Weight 186 lb BMI 31.9 Intake Visit Reasons: Hemorrhoids Intake Note: This patient presents for an assessment for hemorrhoids. Pt c/o; reports no rectal pain, reports had rectal bleeding for 4-5 days, reports no constipation. 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 (Summer) Accompanied by: Self / Same As Patient Allergies No Known Allergies Allergy (Verified 06/08/23 09:10) seasonal Allergy (Unknown, Uncoded 06/08/23 09:10) Unknown Medication List - Last Reconciled 06/08/23 by Sukhjinder Ty MD blood-glucose meter (FreeStyle Lite Meter kit) As directed ferrous sulfate 325 mg PO DAILY FreeStyle Lite Strips (blood sugar diagnostic) Test blood sugar twice a day NS hydrocortisone 2.5% (Proctozone-HC) 1 appl IL BID hydrocortisone acetate (Anusol-HC) 25 mg IL BID 2 weeks lancets (FreeStyle Lancets) Test blood sugar twice a day metformin 1,000 mg PO BID sitz bath As directed HPI HPI Hemorrhoids: Details: 37F referred for hemorrhoids. She she knows she has had hemorrhoids for over 5 years now. She says she feels this lumps outside her anus which has been there for many years She started to have significant bleeding the past 2 years. Sometimes these can be very heavy with bowel movements. She would see large amounts of bright blood on the toilet bowl. This has been heavier the past 6 months. She had undergone colonoscopy which showed small polyps but other than that, there was no other etiology for the bleeding. She had been transfused because of hemoglobin of 5 last month. She has had significant discomfort and difficulty with hygiene as well. She therefore wants to proceed with hemorrhoidectomy. [facility] Medical History (Updated 06/08/23 @ 09:15 by Sukhjinder Ty MD) Bleeding hemorrhoids Anemia Diabetes mellitus Hx of gastritis Obesity No known health problems Surgical History (Updated 06/08/23 @ 08:58 by BEHZAD Prater) History of colonoscopy (~12/2022) Social History Household Members: Children Household Members Other:: 7 Housing: Homeless Do you presently have visiting nurse or other home services: No Alcohol intake: unknown Patient Tobacco Use Status: Never used Tobacco e-Cigarette/Vaping Use: Never Used Second Hand Smoke Exposure: No service: No Current occupational status: employed Current occupation: [employer] Review [employer] Systems Const Denies chills and Denies fever(s) Card Denies chest pain, Denies dyspnea and Denies dyspnea on exertion Resp Denies cough, Denies dyspnea and Denies dyspnea on exertion GI Reports hematochezia and Denies change in bowel habits Denies hematuria Musc Denies back pain and Denies limited range of motion Neuro Denies focal weakness and Denies convulsions Psych Denies depression and Denies mood swings Physical Exam Vital Signs: BMI result Body Mass Index 31.9 Const General: comfortable and no acute distress Orientation/consciousness: patient oriented x3 Neck Neck: Yes no lymphadenopathy Resp Auscultation: clear to auscultation bilaterally Cardio Rhythm: regular rhythm GI Other: Rectal exam shows large hemorrhoidal columns, anteriorly and posteriorly, mix of internal external Palpation (GI): Soft to palpation, nontender and no guarding Neuro General: patient oriented x3 Office Procedures Anoscopy She was in radha-knife position. The anoscope was gently inserted. A full examination of the anal canal was done. She had large hemorrhoidal columns, mix of internal external, anteriorly and posteriorly, with prolapse of internal component. There were no other lesions, no active bleeding, no fissures or ulceration. There was no induration on digital exam. She had good sphincter tone [id number] Assessment & Plan Assessment & Plan (1) Bleeding hemorrhoids: Code(s): K64.9 - Unspecified hemorrhoids Category: Medical Plan: She has very large hemorrhoids, internal external with prolapse and significant bleeding. She had required transfusion last month She had colonoscopy workup already which did not reveal any other significant etiology In view of the anemia with significant bleeding every day from her hemorrhoids, she wants to proceed with hemorrhoidectomy. I had a long discussion with her about the technique of exam under anesthesia and hemorrhoidectomy. I reviewed the risks including but not limited to bleeding, infections, poor healing, postop pain, as well as the benefits and alternatives. I explained to her what to expect postoperatively She has given consent. Coding Level of Care Code Est Pt Level 3 (00210) Diagnoses Bleeding hemorrhoids K64.9 CPT Codes Details - CPT: 14071-Affjftjn ([id number])
[2023-06-08 08:57] VITALS: BMI 31.9
== END 2023-06-08 09:15 | disposition home or self-care (01) ==
PROVIDERS: PCP Nurse Practitioner Primary Care; Referring Provider Nurse Practitioner Primary Care; Visit Provider Surgery
DX: K64.9 Unspecified hemorrhoids (principal)
CPT/HCPCS: 46600; 99213

== ENCOUNTER → 2023-06-08 08:48 | Outpatient (BNVA) | payer OTHER, SELFPAY | PROVIDERS: PCP Nurse Practitioner Primary Care; Referring Provider Nurse Practitioner Primary Care; Visit Provider Surgery | DX: K64.9 Unspecified hemorrhoids (principal); K63.5 Polyp of colon | CPT/HCPCS: 46600; 99212 ==

== ENCOUNTER 2023-06-13 08:36 | Outpatient (AMB) | payer OTHER, SELFPAY ==
--- NOTE | 2023-06-13 08:39 | A.OFFPC_ITS ---
Vital Signs 06/13/23 08:43 Height 5 ft 4 in Weight 189 lb BMI 32.4 BP 120/76 Blood Pressure Location Rt brachial Position Sitting Pulse 90 Pulse Source Pulse Oximeter Pulse Oximetry (%) 98 Oxygen Delivery Method Room Air Intake Visit Reasons: 1 month f/u DM (per ag) Intake Note: pt is here for 1 month follow up regarding DM Audio Experience Expert Required: No Accompanied by: Self / Same As Patient Allergies No Known Allergies Allergy (Verified 06/13/23 08:51) seasonal Allergy (Unknown, Uncoded 06/13/23 08:51) Unknown Medication List - Last Reconciled 06/13/23 by CAROL Patel blood-glucose meter (FreeStyle Lite Meter kit) As directed ferrous sulfate 325 mg PO DAILY FreeStyle Lite Strips (blood sugar diagnostic) Test blood sugar twice a day NS hydrocortisone 2.5% (Proctozone-HC) 1 appl NM BID hydrocortisone acetate (Anusol-HC) 25 mg NM BID 2 weeks lancets (FreeStyle Lancets) Test blood sugar twice a day metformin 500 mg PO BID sitz bath As directed Tobacco use date assessed: 05/16/23 Dental Screening Dental Screen Date: 05/16/23 HPI HPI Comments History of Present Illness Details Patient is a 37-year-old female in today for follow-up. Patient was discharged from the hospital 1 month prior with anemia that required blood transfusions and was incidentally discovered to be type 2 diabetic. Patient has been taking iron supplements over the past month. Will redraw CBC. Patient denies episodes of dizziness, chest pain, shortness a breath, nausea, vomiting, diarrhea. Diabetes type 2-patient is up-to-date with eye exam. Patient will get referral to Podiatry. Will draw much albumin, basic metabolic profile. Patient states sugars at home have been in the 200s, will increase metformin from 500 mg p.o. b.i.d. to a 1000 mg p.o. b.i.d.. Patient will also be placed on Jardiance 10 mg. Patient denies polyuria polydipsia. COUNT INCLUDES THE [facility] Medical History (Updated 06/13/23 @ 09:09 by CAROL Patel) Anemia Bleeding hemorrhoids Diabetes mellitus Hx of gastritis Obesity No known health problems Surgical History History of colonoscopy (~12/2022) Social History Household Members: Children Household Members Other:: 7 Housing: Homeless Do you presently have visiting nurse or other home services: No Alcohol intake: unknown Patient Tobacco Use Status: Never used Tobacco e-Cigarette/Vaping Use: Never Used Second Hand Smoke Exposure: No service: No Current occupational status: employed Current occupation: [employer] Questionnaire Thrive Questionnaire Date Thrive assessed: 05/16/23 DANO-7 AMB Questionnaire DANO-7 Date DANO - 7 assessed: 05/16/23 Source: Developed by Drs. Micah Romo, Aruna Romano, Omari De Jesus and colleagues, with an educational bruce from [employer]. Review of Systems Const All systems reviewed & are unremarkable except as noted in HPI and below Denies chills and Denies fever(s) Card Denies chest pain, Denies palpitations and Denies dyspnea Resp Denies dyspnea GI Denies diarrhea, Denies nausea and Denies vomiting Endo Denies polydipsia, Denies polyuria and Denies palpitations Physical exam (Primary Care) Vital Signs: Last Vital Signs Pulse 90 06/13/23 08:43 BP 120/76 06/13/23 08:43 Pulse Ox 98 06/13/23 08:43 Oxygen Delivery Method Room Air 06/13/23 08:43 Care Plan Goal for BP management: Vital signs reviewed stable. BMI result Body Mass Index 32.4 Tobacco/Smoking Status: Tobacco use Status Tobacco use date assessed 05/16/23 06/13/23 08:40 Patient Tobacco Use Status Never used Tobacco 06/13/23 08:40 e-Cigarette/Vaping Use Never Used 06/13/23 08:40 Thrive Assessment: Date of Thrive Assessment Date Thrive assessed 05/16/23 06/13/23 08:40 Const Other: Appearance: Alert.? Oriented X3.? No acute distress.? Head: Normocephalic. Eyes: Pupils equal, round and reactive to light.? ENT: Pharynx normal.? Neck: Normal inspection.? Neck supple.? CVS: Normal heart rate and rhythm.? Pulses normal.? Respiratory: No respiratory distress.? Breath sounds normal.? Abdomen: Soft. +tender to epigastric area. Skin: Skin warm and dry.? Normal skin color.? Normal skin turgor.? Extremities: No lower extremity edema.? Neuro: Oriented X 3.? No motor deficit.? No sensory deficit. Assessment and Plan Assessment & Plan (1) Abdominal pain: Comment: Patient has tenderness to palpation on exam. Patient states she also gets discomfort for small amount time after eating. Will order labs, will order abdominal ultrasound. Code(s): R10.9 - Unspecified abdominal pain Qualifiers: Abdominal location: epigastric Qualified Code(s): R10.13 - Epigastric pain (2) Diabetes type 2, no ocular involvement: Comment: Metformin increased to 1000 mg p.o. b.i.d.. Patient started on Jardiance. Code(s): E11.9 - Type 2 diabetes mellitus without complications (3) Anemia: Comment: Patient currently taking ferrous fumarate 325 will redraw CBC Code(s): D64.9 - Anemia, unspecified Qualifiers: Anemia type: unspecified type Qualified Code(s): D64.9 - Anemia, unspecified Plan: Take your medications as prescribed. If you were prescribed antibiotics today, it is important that you take your medication to their entirety, do not skip any doses, do not finish them early. Return to the emergency department with new or worsening symptoms. Such as fevers, chills, chest pain, shortness of breath, nausea, vomiting, dizziness, headache, vision changes, lethargy In case of emergency call 911 Plan Follow-up in 2 months for diabetes. Orders: Orders US abdomen limited Today R10.9 - Unspecified abdominal pain Microalbumin, Random (w Creat) Today E11.9 - Type 2 diabetes mellitus without complications Lipase Today R10.13 - Epigastric pain Referrals Podiatry Referral E11.9 - Type 2 diabetes mellitus without complications Medications: New empagliflozin (Jardiance) 10 mg PO DAILY 30 tabs 0RF Coding Level of Care Code Est Pt Level 4 (10339) Diagnoses Epigastric pain R10.13 Abdominal location: epigastric Diabetes type 2, no ocular involvement E11.9 Anemia, unspecified type D64.9 Anemia type: unspecified type Time Spent (min) 31
[2023-06-13 08:43] VITALS: BP 120/76; PULSE 90; O2SAT 98; BMI 32.4
== END 2023-06-13 09:08 | disposition home or self-care (01) ==
PROVIDERS: Visit Provider Nurse Practitioner Primary Care
DX: R10.13 Epigastric pain (principal); E11.9 Type 2 diabetes mellitus without complications; D64.9 Anemia, unspecified
CPT/HCPCS: 99214

== ENCOUNTER 2023-06-13 09:09 | Outpatient (REF) | payer OTHER, SELFPAY ==
[2023-06-13 10:13] LABS: MANUAL DIFF FLAG NO
[2023-06-13 10:43] LABS: Basophils Absolute Auto 0.1 X10*3/uL (0.0-0.2); Basophils Percent Auto 0.7 % (0-2); Eosinophils Absolute Auto 0.3 X10*3/uL (0.0-0.4); Eosinophils Percent Auto 3.5 % (0-4); Hematocrit 34.1 % (37.0-47.0); Hemoglobin 10.2 g/dl (12.0-16.0); Imm Gran Abs Auto 0.03 X10*3/uL (0.00-0.03); Imm Gran Pct Auto 0.4 % (0.0-0.4); Lymphocytes Absolute Auto 2.1 X10*3/uL (1.2-4.9); Lymphocytes Percent Auto 27.6 % (20-40); Mean Corpuscular HGB Conc 29.9 g/dl (31.0-35.0); Mean Corpuscular Hemoglobin 23.6 pg (27.0-33.0); Mean Corpuscular Volume 78.8 fL (80.0-98.0); Mean Platelet Volume 10.3 fL (9.4-12.3); Monocytes Absolute Auto 0.3 X10*3/uL (0.1-1.2); Monocytes Percent Auto 4.5 % (2-11); Neutrophils Absolute Auto 4.7 x10*3/uL (2.0-8.3); Neutrophils Percent Auto 63.3 % (45-73); Platelet Count 378 X10*3/uL (160-400); Red Blood Count 4.33 X10*6/uL (4.20-5.50); Red Cell Distribution Width 27.6 % (11.0-16.0); White Blood Count 7.5 X10*3/uL (4.8-10.8)
[2023-06-13 11:30] LABS: Creatinine Urine 41.22 mg/dL; Microalbumin Urine < 5.0 mg/L
[2023-06-13 11:38] LABS: Alanine Aminotransferase 58 U/L (0-31); Albumin Level 3.9 g/dL (3.5-5.0); Alkaline Phosphatase 106 U/L (39-117); Anion Gap 13 (12-20); Aspartate Amino Transferase 33 U/L (5-31); Bilirubin Total 0.4 mg/dL (0.0-1.0); Blood Urea Nitrogen 10 mg/dL (9-16); Calcium 9.9 mg/dL (8.4-10.2); Carbon Dioxide 23 mmol/L (22-29); Chloride 104 mmol/L (96-108); Estimated Glomerular Filt Rate > 60; Lipase 41 U/L (8-78); Potassium 3.9 mmol/L (3.3-5.1); Sodium 136 mmol/L (135-145); Total Protein 7.3 g/dL (6.5-8.0)
[2023-06-13 13:45] LABS: Glucose Random 351 mg/dL (60-115)
== END 2023-06-13 09:10 | disposition home or self-care (01) ==
LOC: HO.HMGCLDS 09:09
PROVIDERS: PCP Nurse Practitioner Primary Care; Visit Provider Nurse Practitioner Primary Care
DX: Z13.0 Encounter for screening for diseases of the blood and blood-forming organs and certain disorders involving the immune mechanism (principal); R10.13 Epigastric pain; E11.9 Type 2 diabetes mellitus without complications
CPT/HCPCS: 36415; 80053; 82043; 82570; 83690; 85025

== ENCOUNTER 2023-06-22 07:50 | Outpatient (REF) | payer OTHER, SELFPAY ==
--- NOTE | ~2023-06-22 | US_ITS ---
EXAMINATION: US ABDOMEN LIMITED CLINICAL INFORMATION: Unspecified abdominal pain. COMPARISON: CT abdomen and pelvis 12/31/2022. Ultrasound abdomen 09/27/2012. TECHNIQUE: Real-time imaging of the right upper quadrant abdominal viscera. Limited visualization due to bowel gas and body habitus. FINDINGS: PANCREAS: Poorly visualized. LIVER: Hepatomegaly, 18.1 cm. Increased hepatic parenchymal heterogeneity and echogenicity could be associated with hepatocellular disease/hepatic steatosis and severely limits visualization. Correlation with liver function tests and clinical exam recommended to determine further management. GALLBLADDER: Normal. The gallbladder is physiologically distended without evidence of stones, sludge, polyps, wall thickening or pericholecystic fluid. COMMON BILE DUCT: Poorly visualized. Structure felt to possibly represent a small segment of the common duct may measure 0.3 cm in diameter. RIGHT KIDNEY: No hydronephrosis. No renal calculi. Limited visualization. The kidney measures 11.5 cm in maximum dimension. FREE FLUID: None. US/US abdomen limited IMPRESSION: Hepatomegaly, 18.1 cm. Increased hepatic parenchymal heterogeneity and echogenicity could be associated with hepatocellular disease/hepatic steatosis and severely limits visualization. Correlation with liver function tests and clinical exam recommended to determine further management.
== END 2023-06-22 07:51 | disposition home or self-care (01) ==
LOC: HO.US 07:50
PROVIDERS: PCP Nurse Practitioner Primary Care; Visit Provider Nurse Practitioner Primary Care
DX: R10.9 Unspecified abdominal pain (principal)
CPT/HCPCS: 76705

== ENCOUNTER 2023-06-28 06:10 | Day surgery (SDC) | payer OTHER, SELFPAY ==
[2023-06-24 14:10] VITALS: BMI 32.4
--- NOTE | 2023-06-27 10:35 | P.CONAN_ITS ---
HPI - Anesthesia Eval Consult details Narrative: 37yo F for EUA, Hemorrhoidectomy s/p EGD and [place] 12/2022 with [place] C admit 05/2023: Hospital course The patient was admitted for acute blood loss symptomatic anemia secondary to internal hemorrhoid bleeding requiring blood transfusion of 2 units with fair response as repeat Hb >8. Started on Hydrocortisone cream and Sitz bath with good response over the hospital stay as she was evaluated by surgery and GI. She will follow with dr Ty as outpatient for surgical intervention. To continue Iron supplement on discharge. The patient had quicker than anticipated improvement and doesnt need 2 overnight stay inpatient. Anesthesia Pre-Procedure Meds Is the patient on any of the following meds?: SGLT2 Inhib PMFSH Active Problems Active Problems: All Active Problems Abdominal pain (Acute) Diabetes type 2, no ocular involvement (Acute) Symptomatic anemia (Acute) Pancreatic cyst (Acute) Anemia (Acute) Bleeding hemorrhoids (Acute) Past Medical History Medical History Seasonal allergies Bleeding hemorrhoids Hx of gastritis Obesity Diabetes mellitus Anemia Family History Family history of problems with anesthesia: No Surgical History Surgical History History of colonoscopy (~12/2022) History of Problems with Anesthesia: No Social History Social History Household Members: Children Household Members Other:: 7 Housing: Homeless Do you presently have visiting nurse or other home services: No Alcohol intake: unknown Patient Tobacco Use Status: Never used Tobacco e-Cigarette/Vaping Use: Never Used Second Hand Smoke Exposure: No service: No Current occupational status: employed Current occupation: [employer] Meds Allergies Allergy/AdvReac Type Severity Reaction Status Date / Time No Known Allergies Allergy Verified 06/28/23 06:40 Home Medications ?Medication ?Instructions ?Recorded ?Confirmed ?Last Taken ?Type ferrous sulfate 325 mg (65 mg 325 mg PO DAILY 05/14/23 06/28/23 06/24/23 History iron) tablet,delayed release metformin 500 mg tablet 500 mg PO BID 06/13/23 06/28/23 06/24/23 History Exam Height,Weight and Vital Signs: Height 5 ft 4 in Weight 85.729 kg Pertinent Lab Results Pertinent Lab Results: Laboratory Tests 06/13/23 09:21 WBC 7.5 Hgb 10.2 L D Hct 34.1 L Plt Count 378 Sodium 136 Potassium 3.9 Chloride 104 Carbon Dioxide 23 BUN 10 Creatinine 0.73 Narrative Narrative: EKG 05/2023 Vent. Rate : 097 BPM Atrial Rate : 097 BPM P-R Int : 150 ms QRS Dur : 088 ms QT Int : 352 ms P-R-T Axes : 044 007 014 degrees QTc Int : 447 ms Normal sinus rhythm Normal ECG When compared with ECG of 13-MAY-2023 23:45, QRS axis Shifted left No significant changes seen compared to original EKG Assessment and Plan Assessment Anesthesia Assessment: Chart Reviewed Final Anesthetic Review Family History of Problems with Anesthesia: No History of Problems with Anesthesia: No
[2023-06-28] VITALS (9 sets, daily range): BP systolic 119–155; BP diastolic 68–101; PULSE 87–105; RESP 15–17; TEMP 36.7–36.9; O2SAT 97–100; BMI 32.8
[2023-06-28 06:50] LABS: UPreg QC Valid YES
[2023-06-28 06:51] LABS: Urine Pregnancy NEGATIVE (NEGATIVE)
[2023-06-28 06:59] LABS: Glucose, Whole Blood 207 mg/dL (60-115)
[2023-06-28] MEDS: Lactated Ringers 1,000 ML 100 ML IVCONT (07:13)
--- NOTE | 2023-06-28 07:15 | PC.NURSE ---
Patient arrived to preop. Wearing two gold stud earrings and one loose gladis bracelet. All jewelry unable to be removed. Dr. Sy at bedside to assess. [place] waiver signed. Okay to proceed.
--- NOTE | 2023-06-28 07:32 | P.CONAN_ITS ---
[facility] Active Problems Active Problems: All Active Problems Abdominal pain (Acute) Diabetes type 2, no ocular involvement (Acute) Symptomatic anemia (Acute) Pancreatic cyst (Acute) Anemia (Acute) Bleeding hemorrhoids (Acute) Past Medical History Medical History Seasonal allergies Bleeding hemorrhoids Hx of gastritis Obesity Diabetes mellitus Anemia Functional capacity: independent ambulation Patient : No Family History Family history of problems with anesthesia: No Surgical History Surgical History History of colonoscopy (~12/2022) History of Problems with Anesthesia: No Social History Social History Household Members: Children Household Members Other:: 7 Housing: Homeless Do you presently have visiting nurse or other home services: No Alcohol intake: unknown Patient Tobacco Use Status: Never used Tobacco e-Cigarette/Vaping Use: Never Used Second Hand Smoke Exposure: No service: No Current occupational status: employed Current occupation: [employer]) Allergies Allergy/AdvReac Type Severity Reaction Status Date / Time No Known Allergies Allergy Verified 06/28/23 06:40 Active Medications: Current Medications Lactated Ringer's (Lr) 1,000 mls @ 100 mls/hr IVCONT .Q10H TIM Last Admin: 06/28/23 07:13 Dose: 100 mls/hr Home Medications ?Medication ?Instructions ?Recorded ?Confirmed ?Last Taken ?Type ferrous sulfate 325 mg (65 mg 325 mg PO DAILY 05/14/23 06/28/23 06/24/23 History iron) tablet,delayed release metformin 500 mg tablet 500 mg PO BID 06/13/23 06/28/23 06/24/23 History Exam Height,Weight and Vital Signs: Height 5 ft 4 in Weight 86.727 kg Last Vital Signs Temp 98.1 F 06/28/23 06:52 Pulse 88 06/28/23 06:52 Resp 16 06/28/23 06:52 BP 119/68 06/28/23 06:52 Pulse Ox 97 06/28/23 06:52 O2 Del Method Room Air 06/28/23 06:52 Pertinent Lab Results Pertinent Lab Results: Laboratory Tests 06/28/23 06/28/23 06:40 06:50 POC Glucose 207 H Urine Test NEGATIVE Airway Mallampati Class: IV TM Dist: >3cm Neck ROM: Full Heart: RRR Lungs: CTA Assessment and Plan Assessment Anesthesia Assessment: Anesthesia Plan Discussed Final Anesthetic Review Family History of Problems with Anesthesia: No History of Problems with Anesthesia: No ASA Class: III Final Preanesthetic Review: Meds/Allgs Chart Reviewed, Consent Obtained/Reviewed and Anes Risks/Benef Reviewed Patient Risk: Intermediate Procedure Risk: Intermediate Anesthetic Plan Anesthetic Plan: GA Disposition: Standard PACU
--- NOTE | 2023-06-28 07:53 | MHC.SHP ---
Pre-Procedural Eval Section A - 24 Hr Update-Section A only Date of Service: 06/28/23 The patient is an INPATIENT: No Changes since office visit: No Cold of Flu in the past 2 weeks, No New Medical Problems, No Changes in Medication and No Patient answered all questions The patient has been examined within 24 hours of the surgical procedure. The History & Physical has been completed within 30 days and I have reviewed it.: Yes Section B - Complete if H&P > 30 days Chief Complaint: Unspecified hemorrhoids Allergies: Allergies Allergy/AdvReac Type Severity Reaction Status Date / Time No Known Allergies Allergy Verified 06/28/23 06:40 Plan I have reviewed the history and physical and performed a pertinent physical examination on my patient. No changes have occurred unless specified. Time Spent With Patient Time: Total time managing care of this patient today ____ minutes.
--- NOTE | 2023-06-28 09:30 | P.OP_ITS ---
Operative Note Operative Note Date of Service: 06/28/23 Narrative: Preop diagnosis: Bleeding hemorrhoids, internal external Postop diagnosis: The same Procedure: Exam under anesthesia hemorrhoidectomy x2 columns Surgeon: Sukhjinder Ty MD Transplanter Orchid: SANTOS Jimenez student The patient is a 37 year female with significant bleeding from her hemorrhoids and I would to proceed with hemorrhoidectomy. She understood the technique of the procedure as well as the risks, benefits, and alternatives She was brought to the operating room and placed in prone radha-knife position under general anesthesia via endotracheal tube. The buttocks were retracted with wide tape laterally. The perianal area was prepped and draped in the usual sterile fashion. A surgical time-out was done. The patient received Cefotan 2 g IV preoperatively I infiltrated the perianal area with lidocaine. Examination of the anal orifice revealed bulky hemorrhoidal columns on the right anterior as well as the posterior. This appeared to be a mix of internal and external hemorrhoids. I inserted the Alyssa Wood retractor and examined the anal canal circumferentially. Again this hemorrhoidal columns were seen and were noted to be a mix of internal external. There were no other lesions. There was no fissure or induration I applied a Barkley grasper at the hemorrhoidal column on the anterior aspect to retract this out of the field. I made a [id number]-af-[id number] stitch at its pedicle with chromic 3-0. I made an incision around this hemorrhoidal column to the perianal skin with a blade 15. I excised this column above the plane of the sphincters with scissors. I closed the incision with a running chromic 3-0 stitch. Additional hemostatic sutures with [id number] chromic were placed for oozing areas The same procedure was duplicated on the hemorrhoidal column posteriorly. Again this was retracted with a Barkley grasper and a pjvrit-vm-wowhf stitch was applied on the pedicle. I made an incision around this column to the perianal skin and excise this is above the plane of the sphincters along this incision. I closed this incision with a running chromic 3-0 stitch an additional hemostatic sutures with chromic 3-0 [id number] were placed. Once hemostasis was confirmed, I proceeded to then infiltrate the perianal area with Marcaine 0.5% for postop analgesia. A rolled Gelfoam was placed. The procedure was then completed The patient tolerated the procedure well. There were no immediate complications. Initial final counts of sponges and instruments were correct. Estimated blood loss was about 50 cc The patient was extubated without difficulty and transferred to the recovery room with stable vital signs.
[2023-06-28 09:47] LABS: Glucose, Whole Blood 165 mg/dL (60-115)
[2023-06-28] MEDS: Acetaminophen 1,000 MG/100 ML PIGGYBACK 400 MG IV (10:11)
--- NOTE | 2023-06-28 10:31 | HO.POSTANES ---
Post Anesthesia Evaluation Post Anesthesia Evaluation Date of Service: 06/28/23 Vital Signs: Vital Signs Temp Pulse Resp BP Pulse Ox O2 Del Method O2 Flow Rate 06/28/23 10:15 92 17 143/101 H 99 Room Air 06/28/23 10:00 99 17 150/96 H 100 Room Air 06/28/23 09:50 95 16 142/89 H 100 Nasal Cannula 2 06/28/23 09:45 98 15 144/92 H 100 Nasal Cannula 2 06/28/23 09:40 96 16 135/80 100 Nasal Cannula 2 06/28/23 09:38 98.4 F 105 H 16 155/83 H 100 Nasal Cannula 2 06/28/23 06:52 98.1 F 88 16 119/68 97 Room Air Anesthesia: General Endotracheal-GETA Pain Control: Satisfactory Nausea/Vomiting: None Hydration: Adequate Anesthesia-Related Issues: No Anes. Related Issues
== END 2023-06-28 11:22 | disposition home or self-care (01) ==
PROVIDERS: Nurse Practitioner; PCP Nurse Practitioner Primary Care; Visit Provider Surgery
PROC: (CPT 46260; principal; 2023-06-28 08:10)
DX: K64.8 Other hemorrhoids (principal); K64.9 Unspecified hemorrhoids; Z87.19 Personal history of other diseases of the digestive system; E11.9 Type 2 diabetes mellitus without complications; D64.9 Anemia, unspecified; J30.2 Other seasonal allergic rhinitis; E66.9 Obesity, unspecified; Z68.31 Body mass index [BMI] 31.0-31.9, adult; Z79.84 Long term (current) use of oral hypoglycemic drugs; Z79.899 Other long term (current) drug therapy
CPT/HCPCS: 46260; 81025; 82947; 88304; J0131; J0665; J1100; J2250; J2405; J2704; J3010

== ENCOUNTER → 2023-06-28 06:10 | Outpatient (BNV) | payer OTHER, SELFPAY | PROVIDERS: PCP Nurse Practitioner Primary Care; Visit Provider Surgery | DX: K64.8 Other hemorrhoids (principal) | CPT/HCPCS: 46260 ==

== ENCOUNTER 2023-07-11 10:28 | Outpatient (AMB) | payer OTHER, SELFPAY ==
--- NOTE | 2023-07-11 10:37 | A.OFFVIS_ITS ---
Intake Visit Reasons: S/P hemorrhoidectomy Intake Note: This patient presents for a post-op assessment status post hemorrhiodectomy. Patient c/o; reports ? infection, reports yellowish discharge, reports pain, reports unable to sit for prolong periods of time. Voice Intercept Technician Required: No Accompanied by: Self / Same As Patient Allergies No Known Allergies Allergy (Verified 07/11/23 10:45) HPI HPI S/P hemorrhoidectomy: Details: She had hemorrhoidectomy x2 columns for large, bulky bleeding hemorrhoids last 06/28/2023. She tolerated the procedure well. She had significant pain postop but says that she is much better now. She still occasionally sees some small amounts of blood [facility] Medical History Seasonal allergies Bleeding hemorrhoids Hx of gastritis Obesity Diabetes mellitus Anemia Surgical History History of hemorrhoidectomy (~06/28/23) History of colonoscopy (~12/2022) Social History Household Members: Children Household Members Other:: 7 Housing: Homeless Do you presently have visiting nurse or other home services: No Alcohol intake: unknown Patient Tobacco Use Status: Never used Tobacco e-Cigarette/Vaping Use: Never Used Second Hand Smoke Exposure: No service: No Current occupational status: employed Current occupation: [employer] Review of Systems Const Denies chills and Denies fever(s) Card Denies chest pain at rest Resp Denies cough GI Denies abdominal pain Physical Exam Const Other: Able so it down comfortably General: comfortable and no acute distress Resp Effort & Inspection: normal respiratory effort GI Other: Rectal exam shows the hemorrhoidectomy sites to be healing well but with still significant residual edema, no induration, no pus Assessment & Plan Assessment & Plan (1) Bleeding hemorrhoids: Code(s): K64.9 - Unspecified hemorrhoids Category: Medical Plan: Status post hemorrhoidectomy x2 columns. Her hemorrhoidectomy sites are healing but she still has significant edema. I have instructed her on doing warm soaks or hot Sitz baths 3 times a day. She is to avoid straining and constipation I will see her again for another wound check in about 2 weeks. She understands the plan and is comfortable. Her path report shows hemorrhoids. Medications: Refilled oxycodone-acetaminophen 5-325 mg (Percocet) Partial Fill upon patient request. 1 tab PO Q4-6H PRN 15 tabs 0RF pain ibuprofen 600 mg PO Q6H PRN 20 tabs 0RF pain Discontinued hydrocortisone acetate (Anusol-HC) Discontinued Reason: None 25 mg WI BID 2 weeks 24 ea 0RF Coding Level of Care Code Global (60000) Diagnoses Bleeding hemorrhoids K64.9
== END 2023-07-11 11:22 | disposition home or self-care (01) ==
PROVIDERS: PCP Nurse Practitioner Primary Care; Visit Provider Surgery
DX: K64.9 Unspecified hemorrhoids (principal)
CPT/HCPCS: 99024

== ENCOUNTER → 2023-07-11 10:28 | Outpatient (BNVA) | payer OTHER, SELFPAY | PROVIDERS: PCP Nurse Practitioner Primary Care; Visit Provider Surgery | DX: K64.9 Unspecified hemorrhoids (principal) | CPT/HCPCS: 99212 ==

== ENCOUNTER 2023-08-15 11:48 | Outpatient (AMB) | payer OTHER, SELFPAY ==
--- NOTE | 2023-08-15 12:04 | MHC.PC.OV ---
Vital Signs 08/15/23 12:05 Height 5 ft 4 in Weight 182 lb BMI 31.2 BP 108/68 Blood Pressure Location Lt brachial Position Sitting Pulse 92 Pulse Source Pulse Oximeter Pulse Oximetry (%) 98 Oxygen Delivery Method Room Air Intake Visit Reasons: Office visit Intake Note: pt is here for f/u diabetes and anemia Allergies No Known Allergies Allergy (Verified 08/15/23 12:20) Medication List - Last Reconciled 08/15/23 by CAROL Patel blood-glucose meter (FreeStyle Lite Meter kit) As directed docusate sodium (Colace) 100 mg PO BID empagliflozin (Jardiance) 10 mg PO DAILY ferrous sulfate 325 mg PO DAILY FreeStyle Lite Strips (blood sugar diagnostic) Test blood sugar twice a day NS hydrocortisone 2.5% (Proctozone-HC) 1 appl IA BID ibuprofen 600 mg PO Q6H PRN lancets (FreeStyle Lancets) Test blood sugar twice a day metformin 500 mg PO BID oxycodone-acetaminophen 5-325 mg (Percocet) 1 tab PO Q4-6H PRN sitz bath As directed Tobacco use date assessed: 08/15/23 Dental Screening Dental Screen Date: 05/16/23 HPI HPI Comments History of Present Illness Details Patient is a 38-year-old female in today for diabetic follow-up. Patient is due for eye exam, she states she will schedule this. Patient has declined Podiatry referral. Denies symptoms of polyuria polydipsia. Patient is in office A1c is 8.3 today which is down from 8.9. Patient's previous states that she has been trying to work on diet and exercise. She is interested in starting tirzepatide today. she does not have any family history or personal history of thyroid cancer or thyroid disease. Will order this and follow-up with patient in 1 month. Patient is also instructed to take blood sugar measurements at home. Should continue to work on diet and exercise. Patient will also have blood draw to reassess anemia status. Patient has been taking ferrous fumarate 325 for the past several months. She denies any symptoms of dizziness, chest pain, shortness a breath, nausea, vomiting, diarrhea PFSH Medical History Seasonal allergies Bleeding hemorrhoids Hx of gastritis Obesity Diabetes mellitus Anemia Surgical History History of hemorrhoidectomy (~06/28/23) History of colonoscopy (~12/2022) Social History Household Members: Children Household Members Other:: 7 Housing: Homeless Do you presently have visiting nurse or other home services: No Alcohol intake: unknown Patient Tobacco Use Status: Never used Tobacco e-Cigarette/Vaping Use: Never Used Second Hand Smoke Exposure: No service: No Current occupational status: employed Current occupation: [employer] Questionnaire Thrive Questionnaire Date Thrive assessed: 05/16/23 DANO-7 AMB Questionnaire DANO-7 Date DANO - 7 assessed: 05/16/23 Source: Developed by Drs. Micah Romo, Aruna Romano, Omari De Jesus and colleagues, with an educational bruce from [employer] Review of Systems Const All systems reviewed & are unremarkable except as noted in HPI and below Physical exam (Primary Care) Vital Signs: Last Vital Signs Pulse 92 08/15/23 12:05 BP 108/68 08/15/23 12:05 Pulse Ox 98 08/15/23 12:05 Oxygen Delivery Method Room Air 08/15/23 12:05 Care Plan Goal for BP management: patient's blood pressure is under control. BMI result Body Mass Index 31.2 Tobacco/Smoking Status: Tobacco use Status Tobacco use date assessed 08/15/23 08/15/23 12:07 Patient Tobacco Use Status Never used Tobacco 08/15/23 12:04 e-Cigarette/Vaping Use Never Used 08/15/23 12:04 Thrive Assessment: Date of Thrive Assessment Date Thrive assessed 05/16/23 08/15/23 12:04 Const Other: Appearance: Alert.? Oriented X3.? No acute distress.? Head: Normocephalic, atraumatic, no step-offs or deformities Neck: Normal inspection.? Neck supple.? CVS: Normal heart rate and rhythm.? Pulses normal.? Respiratory: No respiratory distress.? Breath sounds normal.? Abdomen: Soft and nontender.? Neuro: Oriented X 3.? No motor deficit.? No sensory deficit. CN 2-12 intact Results AMB Hemoglobin A1c AMB Hemoglobin A1c 8.3 % Last Edit by Avelino Kingsley CMA on 08/15/23 12:22 Assessment and Plan Assessment & Plan (1) Diabetes type 2, no ocular involvement: Comment: Patient was having diarrhea on 1000 mg p.o. b.i.d. of metformin, states that she reduced her dosage down to 500 mg p.o. b.i.d which he has been much better able to tolerate. Patient is also taking Jardiance 10 mg p.o. daily. Will add to tirzepatide. Will draw labs. Patient to follow up in 1 month after starting tirzepatide. Code(s): E11.9 - Type 2 diabetes mellitus without complications (2) Anemia: Comment: Patient currently taking ferrous fumarate 325 will redraw CBC Code(s): D64.9 - Anemia, unspecified Qualifiers: Anemia type: unspecified type Qualified Code(s): D64.9 - Anemia, unspecified Orders: Orders Comprehensive Met. Panel Today Z91.89 - Other specified personal risk factors, not elsewhere classified AMB Hemoglobin A1c Today E11.9 - Type 2 diabetes mellitus without complications Complete Blood Count Auto Diff Today Z13.0 - Encounter for screening for diseases of the blood and blood-forming organs and certain disorders involving the immune mechanism Referrals INSTRUMENT CHECKER Referral Z01.419 - Encounter for gynecological examination (general) (routine) without abnormal findings Medications: New tirzepatide (Mounjaro) 2.5 mg (0.5 mL) subcut QWEEK 4 weeks 2 mL 0RF Coding Level of Care Code Est Pt Level 3 (21995) Diagnoses Diabetes type 2, no ocular involvement E11.9 Anemia, unspecified type D64.9 Anemia type: unspecified type Time Spent (min) 28
[2023-08-15 12:05] VITALS: BP 108/68; PULSE 92; O2SAT 98; BMI 31.2
== END 2023-08-15 12:56 | disposition home or self-care (01) ==
PROVIDERS: PCP Nurse Practitioner Primary Care; Visit Provider Nurse Practitioner Primary Care
DX: E11.9 Type 2 diabetes mellitus without complications (principal); D64.9 Anemia, unspecified
CPT/HCPCS: 83036; 99213

== ENCOUNTER 2023-09-13 12:16 | Outpatient (AMB) | payer OTHER, SELFPAY ==
--- NOTE | 2023-09-13 12:28 | MHC.PC.OV ---
Vital Signs 09/13/23 12:29 Height 5 ft 4 in Weight 179 lb BMI 30.7 BP 132/76 Blood Pressure Location Rt brachial Position Sitting Pulse 94 Pulse Source Pulse Oximeter Pulse Oximetry (%) 99 Oxygen Delivery Method Room Air Intake Visit Reasons: transfer from [facility]/ Intake Note: Pt is here today as a transfer from [facility] Allergies No Known Allergies Allergy (Verified 09/13/23 13:11) Medication List - Last Reconciled 09/13/23 by DARIN Rushing blood-glucose meter (FreeStyle Lite Meter kit) As directed docusate sodium (Colace) 100 mg PO BID ferrous sulfate 325 mg PO DAILY FreeStyle Lite Strips (blood sugar diagnostic) Test blood sugar twice a day NS lancets (FreeStyle Lancets) Test blood sugar twice a day semaglutide (Ozempic) 0.25 mg (0.368 mL) subcut QWEEK sitz bath As directed Tobacco use date assessed: 09/13/23 Dental Screening Dental Screen Date: 09/13/23 Did you have a dental visit in the last 12 months?: Yes Did you have a dental problem in the last 6 months where you did not have access to dental care?: No Was dental information given to patient?: Patient has dentist HPI transfer from [facility]/ HPI Details New pt is here to establish care. Pt is a diabetic. Last A1C was 8.3, microalbumin is up to date. Denies polyuria, polydipsia, and neuropathy. Pt denies any signs and symptoms of hypoglycemia and does know how to correct it. Pt reports that trulicity is causing facial redness. Will stop this and send ozempic. Pt could not tolerate metformin or jardiance. Will try farxiga. Pt will schedule her own eye exam. Pt does not have a radiation therapist, will refer. Will also start lisinopril 2.5mg and atorvastatin 10mg. [facility] Medical History Diabetes mellitus Metformin adverse reaction Seasonal allergies Bleeding hemorrhoids Hx of gastritis Obesity Anemia Surgical History History of hemorrhoidectomy (~06/28/23) History of colonoscopy (~12/2022) Social History Household Members: Children Household Members Other:: 7 Housing: Homeless Do you presently have visiting nurse or other home services: No Alcohol intake: unknown Patient Tobacco Use Status: Never used Tobacco e-Cigarette/Vaping Use: Never Used Second Hand Smoke Exposure: No service: No Current occupational status: employed Current occupation: [employer] Cognitive needs: No Hearing needs: No Vision needs: No Questionnaire PHQ-9 Over the last 2 weeks, how often have you been bothered by any of the following problems? 1. Little interest or pleasure in doing things: not at all 2. Feeling down, depressed, or hopeless: not at all 3. Trouble falling or staying asleep, or sleeping too much: not at all 4. Feeling tired or having little energy: not at all 5. Poor appetite or overeating: not at all 6. Feeling bad about yourself - or that you are a failure or have let yourself or your family down: not at all 7. Trouble concentrating on things, such as reading the newspaper or watching television: not at all 8. Moving or speaking so slowly that other people could have noticed. Or the opposite - being so fidgety or restless that you have been moving around a lot more than usual: not at all 9. Thoughts that you would be better off or of hurting yourself in some way: not at all Total score: 0 Depression Screening Interpretation: Negative Depression Screening Done: Yes 51835 - PHQ-9 Billing: Yes Source: Developed by Drs. Micah Romo, Aruna Romano, Omari De Jesus and colleagues, with an educational bruce from [employer]. Thrive Questionnaire Date Thrive assessed: 09/13/23 I am a: Patient What is your living situation today?: I have a steady place to live Within the past 12 months, did the food you bought not last and you didn't have the money to get more?: I choose not to answer this question Within the past 12 months, did you worry whether your food would run out before you got money to buy more?: I choose not to answer this question Do you have trouble paying for medicines?: I choose not to answer this question Do you have trouble getting transportation to medical appointments?: No Do you have trouble paying your heating and electricity bill?: I choose not to answer this question Do you have trouble taking care of your child, family member or friend?: No Do you have trouble with day-to-day activities such as bathing, preparing meals, shopping, managing finances, etc.?: I choose not to answer this question Are you currently unemployed and looking for a job?: I choose not to answer this question Are you interested in more education?: I choose not to answer this question Please select the resources that you would like help with: Housing/Group Home Currently or been in a relationship where the following occur: I choose not to answer THRIVE Score: 0 AUDIT C Alcohol Use Questionnaire (AUDIT-C) 1. How often do you have a drink containing alcohol?: Never 3. How often do you have six or more drinks on one occasion?: Never Total Score: 0 Score Reviewed/Action Taken: Yes DANO-7 AMB Questionnaire DANO-7 Date DANO - 7 assessed: 09/13/23 Feeling nervous, anxious, or on edge: 0 = Not at all Not being able to stop or control worryin = Not at all Worrying too much about different things: 0 = Not at all Trouble relaxin = Not at all Being so restless that it is hard to sit still: 0 = Not at all Becoming easily annoyed or irritable: 0 = Not at all Feeling afraid as if something awful might happen: 0 = Not at all Total DANO-7 score (0-4 normal; 5-9 mild; 10-14 moderate; 15-21 severe): 0 Source: Developed by Drs. Micah Romo, Aruna Romano, Omari De Jesus and colleagues, with an educational bruce from [employer]. DANO-7 Assessment Billing DANO-7 Assessment Tool: DANO-7 Assessment 66350 Review of Systems Const Reports as per HPI Physical exam (Primary Care) Vital Signs: Last Vital Signs Pulse 94 09/13/23 12:29 BP 132/76 09/13/23 12:29 Pulse Ox 99 09/13/23 12:29 Oxygen Delivery Method Room Air 09/13/23 12:29 BMI result Body Mass Index 30.7 Tobacco/Smoking Status: Tobacco use Status Tobacco use date assessed 09/13/23 09/13/23 12:35 Patient Tobacco Use Status Never used Tobacco 09/13/23 12:35 e-Cigarette/Vaping Use Never Used 09/13/23 12:35 PHQ-9: PHQ-9 Score PHQ-9: Total score 0 09/13/23 13:26 Depression Screening Interpretation: Negative Thrive Assessment: Date of Thrive Assessment Date Thrive assessed 09/13/23 09/13/23 12:35 Currently or been in a relationship where the following occur: I choose not to answer Const General: cooperative Orientation/consciousness: patient oriented x3 Resp Effort & Inspection: normal respiratory effort Auscultation: clear to auscultation bilaterally Cardio Rate: regular rate Rhythm: regular rhythm Heart sounds: S1 normal heart sound present and S2 normal heart sound present Neuro General: patient oriented x3 Extrem Other: bilat feet: + sensation with use of monofilament, feet intact Psych Appearance: grossly normal Mental Status: mental status grossly normal Speech and movement: Normal speech and movement present Affect: normal affect Attitude: cooperative Thought process: Normal thought process present Thought content: Normal thought content present Insight: Good insight present (Psych) Judgement: Good judgement present (Psych) Immunizations pneumoc 20-pedro conj-dip cr(PF) 0.5 mL IM syringe Performing Provider: DARIN Rushing Performing Location: [facility] Administered by: Meng Williamson CMA on 09/13/23 13:26 Dose Route Admin Location Dispensed Lot Number Expiration Date NDC Photographic Machine Operator 0.5 mL IM Left Deltoid 0.5 mL [id number] 08/06/24 7774-5537-73 Healthy Humans/Cardiorobotics VIS Given Date VIS Provided VIS Publication Date 09/13/23 Single Vaccine 21 Eligibility Eligibility Date Funding Source Not VFC Eligible 09/13/23 Private Assessment and Plan Assessment & Plan (1) Depo-Provera contraceptive status: Code(s): Z30.42 - Encounter for surveillance of injectable contraceptive Plan: Referred to radiation therapist (2) Screening for cervical cancer: Code(s): Z12.4 - Encounter for screening for malignant neoplasm of cervix Plan: Referred to radiation therapist (3) Diabetes mellitus: Code(s): E11.9 - Type 2 diabetes mellitus without complications Qualifiers: Diabetes mellitus complication status: without complication 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 Scribed for Raj Kruse CLINICAL EXERCISE SPECIALIST- by Karen Adams medical affairs manager, on 09/13/2023 at 13:10 EST. Orders: Orders Complete Blood Count Auto Diff Today E11.9 - Type 2 diabetes mellitus without complications Lipid Panel Today E11.9 - Type 2 diabetes mellitus without complications Comprehensive [place]. Panel Fast Today E11.9 - Type 2 diabetes mellitus without complications TSH reflex Free T4 Today E11.9 - Type 2 diabetes mellitus without complications UA CC w/rflx Micro + Cult Today E11.9 - Type 2 diabetes mellitus without complications Pneumococcal 20 Immunization Today Z23 - Encounter for immunization Referrals GAUGE MAKER Referral Z12.4 - Encounter for screening for malignant neoplasm of cervix, Z30.42 - Encounter for surveillance of injectable contraceptive Medications: New atorvastatin 10 mg PO BEDTIME 90 tabs 0RF semaglutide (Ozempic) for 4 weeks 0.25 mg (0.368 mL) subcut QWEEK 3 mL 0RF dapagliflozin propanediol (Farxiga) 5 mg PO DAILY 90 tabs 0RF lisinopril 2.5 mg PO DAILY 90 tabs 0RF Discontinued tirzepatide (Mounjaro) Discontinued Reason: Duplicate 2.5 mg (0.5 mL) subcut QWEEK 4 weeks 2 mL 0RF dulaglutide (Trulicity) Discontinued Reason: Doctor's Order 0.75 mg (0.5 mL) subcut QWEEK 2 mL 2RF E11.9 - Type 2 diabetes mellitus without complications, T38.3X5A - Adverse effect of insulin and oral hypoglycemic [antidiabetic] drugs, initial encounter Coding Level of Care Code New Pt Level 3 (47637) Diagnoses Depo-Provera contraceptive status Z30.42 Screening for cervical cancer Z12.4 Type 2 diabetes mellitus without complication, without long-term current use of insulin E11.9 Diabetes mellitus complication status: without complication Diabetes mellitus termite control servicer insulin use: without termite control servicer use Diabetes mellitus type: type 2 Additional Codes DANO-7 Assessment Billing - DANO-7 Assessment Tool: DANO-7 Assessment 35384 ([id number])
[2023-09-13 12:29] VITALS: BP 132/76; PULSE 94; O2SAT 99; BMI 30.7
== END 2023-09-13 14:11 | disposition home or self-care (01) ==
PROVIDERS: PCP Nurse Practitioner Primary Care; Visit Provider Nurse Practitioner Family
DX: E11.9 Type 2 diabetes mellitus without complications (principal); Z30.42 Encounter for surveillance of injectable contraceptive; Z23 Encounter for immunization
CPT/HCPCS: 90471; 90677; 99203

== ENCOUNTER 2023-09-23 08:56 | Outpatient (REF) | payer OTHER, SELFPAY ==
[2023-09-24 06:51] LABS: CT PCR NOT DETECTED (Not Detect.); NG PCR NOT DETECTED (Not Detect.)
[2023-09-24 11:38] LABS: Bacterial Vaginosis PCR NEGATIVE (Negative); Candida Group PCR NOT DETECTED (Not Detect); Candida glab krusei PCR DETECTED (Not Detect); Trichomonas vaginalis PCR NOT DETECTED (Not Detect)
[2023-09-27 17:38] LABS: HPV mRNA E6/E7 Not Detected (Not Detected)
== END 2023-09-23 08:57 | disposition home or self-care (01) ==
LOC: HO.LAB 08:56
PROVIDERS: PCP Nurse Practitioner Primary Care; Visit Provider Advanced Practice Midwife
DX: N89.8 Other specified noninflammatory disorders of vagina (principal); Z20.2 Contact with and (suspected) exposure to infections with a predominantly sexual mode of transmission; Z01.419 Encounter for gynecological examination (general) (routine) without abnormal findings; Z12.4 Encounter for screening for malignant neoplasm of cervix; D64.9 Anemia, unspecified; E11.9 Type 2 diabetes mellitus without complications; Z79.84 Long term (current) use of oral hypoglycemic drugs; D62 Acute posthemorrhagic anemia; N88.8 Other specified noninflammatory disorders of cervix uteri
CPT/HCPCS: 0352U; 36415; 87491; 87591; 87624; 88175; 99395

== ENCOUNTER 2023-09-23 08:56 | Outpatient (AMB) | payer OTHER, SELFPAY ==
[2023-09-23 09:17] VITALS: BP 106/60; BMI 30.6
--- NOTE | 2023-09-23 09:17 | MHC.OFFVIS ---
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 Level Vial Setter Required: No Information Interpreted: clinical only Market Manager: Market Manager Present Allergies No Known Allergies Allergy (Verified 09/23/23 09:18) Medication List - Last Reconciled 09/23/23 by Kandi Gilbert CNM atorvastatin 10 mg PO BEDTIME blood-glucose meter (FreeStyle Lite Meter kit) As directed dapagliflozin propanediol (Farxiga) 5 mg PO DAILY docusate sodium (Colace) 100 mg PO BID ferrous sulfate 325 mg PO DAILY FreeStyle Lite Strips (blood sugar diagnostic) Test blood sugar twice a day NS lancets (FreeStyle Lancets) Test blood sugar twice a day lisinopril 2.5 mg PO DAILY semaglutide (Ozempic) 0.25 mg (0.368 mL) subcut QWEEK sitz bath As directed Is last menstrual period known: Yes Last menstrual period: 08/23/23 Do you need a note to return to daycare/school/sports/work: No 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 That she w delivered all with the [facility]. She recently got diagnosed with severe anemia she was hospitalized x2 for bleeding and anemia in the last year and also she was discovered to be diabetic during at least 1 of the hospitalizations and is working to lose weight and manage her diabetes. She had 2 un[facility] and then was given Depo-Provera she also had had an IUD in the past but reports that she bled lightly continually throughout a year so it that was removed.. She currently is not contraceptive thing is away so she does not have sex very often the last time was 2-3 months ago. Her last time that she was on Depo was perhaps in March. She had wanted to resume it but she did not know that that could account for weight gain and she had gained weight during the time of COVID and when she was on Depo. [facility] Medical History Diabetes mellitus Metformin adverse reaction Seasonal allergies Bleeding hemorrhoids Hx of gastritis Obesity Anemia Surgical History History of hemorrhoidectomy (~06/28/23) History of colonoscopy (~12/2022) Family History (Updated 09/23/23 @ 09:26 by Linda Ramesh CMA) Mother History of uterine fibroid Mother Breast cancer Social History Household Members: Children Household Members Other:: 7 Housing: Homeless Do you presently have visiting nurse or other home services: No Alcohol intake: unknown Patient Tobacco Use Status: Never used Tobacco e-Cigarette/Vaping Use: Never Used Second Hand Smoke Exposure: No service: No Current occupational status: employed Current occupation: [employer] Cognitive needs: No Hearing needs: No Vision needs: No Female Reproductive History Menstrual Age of Menarche: 11 Duration of menses: 3-5 days Date of last menstrual period: 08/23/23 control method: none Total pregnancies: 6 Full term: 4 Date of last pap smear: 01/05/21 (negative) History of abnormal pap smear: No Physical Exam Vital Signs: Last Vital Signs BP 106/60 09/23/23 09:17 BMI result Body Mass Index 30.6 Const General: healthy appearing, comfortable, no acute distress, well developed and alert Nutritional Appearance: average body habitus Orientation/consciousness: patient oriented x3 Limitations: no limitations HEENT Head: Yes normocephalic Neck Neck: Yes normal visual inspection Chest Chest palpation & inspection: normal inspection of the chest Breast/axilla inspection: normal inspection of the breasts and normal inspection of the axillae Breast/axilla palpation: normal palpation of the breasts and normal palpation of the axillae Resp Effort & Inspection: normal respiratory effort GI Inspection: Yes normal to inspection, No Abdominal wall edema and No distended Palpation (GI): Soft to palpation and nontender Other: Normal external exam cervix was very pink and smooth multiparous. Pap and cultures obtained about 5 seconds after the Pap smear was done very brisk bright red bleeding started pouring from cervical os no visible bleeding site could be seen bleeding it did eventually stop but it filled about 6 scoppettes. No visible polyp. Cervix long close thick mobile nontender uterus difficult to palpate secondary to adipose but nontender and mobile adnexa nontender good tone with Kegel. Will investigate what has been worked up during her hospitalizations and amend if necessary General: Yes bladder normal to palpation External Female Exam: normal external appearance and normal appearance of the urethra Speculum Exam - Vagina: normal appearance of the vagina, normal palpation and normal vaginal discharge Speculum Exam - Cervix: normal appearance of the cervix, normal palpation and nontender Bimanual exam- vagina & uterus: normal bimanual exam, normal palpation, uterine size normal, bladder normal to palpation, consistency normal, normal palpation, uterine mobility normal, uterine shape normal, No Cervical tenderness present, non-tender and no cervical motion tenderness Bimanual Exam- Adnexa, other: normal adnexae, no masses, normal and No adnexal tenderness Neuro General: patient oriented x3 Results Reviewed Results Reviewed: Reviewed many of her labs and some of her imaging studies done during hospitalizations as well as hospitalist and other specialist and surgical notes. Patient: Vern Nieves MR#: [id number] : 1985 Acct:[id number] Age/Sex: 37 / F ADM Date: 12/31/22 Loc: .ED Attending Dr: Ordering Physician: Bing Valentine Date of Service: 12/31/22 Procedure(s): CT gi bleed abd pel wo/w IVcon Accession Number(s): [id number] cc: Physician,None ; Bing Valentine~ EXAMINATION: CT ABDOMEN AND PELVIS WITHOUT AND WITH CONTRAST CLINICAL INFORMATION: GI bleed. COMPARISON: None available. TECHNIQUE: Multidetector volumetric images were obtained from the superior aspect of the liver through the pubic symphysis before and following the administration 85 mL of Omnipaque 350 intravenous contrast. Sagittal and coronal reformatted images were obtained on the technologist's workstation. Oral contrast: No This CT examination was performed using dose optimization techniques as appropriate, variously including the following: *Automated exposure control *Adjustment of mA and/or kV according to patient size (this includes techniques or standardized protocols for targeted exams where dose is matched to indication/reason for exam; i.e. extremities or head) *Use of iterative reconstruction technique DLP: 1786 mGy-cm FINDINGS: LUNG BASES: There is a faint nonspecific 2 mm nodule at the right lung base. There is minimal scarring at both lung bases. LIVER, GALLBLADDER, AND BILIARY TREE: The liver is of heterogeneous diminished attenuation. No focal liver lesion is seen. There is no intrahepatic biliary duct dilatation. The gallbladder is unremarkable with no evidence of radiopaque gallstones, gallbladder wall thickening, or obvious pericholecystic inflammatory changes. PANCREAS: There is a 9 mm hypodensity along the posterior body of the pancreas. SPLEEN: Unremarkable. ADRENAL GLANDS: Unremarkable. KIDNEYS AND URETERS: The kidneys are normal in size, shape, and attenuation. No hydronephrosis, hydroureter, or calculi seen. No perinephric stranding. BLADDER: Unremarkable. GASTROINTESTINAL TRACT: Unremarkable. There is no evidence for contrast extravasation to suggest active gastrointestinal bleeding. ABDOMINAL WALL: Unremarkable LYMPH NODES: Normal. VASCULAR: There is atherosclerotic plaque of the abdominal aorta. PELVIC VISCERA: The uterus is heterogeneous in attenuation. OSSEOUS STRUCTURES: Unremarkable. CT/CT gi bleed abd pel wo/w IVcon IMPRESSION: Fatty infiltration of the liver. No evidence for active GI bleeding. Heterogeneous uterus possibly small fibroids. 9 mm hypodensity along the posterior body of the pancreas is not able to be fully characterize but probably a cyst. Consider a six-month follow-up or MRI evaluation to confirm the cystic nature of this lesion. No acute intra-abdominal process. Fleischner guidelines were followed. Dictated By: Micah Moreau Signed By: <Electronically signed by Micah Moreau in OV> 12/31/22 1620 DD/ 1303 TD/TT: Toll Lineman: Name: Vern Nieves Age/Sex: 37/F : 1985 Unit#: [id number] Attend Dr: Eric Neumann MD Re12/31/22 Status: DIS IN Location: [facility] 384-1 Disch: 01/02/23 SPEC : [id number] MIKE: 12/31/22-1119 STATUS: COMP REQ : [id number] RECD: 12/31/[address] [facility] [address]: Bing Valentine COMP: 12/31/22 ENTERED: 12/31/22 [facility] DR: Physician,None ORDERED: PT INR Test Result Flag Reference PT* 10.9 L 11.1-13.3 SEC INR 0.9 0.9-1.1 INTERNATIONAL NORMALIZED RATIO (INR) REFERENCE RANGES Reference Range For patients not on anticoagulant therapy: 0.9 - 1.1 INR ranges for oral anticoagulant therapy: For prevention and treatment of venous thrombosis and pulmonary embolism: 2.0 - 3.0 For acute myocardial infarction with aspirin therapy: 2.0 - 3.0 For acute myocardial infarction without aspirin therapy: 3.0 - 4.0 For patients with mechanical prosthetic heart valves: 2.5 - 3.5 Assessment & Plan Assessment & Plan (1) Screening for cervical cancer: Code(s): Z12.4 - Encounter for screening for malignant neoplasm of cervix Category: Medical (2) Anemia: Comment: Patient currently taking ferrous fumarate 325 will redraw CBC Code(s): D64.9 - Anemia, unspecified Category: Medical Qualifiers: Anemia type: unspecified type Qualified Code(s): D64.9 - Anemia, unspecified (3) Diabetes type 2, no ocular involvement: Comment: Patient was having diarrhea on 1000 mg p.o. b.i.d. of metformin, states that she reduced her dosage down to 500 mg p.o. b.i.d which he has been much better able to tolerate. Patient is also taking Jardiance 10 mg p.o. daily. Will add to tirzepatide. Will draw labs. Patient to follow up in 1 month after starting tirzepatide. Code(s): E11.9 - Type 2 diabetes mellitus without complications Category: Medical (4) Acute blood loss anemia: Comment: hosp x 2 in last yr Code(s): D62 - Acute posthemorrhagic anemia Category: Medical (5) Bleeding hemorrhoids: Code(s): K64.9 - Unspecified hemorrhoids Category: Medical (6) Friable cervix: Comment: Cervix pink and smooth. About 5 seconds after Pap was done brisk bright red bleeding started pouring from os filled 6 scoppettes before stopping. 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 She is waiting for 1 of the medications to be approved by insurance she had had a reaction to the metformin so she is actively working on trying to control how she is eating and get her diabetes under control.. She had been hospitalized as recently as this spring but there was evidence of a previous hospitalization as well involving bleeding and anemia during the most recent hospitalization she was severely anemic and was given 2 units transfused and 2 iron transfusions that is the time that they discovered that she was also diabetic and she has been working hard and trying to get that under control since she is on iron currently her CBC had improved. She also had had surgery for bleeding hemorrhoids and she has had other evaluations as well During this exam she bled very briskly about 5 seconds after the Pap smear was done there was no visible site seen that was bleeding which raises the question of polyp within the cervical os that was touched by the tip of the Cytobrush it was not visible to this provider I will order a pelvic ultrasound and we will have follow-up and I am also placing a Hematology referral case there is some underlying blood clotting disorder as well contributing to this We also discussed other methods of control and I had suggested a Mirena and after much thinking about it she had initially decided to start back with the Depo but now she thinks she would rather just stick with condoms and be very careful and try to let her body get back to healthier place before using any other hormonal method. We will see her after the ultrasound and I placed the referral as well. Orders: Orders US pelvic and transvaginal Today D62 - Acute posthemorrhagic anemia, D64.9 - Anemia, unspecified, E11.9 - Type 2 diabetes mellitus without complications, K64.9 - Unspecified hemorrhoids, Z12.4 - Encounter for screening for malignant neoplasm of cervix Referrals Hematology & Oncology Referral D64.9 - Anemia, unspecified, E11.9 - Type 2 diabetes mellitus without complications, K64.9 - Unspecified hemorrhoids, N88.8 - Other specified noninflammatory disorders of cervix uteri, Z12.4 - Encounter for screening for malignant neoplasm of cervix Coding Level of Care Code Est Pt Prev Care [id number]([id number]) Diagnoses Screening for cervical cancer Z12.4 Anemia, unspecified type D64.9 Anemia type: unspecified type Diabetes type 2, no ocular involvement E11.9 Acute blood loss anemia D62 Bleeding hemorrhoids K64.9 Friable cervix N88.8
== END 2023-09-23 10:29 | disposition home or self-care (01) ==
LOC: HO.HWSM 08:56
PROVIDERS: PCP Nurse Practitioner Primary Care; Visit Provider Advanced Practice Midwife
DX: Z01.419 Encounter for gynecological examination (general) (routine) without abnormal findings (principal); D64.9 Anemia, unspecified; E11.9 Type 2 diabetes mellitus without complications; D62 Acute posthemorrhagic anemia; K64.9 Unspecified hemorrhoids; N88.8 Other specified noninflammatory disorders of cervix uteri
CPT/HCPCS: 99395

== ENCOUNTER 2023-09-30 11:04 | Outpatient (REF) | payer OTHER, SELFPAY ==
--- NOTE | ~2023-09-30 | US_ITS ---
EXAMINATION: US PELVIS COMPLETE CLINICAL INFORMATION: Encounter for screening for malignant neoplasm of cervix; the last menstrual period was on 08/2023. COMPARISON: Pelvic ultrasound dated 04/18/2017. TECHNIQUE: Transabdominal and transvaginal imaging were performed. FINDINGS: The uterus is of normal size and echogenicity measuring 4.6 x 3.6 x 4.7 cm. The uterus is anteverted and anteflexed. A regular, homogeneous endometrium is identified measuring 0.7 cm. A 2 mm cyst is seen within the endometrial stripe. The cervical length is 3.5 cm. Nabothian cysts are seen within the cervix. FIBROIDS: There is 1 fibroid seen. 1. Location: Upper leftward body, myometrial. Size: 0.5 x 0.3 x 0.5 cm. Fibroid characteristics: Hypoechoic. Both ovaries are of normal size and echogenicity. The right ovary measures 3.4 x 1.8 x 2.2 cm for a volume of 7.0 mL. The right ovary contains a 1.7 cm benign, simple physiologic follicle, for which no imaging follow-up is recommended. The left measures 1.9 x 1.2 x 1.0 cm for a volume of 1.2 mL. There is no pelvic free fluid. US/US pelvic and transvaginal IMPRESSION: 1. A small uterine fibroid is seen, as detailed. 2. Nabothian cysts are seen within the cervix. 3. A 2 mm cystic focus is seen within the endometrial stripe, which is within normal limits for thickness. Electronically signed by: Raj Tsang MD 10/10/2023 11:43 PM EDT
== END 2023-09-30 11:05 | disposition home or self-care (01) ==
LOC: HO.US 11:04
PROVIDERS: PCP Nurse Practitioner Primary Care; Visit Provider Advanced Practice Midwife
DX: E11.9 Type 2 diabetes mellitus without complications (principal); D64.9 Anemia, unspecified; K64.9 Unspecified hemorrhoids; D62 Acute posthemorrhagic anemia; Z12.4 Encounter for screening for malignant neoplasm of cervix
CPT/HCPCS: 76830; 76856

== ENCOUNTER 2023-10-19 07:44 | Outpatient (REF) | payer OTHER, SELFPAY ==
[2023-10-19 10:09] LABS: MANUAL DIFF FLAG NO
[2023-10-19 10:19] LABS: Basophils Absolute Auto 0.1 X10*3/uL (0.0-0.2); Basophils Percent Auto 0.8 % (0-2); Eosinophils Absolute Auto 0.4 X10*3/uL (0.0-0.4); Hematocrit 44.7 % (37.0-47.0); Hemoglobin 13.8 g/dl (12.0-16.0); Imm Gran Abs Auto 0.02 X10*3/uL (0.00-0.03); Imm Gran Pct Auto 0.2 % (0.0-0.4); Lymphocytes Absolute Auto 2.6 X10*3/uL (1.2-4.9); Lymphocytes Percent Auto 27.4 % (20-40); Mean Corpuscular HGB Conc 30.9 g/dl (31.0-35.0); Mean Corpuscular Hemoglobin 24.8 pg (27.0-33.0); Mean Corpuscular Volume 80.3 fL (80.0-98.0); Mean Platelet Volume 10.1 fL (9.4-12.3); Monocytes Absolute Auto 0.4 X10*3/uL (0.1-1.2); Monocytes Percent Auto 4.1 % (2-11); Neutrophils Absolute Auto 6.1 x10*3/uL (2.0-8.3); Neutrophils Percent Auto 63.5 % (45-73); Platelet Count 359 X10*3/uL (160-400); Red Blood Count 5.57 X10*6/uL (4.20-5.50); Red Cell Distribution Width 22.5 % (11.0-16.0); White Blood Count 9.6 X10*3/uL (4.8-10.8)
[2023-10-19 10:39] LABS: Appearance Urine Turbid; Color Urine Yellow; Glucose Urine UA 500 mg/dL (Negative); Leukocyte Esterase Urine Negative (Negative); Nitrite Urine Negative (Negative); PH 5.5 (5.0-9.0); Urine Blood Negative (Negative); Urine Ketones Negative (Negative); Urine Protein Negative (Neg-Trace)
[2023-10-19 10:42] LABS: Alanine Aminotransferase 60 U/L (0-31); Albumin Level 4.4 g/dL (3.5-5.0); Alkaline Phosphatase 97 U/L (39-117); Anion Gap 13 (12-20); Aspartate Amino Transferase 35 U/L (5-31); Bilirubin Total 0.7 mg/dL (0.0-1.0); Blood Urea Nitrogen 9 mg/dL (9-16); Calcium 9.9 mg/dL (8.4-10.2); Carbon Dioxide 26 mmol/L (22-29); Chloride 103 mmol/L (96-108); Cholesterol 194 mg/dL (<200); Estimated Glomerular Filt Rate > 60; Glucose Fasting 117 mg/dL (60-99); HDL Cholesterol 40 mg/dL (>40); LDL Cholesterol Calculated 107 mg/dL (<100); Potassium 4.1 mmol/L (3.3-5.1); Sodium 138 mmol/L (135-145); Total Protein 8.1 g/dL (6.5-8.0); Triglycerides 236 mg/dL (<150)
[2023-10-19 11:02] LABS: TSH reflex Free T4 1.19 uIU/mL (0.32-4.0)
== END 2023-10-19 07:45 | disposition home or self-care (01) ==
LOC: HO.HMGCLDS 07:44
PROVIDERS: PCP Nurse Practitioner Family; Visit Provider Nurse Practitioner Family
DX: E11.9 Type 2 diabetes mellitus without complications (principal)
CPT/HCPCS: 36415; 80053; 80061; 81003; 84443; 85025

== ENCOUNTER 2023-10-21 11:09 | Outpatient (AMB) | payer OTHER, SELFPAY ==
[2023-10-21 11:46] VITALS: BP 112/70; BMI 30.6
--- NOTE | 2023-10-21 11:46 | MHC.OFFVIS ---
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: No Information Interpreted: clinical only Allergies No Known Allergies Allergy (Verified 10/21/23 11:47) Medication List - Last Reconciled 10/21/23 by Kandi Gilbert CNM atorvastatin 10 mg PO BEDTIME blood-glucose meter (FreeStyle Lite Meter kit) As directed dapagliflozin propanediol (Farxiga) 5 mg PO DAILY docusate sodium (Colace) 100 mg PO BID ferrous sulfate 325 mg PO DAILY FreeStyle Lite Strips (blood sugar diagnostic) Test blood sugar twice a day NS lancets (FreeStyle Lancets) Test blood sugar twice a day lisinopril 2.5 mg PO DAILY semaglutide (Ozempic) 0.5 mg (0.736 mL) subcut QWEEK sitz bath As directed Is last menstrual period known: No HPI HPI Ultrasound Follow up: Details: Patient is here to review her pelvic ultrasound that she had done to see if there were any thing that could explain her blood loss that required hospitalization with transfusions in June of this year. Additionally after patient left I had placed a referral to Hematology Oncology because of her unexplained history of bleeding and the brisk bleeding that she had from her cervix and that I did not see Hematology note from her hospitalization. She had had brisk bleeding from her cervix when I did the Pap smear and it was somewhat unusual. The patient tells me she is currently on thick and she is really noticing that it is very much helping her with helping with her appetite and hoping her only eat small portions and she is losing weight and feeling very good and she is getting her diabetes in good control as well so she is very happy with it and wants to continue with that she is not that is sexually active as her is working the way in another state that when she does have sex they use condoms because she does not want to get back on any hormonal method like Depo that contributed to weight gain for her. She recently got blood work that her primary care provider ordered and she is currently not anemic also thyroid level was done and her blood sugars are improving,. Review of the ultrasound revealed a small 0.5 cm fibroid and a tiny 2 mm cystic structure in the endometrium additionally follicular cyst and nabothian cysts nothing requires follow-up. [facility] Medical History Fatty liver Diabetes mellitus Metformin adverse reaction Seasonal allergies Bleeding hemorrhoids Hx of gastritis Obesity Anemia Surgical History History of hemorrhoidectomy (~06/28/23) History of colonoscopy (~12/2022) Family History Mother History of uterine fibroid Mother Breast cancer Social History Household Members: Children Household Members Other:: 7 Housing: Homeless Do you presently have visiting nurse or other home services: No Alcohol intake: unknown Patient Tobacco Use Status: Never used Tobacco e-Cigarette/Vaping Use: Never Used Second Hand Smoke Exposure: No service: No Current occupational status: employed Current occupation: [employer] Cognitive needs: No Hearing needs: No Vision needs: No Female Reproductive History Menstrual Age of Menarche: 11 Duration of menses: other control method: none Physical Exam Vital Signs: Last Vital Signs BP 112/70 10/21/23 11:46 BMI result Body Mass Index 30.6 Results Reviewed Results Reviewed: Patient: Vern Nieves MR#: [id number] : 1985 Acct:[id number] Age/Sex: 38 / F ADM Date: 09/30/23 Loc: HO.US Attending Dr: Kandi Gilbert CNM Ordering Physician: Kandi Gilbert CNM Date of Service: 09/30/23 Procedure(s): US pelvic and transvaginal Accession Number(s): [id number] cc: Humphrey Redd; Kandi Gilbert CNM~ EXAMINATION: US PELVIS COMPLETE CLINICAL INFORMATION: Encounter for screening for malignant neoplasm of cervix; the last menstrual period was on 08/2023. COMPARISON: Pelvic ultrasound dated 04/18/2017. TECHNIQUE: Transabdominal and transvaginal imaging were performed. FINDINGS: The uterus is of normal size and echogenicity measuring 4.6 x 3.6 x 4.7 cm. The uterus is anteverted and anteflexed. A regular, homogeneous endometrium is identified measuring 0.7 cm. A 2 mm cyst is seen within the endometrial stripe. The cervical length is 3.5 cm. Nabothian cysts are seen within the cervix. FIBROIDS: There is 1 fibroid seen. 1. Location: Upper leftward body, myometrial. Size: 0.5 x 0.3 x 0.5 cm. Fibroid characteristics: Hypoechoic. Both ovaries are of normal size and echogenicity. The right ovary measures 3.4 x 1.8 x 2.2 cm for a volume of 7.0 mL. The right ovary contains a 1.7 cm benign, simple physiologic follicle, for which no imaging follow-up is recommended. The left measures 1.9 x 1.2 x 1.0 cm for a volume of 1.2 mL. There is no pelvic free fluid. US/US pelvic and transvaginal IMPRESSION: 1. A small uterine fibroid is seen, as detailed. 2. Nabothian cysts are seen within the cervix. 3. A 2 mm cystic focus is seen within the endometrial stripe, which is within normal limits for thickness. Electronically signed by: Raj Tsang MD 10/10/2023 11:43 PM EDT RP Dictated By: Raj Tsang MD Signed By: <Electronically signed by Raj Tsang MD in OV> 10/10/23 2343 DD/ 1117 TD/TT: 09/30/23 1134 [employer] Director: MARTIN Name: Vern Nieves Age/Sex: 38/F : 1985 Unit#: [id number] Attend Dr: Raj Kruse Re10/19/23 Status: DEP REF Location: HO.[facility] Disch: SPEC : [id number] MIKE: 10/19/23 STATUS: COMP REQ : [id number] RECD: 10/19/23-[address]: Raj Kruse COMP: 10/19/23 ENTERED: 10/19/23 [facility] : ORDERED: CBC Auto Diff Test Result Flag Reference WBC 9.6 4.8-10.8 X10*3/uL RBC 5.57 # H 4.20-5.50 X10*6/uL HGB 13.8 # 12.0-16.0 g/dl HCT 44.7 # 37.0-47.0 % MCV 80.3 80.0-98.0 fL MCH 24.8 L 27.0-33.0 pg MCHC 30.9 L 31.0-35.0 g/dl RDW 22.5 H 11.0-16.0 % PLT 359 160-400 X10*3/uL MPV 10.1 9.4-12.3 fL Neut Pct Auto 63.5 45-73 % ImGran Pct Auto 0.2 0.0-0.4 % Lymp Pct Auto 27.4 20-40 % [place] Pct Auto 4.1 2-11 % Eos Pct Auto 4.0 0-4 % Baso Pct Auto 0.8 0-2 % NRBC Pct Auto 0.0 0.0-0.2 /100WBC ANC Neut Abs # 6.1 2.0-8.3 x10*3/uL ImGran Abs Auto 0.02 0.00-0.03 X10*3/uL Lymph Abs Auto 2.6 1.2-4.9 X10*3/uL [place] Abs Auto 0.4 0.1-1.2 X10*3/uL Eos Abs Auto 0.4 0.0-0.4 X10*3/uL Baso Abs Auto 0.1 0.0-0.2 X10*3/uL NRBC Abs Auto 0.000 0.0-0.012 X10*3/uL Reviewed Pap smear done in September negative with negative HPV. ([employer] does not appear in the pathology section.) Assessment & Plan Assessment & Plan (1) Friable cervix: Comment: Cervix pink and smooth. About 5 seconds after Pap was done brisk bright red bleeding started pouring from os filled 6 scopettes before stopping.; 09/23/2023 Pap is negative with negative HPV. Code(s): N88.8 - Other specified noninflammatory disorders of cervix uteri Category: Medical (2) Diabetes mellitus: Code(s): E11.9 - Type 2 diabetes mellitus without complications Category: Medical Qualifiers: Diabetes mellitus type: type 2 Diabetes mellitus half-way insulin use: without exterminator helper termite use Diabetes mellitus complication status: without complication Qualified Code(s): E11.9 - Type 2 diabetes mellitus without complications (3) Screening for cervical cancer: Code(s): Z12.4 - Encounter for screening for malignant neoplasm of cervix Category: Medical (4) Symptomatic anemia: Comment: Appears resolved at this time 10/21/2023. Code(s): D64.9 - Anemia, unspecified Category: Medical Plan Patient is here to review her pelvic ultrasound that she had done to see if there were any thing that could explain her blood loss that required hospitalization with transfusions in June of this year. Additionally after patient left I had placed a referral to Hematology Oncology because of her unexplained history of bleeding and the brisk bleeding that she had from her cervix and that I did not see Hematology note from her hospitalization. She had had brisk bleeding from her cervix when I did the Pap smear and it was somewhat unusual. The patient tells me she is currently on thick and she is really noticing that it is very much helping her with helping with her appetite and hoping her only eat small portions and she is losing weight and feeling very good and she is getting her diabetes in good control as well so she is very happy with it and wants to continue with that she is not that is sexually active as her is working the way in another state that when she does have sex they use condoms because she does not want to get back on any hormonal method like Depo that contributed to weight gain for her. She recently got blood work that her primary care provider ordered and she is currently not anemic also thyroid level was done and her blood sugars are improving,. Review of the ultrasound revealed a small 0.5 cm fibroid and a tiny 2 mm cystic structure in the endometrium additionally follicular cyst and nabothian cysts nothing requires follow-up. I reviewed all of these labs and the ultrasound and her history with her. She is doing very very well on the Ozempic and is very pleased with the changes she is seeing and feeling in her own health. Some of her CBC levels were out of range but they were not significant so and she may follow-up with her primary care provider with whom she has an appointment in January. If she does not hear from Hematology Oncology she can discuss whether not it is worth pursuing with him. Of interest she had the little piece of gauze placed after getting her blood drawn on 10/18 and she says she did not bleed very much after there was just a small spot of blood in it stopped at an appropriate time. Previous PT INR tests in the system were from December of 2022. Coding Level of Care Code Est Pt Level 3 (18687) Diagnoses Friable cervix N88.8 Type 2 diabetes mellitus without complication, without long-term current use of insulin E11.9 Diabetes mellitus type: type 2 Diabetes mellitus exterminator helper termite insulin use: without exterminator helper termite use Diabetes mellitus complication status: without complication Screening for cervical cancer Z12.4 Symptomatic anemia D64.9
== END 2023-10-21 12:28 | disposition home or self-care (01) ==
PROVIDERS: PCP Nurse Practitioner Primary Care; Visit Provider Advanced Practice Midwife
DX: N88.8 Other specified noninflammatory disorders of cervix uteri (principal); E11.9 Type 2 diabetes mellitus without complications; Z12.4 Encounter for screening for malignant neoplasm of cervix; D64.9 Anemia, unspecified
CPT/HCPCS: 99213

== ENCOUNTER → 2023-10-21 11:09 | Outpatient (BNVA) | payer OTHER, SELFPAY | PROVIDERS: PCP Nurse Practitioner Primary Care; Visit Provider Advanced Practice Midwife | DX: N88.8 Other specified noninflammatory disorders of cervix uteri (principal); D64.9 Anemia, unspecified; Z71.3 Dietary counseling and surveillance; Z12.4 Encounter for screening for malignant neoplasm of cervix | CPT/HCPCS: 99212 ==

== ENCOUNTER 2024-01-31 13:18 | Outpatient (AMB) | payer OTHER, SELFPAY ==
--- NOTE | 2024-01-31 13:21 | A.OFFPC_ITS ---
Vital Signs 01/31/24 13:23 Height 5 ft 4 in Weight 162 lb BMI 27.8 BP 110/66 Blood Pressure Location Rt brachial Position Sitting Pulse 91 Pulse Source Pulse Oximeter Pulse Oximetry (%) 97 Intake Visit Reasons: 4 month follow up Allergies No Known Allergies Allergy (Verified 01/31/24 13:24) Tobacco use date assessed: 09/13/23 Dental Screening Dental Screen Date: 09/13/23 HPI 4 month follow up HPI Details Chief Complaint Patient presents for diabetes follow-up. History of Present Illness The patient is a 38-year-old female presenting with follow-up for diabetes mellitus management. She reports her blood sugar levels are well controlled. She has been proactive in implementing dietary changes, and she reports feeling good. The patient denies experiencing neuropathy, polyuria, or polydipsia. Her A1c level was recorded in the 5% range today. The patient demonstrates an awareness of hypoglycemia and appropriate corrective actions. She was previously prescribed a statin and an JORGE inhibitor, indicating ongoing management of her condition. The patient has also kept her eye examinations up to date, aligning with recommended diabetes care protocols. Social History - Dietary adjustments have been made as part of diabetes management. - No additional social history details d iscussed. Health Maintenance - Received influenza vaccination today. - Eye examination is up to date. - Continues on prescribed statin and JORGE inhibitor for diabetes management. Review of Systems - Neurologic: Denies neuropathy. - Renal: Denies polyuria. - Endocrine: Denies polydipsia. Physical Exam General: Cooperative, healthy appearing, comfortable, no acute distress and well developed Orientation: Patient oriented x3 Limitations: No limitations Head: Normal to inspection Ears: Hearing grossly normal bilaterally Nose: Normal external nose present Face and sinus: Normal facial exam Eyes: Appearance normal, both eyes and all related structures Neck: Normal visual inspection and Yes full ROM Respiratory: Normal respiratory effort and able to speak in complete sentences. Clear to auscultation bilaterally Cardiovascular: Regular rate and rhythm. Normal S1 and S2 GI: Normal to inspection. Soft to palpation and nontender Skin: No rashes or lesions noted Neuro: Patient oriented x3 Extremities: Feet intact, good sensation with use of monofilament Results - Labs: Hemoglobin A1c in the 5% range. Plan - Continue current diabetes management p ethan with dietary modifications. - Administer influenza vaccination. - Continue statin and JORGE inhibitor as p art of cardiovascular risk reduction. - Maintain routine eye examinations as p art of diabetes care. Patient was informed and verbally consented to the use of an ambient scribe for clinic note documentation during this visit. Discussion Notes I discussed with the patient that her diabetes management is on track, reflected by her A1c levels in the 5% range, indicating excellent glycemic control. I reinforced the importance of continuing her current dietary regimen and medication adherence, including the statin and JORGE inhibitor, to manage her condition and reduce cardiovascular risks effectively. We also reviewed the importance of up-to-date vaccinations, such as the flu shot administered today, and regular eye examinations to prevent diabetes-related complications. Patient Instructions - Continue your current diabetes managem ent routine and monitor blood sugar levels regularly. - Follow your dietary plan to maintain g ood glycemic control. - Continue taking prescribed medications , including the statin and JORGE inh ibitor. - Attend regular eye examinations and ke ep them up to date. - Seek care if experiencing new or worse pradip symptoms such as neuropathy, polyuria, or polydipsia. [facility] Medical History Fatty liver Diabetes mellitus Metformin adverse reaction Seasonal allergies Bleeding hemorrhoids Hx of gastritis Obesity Anemia Surgical History History of hemorrhoidectomy (~06/28/23) History of colonoscopy (~12/2022) Family History Mother History of uterine fibroid Mother Breast cancer Social History Household Members: Children Household Members Other:: 7 Housing: Homeless Do you presently have visiting nurse or other home services: No Alcohol intake: unknown Patient Tobacco Use Status: Never used Tobacco e-Cigarette/Vaping Use: Never Used Second Hand Smoke Exposure: No service: No Current occupational status: employed Current occupation: [employer] Cognitive needs: No Hearing needs: No Vision needs: No Female Reproductive History Menstrual Age of Menarche: 11 Questionnaire Thrive Questionnaire Date Thrive assessed: 09/10/23 I am a: Patient What is your living situation today?: I have a steady place to live Within the past 12 months, did the food you bought not last and you didn't have the money to get more?: I choose not to answer this question Within the past 12 months, did you worry whether your food would run out before you got money to buy more?: I choose not to answer this question Do you have trouble paying for medicines?: I choose not to answer this question Do you have trouble getting transportation to medical appointments?: No Do you have trouble paying your heating and electricity bill?: I choose not to answer this question Do you have trouble taking care of your child, family member or friend?: No Do you have trouble with day-to-day activities such as bathing, preparing meals, shopping, managing finances, etc.?: I choose not to answer this question Are you currently unemployed and looking for a job?: I choose not to answer this question Are you interested in more education?: I choose not to answer this question Please select the resources that you would like help with: None Currently or been in a relationship where the following occur: I choose not to answer THRIVE Score: 0 AUDIT C Alcohol Use Questionnaire (AUDIT-C) 1. How often do you have a drink containing alcohol?: Monthly or less 2. How many drinks containing alcohol do you have on a typical day when you are drinking?: 1 or 2 3. How often do you have six or more drinks on one occasion?: Monthly Total Score: 3 Score Reviewed/Action Taken: Yes DANO-7 AMB Questionnaire DANO-7 Date DANO - 7 assessed: 09/13/23 Source: Developed by Drs. Micah Romo, Aruna Romano, Omari De Jesus and colleagues, with an educational bruce from [employer]. Physical exam (Primary Care) Vital Signs: Last Vital Signs Pulse 91 01/31/24 13:23 BP 110/66 01/31/24 13:23 Pulse Ox 97 01/31/24 13:23 BMI result Body Mass Index 27.8 Tobacco/Smoking Status: Tobacco use Status Tobacco use date assessed 09/13/23 01/31/24 13:22 Patient Tobacco Use Status Never used Tobacco 01/31/24 13:22 e-Cigarette/Vaping Use Never Used 01/31/24 13:22 Thrive Assessment: Date of Thrive Assessment Date Thrive assessed 09/10/23 01/31/24 13:22 Currently or been in a relationship where the following occur: I choose not to answer Office Procedures Flu Questionnaire Does the patient have a severe egg allergy?: No Does the patient have severe life threatening allergies?: No Does the patient have a fever or illness today?: No Has the patient ever had Guillain-Hume Syndrome?: No Has the patient ever had any past reaction to a flu shot?: No Immunizations Fluarix Triv [id number] (PF) 45 mcg (15 mcg x 3)/0.5 mL IM syringe Performing Provider: DARIN Rushing Performing Location: [facility] Administered by: Meng Williamson CMA on 01/31/24 14:44 Dose Route Admin Location Dispensed Lot Number Expiration Date [place] [employer] 0.5 mL IM Left Deltoid 0.5 mL [id number] 08/06/24 [id number] [employer] VIS Given Date VIS Provided VIS Publication Date 01/31/24 Single Vaccine 20 Eligibility Eligibility Date Funding Source Not [facility] Eligible 01/31/24 Private Coding Level of Care Code Est Pt Level 3 (82243) Diagnoses Type 2 diabetes mellitus without complication, without long-term current use of insulin E11.9 Diabetes mellitus type: type 2 Diabetes mellitus fci insulin use: without termite treater use Diabetes mellitus complication status: without complication Assessment & Plan Assessment & Plan (1) Diabetes mellitus: Code(s): E11.9 - Type 2 diabetes mellitus without complications Category: Medical Qualifiers: Diabetes mellitus type: type 2 Diabetes mellitus termite treater insulin use: without fci use Diabetes mellitus complication status: without complication Qualified Code(s): E11.9 - Type 2 diabetes mellitus without compli cations Plan .
[2024-01-31 13:23] VITALS: BP 110/66; PULSE 91; O2SAT 97; BMI 27.8
== END 2024-01-31 13:56 | disposition home or self-care (01) ==
PROVIDERS: PCP Nurse Practitioner Family; Visit Provider Nurse Practitioner Family
DX: Z23 Encounter for immunization (principal); E11.9 Type 2 diabetes mellitus without complications

== ENCOUNTER → 2024-01-31 13:18 | Outpatient (BNVA) | payer OTHER, SELFPAY | PROVIDERS: PCP Nurse Practitioner Family; Visit Provider Nurse Practitioner Family | DX: E11.9 Type 2 diabetes mellitus without complications (principal); Z23 Encounter for immunization | CPT/HCPCS: 90471; 90656; 99212 ==

== ENCOUNTER 2024-07-30 09:07 | Outpatient (AMB) | payer OTHER, SELFPAY ==
[2024-07-30 09:13] VITALS: BP 100/72; PULSE 81; RESP 16; TEMP 37; O2SAT 99; BMI 25.6
--- NOTE | 2024-07-30 09:13 | A.OFFPC_ITS ---
Vital Signs 07/30/24 09:13 Height 5 ft 4 in Weight 149 lb BMI 25.6 BP 100/72 Blood Pressure Location Lt brachial Position Sitting Respiration 16 Pulse 81 Pulse Source Pulse Oximeter Temp 98.6 F Temp Source Oral Pulse Oximetry (%) 99 Oxygen Delivery Method Room Air Intake Visit Reasons: 6m follow up- A1C needed Intake Note: Pt is here today for her 6mo. f/u Allergies No Known Allergies Allergy (Verified 07/30/24 09:34) Medication List - Last Reconciled 07/30/24 by CAROL Rushing-JOELLEN atorvastatin 10 mg PO BEDTIME blood-glucose meter (FreeStyle Lite Meter kit) As directed dapagliflozin propanediol (Farxiga) 5 mg PO DAILY docusate sodium (Colace) 100 mg PO BID ferrous sulfate 325 mg PO DAILY FreeStyle Lite Strips (blood sugar diagnostic) Test blood sugar twice a day NS lancets (FreeStyle Lancets) Test blood sugar twice a day lisinopril 2.5 mg PO DAILY semaglutide (Ozempic) 1 mg (0.75 mL) subcut QWEEK sitz bath As directed Tobacco use date assessed: 07/30/24 Dental Screening Dental Screen Date: 07/30/24 Did you have a dental visit in the last 12 months?: Yes Did you have a dental problem in the last 6 months where you did not have access to dental care?: No Was dental information given to patient?: Patient has dentist HPI 6m follow up- A1C needed HPI Details Chief Complaint The patient presents for diabetes follow-up and preventative care. History of Present Illness The patient is a 39-year-old female presenting with diabetes follow-up. Her diabetes management is progressing well, with an A1c of 5.1, indicating excellent glycemic control. She denies any symptoms of neuropathy, polyuria, or polydipsia, and reports her eye examination is current. The patient has a family history of breast carcinoma, as her mother was affected by this condition. She is due for a mammogram, and a referral for genetic testing was discussed. Social History Health Maintenance - Mammogram due for breast cancer screen ing - Referral for genetic testing due to kami boyd history of breast carcinoma Review of Systems - Neurological: Denies neuropathy - Endocrine: Denies polyuria, polydipsia - Cardiovascular: Denies chest pain - Respiratory: Denies dyspnea Physical Exam General: Cooperative, healthy appearing, comfortable, no acute distress and well developed Orientation: Patient oriented x3 Limitations: No limitations Head: Normal to inspection Ears: Hearing grossly normal bilaterally Nose: Normal external nose present Face and sinus: Normal facial exam Eyes: Appearance normal, both eyes and all related structures Neck: Normal visual inspection and Yes full ROM Respiratory: Normal respiratory effort and able to speak in complete sentences. Clear to auscultation bilaterally Cardiovascular: Regular rate and rhythm. Normal S1 and S2 GI: Normal to inspection. Soft to palpation and nontender Skin: No rashes or lesions noted Neuro: Patient oriented x3 Extremities: Normal to inspection, feet intact with monofilament positive sensation Results - Labs: Hemoglobin A1c 5.1% Plan The patient's diabetes management will continue with regular monitoring of her A1c levels, which are currently well-controlled at 5.1%. A mammogram is due for breast cancer screening, and a referral for genetic testing is recommended due to her family history of breast carcinoma. Additional laboratory tests, including microalbumin, will be conducted to monitor her renal function. Discussion Notes During the visit, we discussed the patient's excellent diabetes management, with an A1c of 5.1%, and the importance of maintaining this control. We also addressed her family history of breast carcinoma, emphasizing the need for a mammogram and considering genetic testing. Patient Instructions - Continue current diabetes management p ethan and monitor blood sugar levels regularly. - Schedule and complete a mammogram for breast cancer screening. - Follow up on referral for genetic test ing due to family history of breast carcinoma. [facility] Medical History Fatty liver Diabetes mellitus Metformin adverse reaction Seasonal allergies Bleeding hemorrhoids Hx of gastritis Obesity Anemia Surgical History History of hemorrhoidectomy (~06/28/23) History of colonoscopy (~12/2022) Family History Mother History of uterine fibroid Mother Breast cancer Social History Household Members: Children Household Members Other:: 7 Housing: Homeless Do you presently have visiting nurse or other home services: No Alcohol intake: unknown Patient Tobacco Use Status: Never used Tobacco e-Cigarette/Vaping Use: Never Used Second Hand Smoke Exposure: No service: No Current occupational status: employed Current occupation: [employer] Cognitive needs: No Hearing needs: No Vision needs: No Female Reproductive History Menstrual Age of Menarche: 11 Questionnaire PHQ-9 Over the last 2 weeks, how often have you been bothered by any of the following problems? 1. Little interest or pleasure in doing things: not at all 2. Feeling down, depressed, or hopeless: not at all 3. Trouble falling or staying asleep, or sleeping too much: not at all 4. Feeling tired or having little energy: not at all 5. Poor appetite or overeating: not at all 6. Feeling bad about yourself - or that you are a failure or have let yourself or your family down: not at all 7. Trouble concentrating on things, such as reading the newspaper or watching television: not at all 8. Moving or speaking so slowly that other people could have noticed. Or the opposite - being so fidgety or restless that you have been moving around a lot more than usual: not at all 9. Thoughts that you would be better off or of hurting yourself in some way: not at all Total score: 0 Depression Screening Interpretation: Negative Depression Screening Done: Yes Source: Developed by Drs. Micah Romo, Aruna Romano, Omari De Jesus and colleagues, with an educational bruce from [employer]. Thrive Questionnaire Date Thrive assessed: 09/10/23 I am a: Patient What is your living situation today?: I choose not to answer this question Within the past 12 months, did the food you bought not last and you didn't have the money to get more?: I choose not to answer this question Within the past 12 months, did you worry whether your food would run out before you got money to buy more?: I choose not to answer this question Do you have trouble paying for medicines?: I choose not to answer this question Do you have trouble getting transportation to medical appointments?: I choose not to answer this question Do you have trouble paying your heating and electricity bill?: I choose not to answer this question Do you have trouble taking care of your child, family member or friend?: I choose not to answer this question Do you have trouble with day-to-day activities such as bathing, preparing meals, shopping, managing finances, etc.?: I choose not to answer this question Are you currently unemployed and looking for a job?: I choose not to answer this question Are you interested in more education?: I choose not to answer this question Please select the resources that you would like help with: None Currently or been in a relationship where the following occur: I choose not to answer THRIVE Score: 0 AUDIT C Alcohol Use Questionnaire (AUDIT-C) 1. How often do you have a drink containing alcohol?: Monthly or less 2. How many drinks containing alcohol do you have on a typical day when you are drinking?: 1 or 2 3. How often do you have six or more drinks on one occasion?: Never Total Score: 1 DANO-7 AMB Questionnaire DANO-7 Date DANO - 7 assessed: 09/13/23 Feeling nervous, anxious, or on edge: 0 = Not at all Not being able to stop or control worryin = Not at all Worrying too much about different things: 0 = Not at all Trouble relaxin = Not at all Being so restless that it is hard to sit still: 0 = Not at all Becoming easily annoyed or irritable: 0 = Not at all Feeling afraid as if something awful might happen: 0 = Not at all Total DANO-7 score (0-4 normal; 5-9 mild; 10-14 moderate; 15-21 severe): 0 Source: Developed by Drs. Micah Romo, Aruna Romano, Omari De Jesus and colleagues, with an educational bruce from [employer]. Physical exam (Primary Care) Vital Signs: Last Vital Signs Temp 98.6 F 07/30/24 09:13 Pulse 81 07/30/24 09:13 Resp 16 07/30/24 09:13 BP 100/72 07/30/24 09:13 Pulse Ox 99 07/30/24 09:13 Oxygen Delivery Method Room Air 07/30/24 09:13 BMI result Body Mass Index 25.6 Tobacco/Smoking Status: Tobacco use Status Tobacco use date assessed 07/30/24 07/30/24 09:15 Patient Tobacco Use Status Never used Tobacco 07/30/24 09:15 e-Cigarette/Vaping Use Never Used 07/30/24 09:15 PHQ-9: PHQ-9 Score PHQ-9: Total score 0 07/30/24 09:15 Depression Screening Interpretation: Negative Thrive Assessment: Date of Thrive Assessment Date Thrive assessed 09/10/23 07/30/24 09:15 Currently or been in a relationship where the following occur: I choose not to answer Results AMB Hemoglobin A1c AMB Hemoglobin A1c 5.1 % Last Edit by Joy Cedillo CMA on 07/30/24 09:27 Results Reviewed Results Reviewed: Laboratory Last Values Hgb A1c (Clinic) 5.1 % (4.0-6.0) 07/30/24 09:12 Coding Level of Care Code Est Pt Level 3 (56945) Diagnoses Type 2 diabetes mellitus without complication, without long-term current use of insulin E11.9 Diabetes mellitus complication status: without complication Diabetes mellitus group home insulin use: without group home use Diabetes mellitus type: type 2 Family history of breast cancer Z80.3 Assessment & Plan Assessment & Plan (1) Diabetes mellitus: Code(s): E11.9 - Type 2 diabetes mellitus without complications Category: Medical Qualifiers: Diabetes mellitus complication status: without complication Diabetes mellitus group home insulin use: without interior design director use Diabetes mellitus type: type 2 Qualified Code(s): E11.9 - Type 2 diabetes mellitus without complications (2) Family history of breast cancer: Code(s): Z80.3 - Family history of malignant neoplasm of breast Category: Medical Plan . Orders: Orders Complete Blood Count Auto Diff Today E11.9 - Type 2 diabetes mellitus without complications Microalbumin, Random (w Creat) Today E11.9 - Type 2 diabetes mellitus without complications MM screening mammo BI Today Z12.31 - Encounter for screening mammogram for malignant neoplasm of breast AMB Hemoglobin A1c Today E11.9 - Type 2 diabetes mellitus without complications Lipid Panel Today E11.9 - Type 2 diabetes mellitus without complications Comprehensive [place]. Panel Fast Today E11.9 - Type 2 diabetes mellitus without complications TSH reflex Free T4 Today E11.9 - Type 2 diabetes mellitus without complications UA CC w/rflx Micro + Cult Today E11.9 - Type 2 diabetes mellitus without complications Referrals Genetics Referral Z80.3 - Family history of malignant neoplasm of breast
== END 2024-07-30 09:38 | disposition home or self-care (01) ==
LOC: HO.HMCC 09:08
PROVIDERS: PCP Nurse Practitioner Family; Visit Provider Nurse Practitioner Family
DX: E11.9 Type 2 diabetes mellitus without complications (principal); Z80.3 Family history of malignant neoplasm of breast

== ENCOUNTER → 2024-07-30 09:07 | Outpatient (BNVA) | payer OTHER, SELFPAY | PROVIDERS: PCP Nurse Practitioner Family; Visit Provider Nurse Practitioner Family | DX: E11.9 Type 2 diabetes mellitus without complications (principal); Z80.3 Family history of malignant neoplasm of breast | CPT/HCPCS: 83036; 99212 ==

== ENCOUNTER 2024-09-17 12:03 | Outpatient (REF) | payer OTHER, SELFPAY | END 2024-09-17 12:04 | disposition home or self-care (01) | LOC: HO.MAMMO 12:03 | PROVIDERS: PCP Nurse Practitioner Family; Visit Provider Nurse Practitioner Family | DX: Z12.31 Encounter for screening mammogram for malignant neoplasm of breast (principal) | CPT/HCPCS: 77063; 77067 ==

== ENCOUNTER → 2024-09-17 12:15 | Outpatient (BNV) | payer OTHER, SELFPAY | PROVIDERS: PCP Nurse Practitioner Family; Visit Provider Internal Medicine | DX: Z12.31 Encounter for screening mammogram for malignant neoplasm of breast (principal) | CPT/HCPCS: 77063; 77067 ==

== ENCOUNTER 2024-11-06 06:50 | Outpatient (REF) | payer OTHER, SELFPAY ==
[2024-11-06 10:34] LABS: Appearance Urine Cloudy; Glucose Urine UA Negative (Negative); PH 8.0 (5.0-9.0); Specific Gravity - Urine 1.025 (1.005-1.025)
[2024-11-06 10:42] LABS: MANUAL DIFF FLAG NO
[2024-11-06 10:49] LABS: Hematocrit 37.8 % (37.0-47.0); Hemoglobin 12.4 g/dl (12.0-16.0); Imm Gran Abs Auto 0.02 X10*3/uL (0.00-0.03); Imm Gran Pct Auto 0.3 % (0.0-0.4); Lymphocytes Absolute Auto 2.0 X10*3/uL (1.2-4.9); Mean Corpuscular HGB Conc 32.8 g/dl (31.0-35.0); Mean Corpuscular Hemoglobin 30.8 pg (27.0-33.0); Mean Corpuscular Volume 94.0 fL (80.0-98.0); NRBC Abs Auto 0.000 X10*3/uL (0.0-0.012); NRBC Pct Auto 0.0 /100WBC (0.0-0.2); Platelet Count 331 X10*3/uL (160-400); Red Blood Count 4.02 X10*6/uL (4.20-5.50); White Blood Count 7.4 X10*3/uL (4.8-10.8)
[2024-11-06 10:56] LABS: Microalbum/Creatinine Ratio Ur 6.7 ug/mg cr (<30)
[2024-11-06 11:32] LABS: Alanine Aminotransferase 28 U/L (0-31); Albumin Level 4.0 g/dL (3.5-5.0); Alkaline Phosphatase 51 U/L (39-117); Anion Gap 9 (12-20); Aspartate Amino Transferase 23 U/L (5-31); Blood Urea Nitrogen 11 mg/dL (9-16); Calcium 8.5 mg/dL (8.4-10.2); Carbon Dioxide 27 mmol/L (22-29); Chloride 108 mmol/L (96-108); Cholesterol 141 mg/dL (<200); Estimated Glomerular Filt Rate > 60; HDL Cholesterol 38 mg/dL (>40); Potassium 3.4 mmol/L (3.3-5.1); Sodium 141 mmol/L (135-145); Total Protein 6.6 g/dL (6.5-8.0); Triglycerides 174 mg/dL (<150)
== END 2024-11-06 06:51 | disposition home or self-care (01) ==
LOC: HO.HMGCLDS 06:50
PROVIDERS: PCP Nurse Practitioner Family; Visit Provider Nurse Practitioner Family
DX: E11.9 Type 2 diabetes mellitus without complications (principal)
CPT/HCPCS: 36415; 80053; 80061; 81003; 82043; 82570; 84443; 85025

== ENCOUNTER 2024-11-06 19:28 | Emergency (ER) | payer OTHER, SELFPAY ==
--- NOTE | ~2024-11-06 | XR_ITS ---
CLINICAL HISTORY: pain constipation 1 view abdomen Comparison: CT/SR - CT ABDOMEN PELVIS WITHOUT THEN WITH IV CONTRAST - 12/31/22 12:33 EST Findings: Lung bases are clear. No pneumoperitoneum or pneumatosis. Normal bowel-gas pattern. Moderately large amount of fecal loading in the colon. No abnormal calcifications. No acute fractures. IMPRESSION: Normal bowel gas pattern. Moderately large amount of fecal loading in the colon. This document has been electronically signed by: Poncho Galdamez MD on 11/07/2024 00:37:45
--- NOTE | ~2024-11-06 | US_ITS ---
CLINICAL HISTORY: RUQ pain US abdomen limited Comparison: US/SR - US ABDOMEN LIMITED - 06/22/23 08:[address]/SR - CT ABDOMEN PELVIS WITHOUT THEN WITH IV CONTRAST - 12/31/22 12:33 EST Findings: The common duct is 3 mm in diameter. The gallbladder is contracted. No stones or sludge visualized. No pericholecystic fluid. There is no sonographic Sharp sign. Visualized portions of the liver unremarkable. IMPRESSION: 1. Normal contracted gallbladder. This document has been electronically signed by: Poncho Galdamez MD on 11/06/2024 21:23:35
[2024-11-06 19:52] VITALS: BP 129/68; PULSE 75; RESP 16; TEMP 36.7; O2SAT 98; BMI 26.1
--- NOTE | 2024-11-06 19:53 | ED_ITS ---
HPI - Abdominal Pain General Chief Complaint: Abdominal Pain Stated Complaint: upper abdomen pain Time Seen by Provider: 11/06/24 23:00 Source: patient Limitations: no limitations History of Present Illness ED Provider: Nisha Nuno PA-C HPI narrative: 39-year-old female with a history of morbid obesity, diabetes who presents with the abdominal pain since this this afternoon. Pain over upper abdomen, right greater than left, is nonradiating. Her discomfort was triggered after eating, patient has had similar episodes for years. Denies nausea vomiting diarrhea or constipation. Denies abdominal distention or inability to pass flatus. No fevers. Related Data Previous Rx's ?Medication ?Instructions ?Recorded sitz bath #1 ea 05/15/23 FreeStyle Lite Strips (blood sugar #200 ea 05/20/23 diagnostic) blood-glucose meter (FreeStyle #1 ea 05/20/23 Lite Meter kit) lancets 28 gauge (FreeStyle #200 ea 05/20/23 Lancets) docusate sodium 100 mg capsule 100 mg PO BID #30 caps 07/06/23 (Colace) dapagliflozin propanediol 5 mg 5 mg PO DAILY #90 tabs 09/13/23 tablet (Farxiga) ferrous sulfate 325 mg (65 mg 325 mg PO DAILY #90 tabs 04/25/24 iron) tablet,delayed release atorvastatin 10 mg tablet 10 mg PO BEDTIME #90 tabs lisinopril 2.5 mg tablet 2.5 mg PO DAILY #90 tabs 07/01 tirzepatide 2.5 mg/0.5 mL 2.5 mg (0.5 mL) subcut QWEEK #2 mL 11/06/24 subcutaneous pen injector (Mounjaro) Allergies Allergy/AdvReac Type Severity Reaction Status Date / Time No Known Allergies Allergy Verified 11/06/24 19:56 Review of Systems Review of Systems Yes all other systems are reviewed and are negative Constitutional: Denies fatigue and Denies fever(s) Cardiovascular: Denies chest pain and Denies dyspnea Respiratory: Denies cough and Denies dyspnea Gastrointestinal: Reports abdominal pain, Denies bloating, Denies constipation, Denies diarrhea, Denies nausea and Denies vomiting Endocrine: Denies fatigue PMFSH Past Medical History Attestation statement: The following information was validated with the patient. Medical History Fatty liver Diabetes mellitus Metformin adverse reaction Seasonal allergies Bleeding hemorrhoids Hx of gastritis Obesity Anemia Surgical History History of hemorrhoidectomy (~06/28/23) History of colonoscopy (~12/2022) Family History Family History Mother History of uterine fibroid Mother Breast cancer Social History Social History Household Members: Children Household Members Other:: 7 Housing: Homeless Do you presently have visiting nurse or other home services: No Alcohol intake: unknown Patient Tobacco Use Status: Never used Tobacco Smoked in Last 30 Days: No e-Cigarette/Vaping Use: Never Used Second Hand Smoke Exposure: No Use of substances other than those prescribed or required for medical reasons: No Advance Directives: No Advance Directives Information Provided: No Do you have a plan to hurt others: No Plan service: No Current occupational status: employed Current occupation: [employer] Cognitive needs: No Hearing needs: No Vision needs: No Physical Exam ED Vital Signs: Vital Signs - 24 hr 11/06/24 19:52 11/06/24 22:07 Temperature 98.1 F 97.9 F Pulse Rate 75 72 Respiratory Rate 16 20 Blood Pressure 129/68 112/63 Pulse Oximetry 98 98 Oxygen Delivery Method Room Air Room Air BMI result Body Mass Index 26.1 Const Other: Alert well-appearing Orientation/consciousness: patient oriented x3 Resp Effort & Inspection: normal respiratory effort Cardio Other: Normal peripheral perfusion GI Other: Abdomen is soft, obese, nondistended, generalized tenderness to palpation without guarding Skin Other: Warm dry no rash Neuro General: patient oriented x3, gait normal, no focal motor deficits and CN's II- XI intact bilaterally Psych Other: Cooperative Course Course Course Narrative: This is an RME: Additional HPI, ROS, PE not included below will be deferred to primary provider. RME assessment and note performed by: Joanne Sue PA-C This is a [id number]-female, with a hx of diabetes, HLD, who presents to the ER with complaints of abdominal pain. Patient reports that she has had on and off abdominal pain in this region for years however states that after she ate a meal today her pain has been constant. Abdomen is soft, with tenderness palpation in the epigastrium and right upper quadrant. Plan: Labs, ultrasound, UA, EKG, further ER evaluation needed. Medical Decision Making Medical Decision Making [facility] Narrative: 39-year-old female with a history of morbid obesity, diabetes who presents with the abdominal pain since this this afternoon. Pain over upper abdomen, right greater than left, is nonradiating. Her discomfort was triggered after eating, patient has had similar episodes for years. Denies nausea vomiting diarrhea or constipation. Denies abdominal distention or inability to pass flatus. No fevers. Problem: Obesity, diabetes History: Per patient I have considered the following differential diagnoses: Biliary colic, cholecystitis, gastritis, pancreatitis, constipation/GERD Plan: Given distribution of pain with postprandial symptoms, I am considering biliary versus gastric etiology as cause for her pain. Screening labs already obtained and an ultrasound of the right upper quadrant, LFTs normal, there was no acute findings on the ultrasound. Lipase not elevated, she also has no focal left upper quadrant discomfort with the palpation. I do not believe she needs a CT scan of the abdomen. Despite her denial of being constipated, she likely is, she is on GLP 1 injections, we will obtain a KUB. Labs: No leukocytosis, not anemic, no electrolyte abnormality, not , LFTs within normal limits Ultrasound right upper quadrant:indings: The common duct is 3 mm in diameter. The gallbladder is contracted. No stones or sludge visualized. No pericholecystic fluid. There is no sonographic Sharp sign. Visualized portions of the liver unremarkable. IMPRESSION: 1. Normal contracted gallbladder. KUB: Findings: Lung bases are clear. No pneumoperitoneum or pneumatosis. Normal bowel-gas pattern. Moderately large amount of fecal loading in the colon. No abnormal calcifications. No acute fractures. IMPRESSION: Normal bowel gas pattern. Moderately large amount of fecal loading in the colon. Differential Diagnosis Differential Diagnoses: The differential diagnosis associated with the presentation includes See medical decision-making Admission/Observation Consideration of admission/observation: Escalation of care including admission/observation considered Not applicable Lab Data [facility] Lab Attestation statement: I reviewed the patient's lab results. 11/06/24 20:08 11/06/24 20:08 Labs: Lab Results 11/06/24 Range/Units 20:08 WBC 11.6 H (4.8-10.8) X10*3/uL RBC 4.16 L (4.20-5.50) X10*6/uL Hgb 12.9 (12.0-16.0) g/dl Hct 38.1 (37.0-47.0) % MCV 91.6 (80.0-98.0) fL MCH 31.0 (27.0-33.0) pg MCHC 33.9 (31.0-35.0) g/dl RDW 12.4 (11.0-16.0) % Plt Count 340 (160-400) X10*3/uL MPV 9.4 (9.4-12.3) fL Immature Gran % (Auto) 0.3 (0.0-0.4) % Neut % (Auto) 71.9 (45-73) % Lymph % (Auto) 20.2 (20-40) % [place]well % (Auto) 5.1 (2-11) % Eos % (Auto) 2.0 (0-4) % Baso % (Auto) 0.5 (0-2) % Lymph # (Auto) 2.3 (1.2-4.9) X10*3/uL [place]well # (Auto) 0.6 (0.1-1.2) X10*3/uL Eos # (Auto) 0.2 (0.0-0.4) X10*3/uL Baso # (Auto) 0.1 (0.0-0.2) X10*3/uL Abs Immat Gran (auto) 0.04 H (0.00-0.03) X10*3/uL Absolute Neuts (auto) 8.3 (2.0-8.3) x10*3/uL Absolute Nucleated RBC 0.000 (0.0-0.012) X10*3/uL Nucleated RBC % (auto) 0.0 (0.0-0.2) /100WBC Sodium 139 (135-145) mmol/L Potassium 3.9 (3.3-5.1) mmol/L Chloride 108 (96-108) mmol/L Carbon Dioxide 23 (22-29) mmol/L Anion Gap 12 (12-20) BUN 12 (9-16) mg/dL Creatinine 0.54 (0.5-1.4) mg/dL Estim Creat Clear Calc 131.9 Estimated GFR > 60 Random Glucose 124 H (60-115) mg/dL Calcium 8.9 (8.4-10.2) mg/dL Magnesium 2.0 (1.6-2.6) mg/dL Total Bilirubin 0.5 (0.0-1.0) mg/dL Direct Bilirubin 0.2 (0.0-0.5) mg/dL AST 25 (5-31) U/L ALT 28 (0-31) U/L Alkaline Phosphatase 71 (39-117) U/L Troponin I High Sens < 2.7 (<3.5-17.0) ng/L Total Protein 7.2 (6.5-8.0) g/dL Albumin 4.3 (3.5-5.0) g/dL Lipase 32 (8-78) U/L Beta HCG, Quant < 2 mIU/mL Radiology Impression Discussion of test interpretation with radiology: I have reviewed the radiologist's reading. Discharge Plan Discharge Clinical Impression: Constipation Patient Disposition: Home, Self-Care Instructions: Constipation (ED) Additional Instructions: You were found to be considerably constipated. See home care instructions. You should use [id number]-skylvme Colace, this is a stool softener, twice a day. In addition, you should be using [id number]-[id number] MiraLax, 3 to 4 times a day, until you begin having multiple large volume bowel movements. Once you evacuate your current stool burden, you should stay on some form of a bowel regimen indefinitely. Perhaps you will require the Colace daily, with the MiraLax daily, to help maintain regularity. You had no lab abnormalities. Follow up with primary care as needed Prescriptions: No Action (DME) blood-glucose meter [FreeStyle Lite Meter] Kit See Rx Instructions .Route Qty: 1 0RF Rx Instructions: As directed (DME) FreeStyle Lite Strips Strip See Rx Instructions .Route Qty: 200 1RF Rx Instructions: Test blood sugar twice a day (DME) lancets [FreeStyle Lancets] 28 gauge misc See Rx Instructions .Route Qty: 200 1RF Rx Instructions: Test blood sugar twice a day docusate sodium [Colace] 100 mg capsule 100 mg PO BID Qty: 30 0RF ferrous sulfate 325 mg (65 mg iron) tablet,delayed release (DR/EC) 325 mg PO DAILY Qty: 90 1RF atorvastatin 10 mg tablet 10 mg PO BEDTIME Qty: 90 1RF lisinopril 2.5 mg tablet 2.5 mg PO DAILY Qty: 90 1RF Mounjaro 2.5 mg/0.5 mL pen injector 2.5 mg subcut QWEEK Qty: 2 0RF Rx Instructions: for 4 weeks (DME) AIRTAME bath Kit See Rx Instructions .Route Qty: 1 0RF Rx Instructions: As directed dapagliflozin propanediol [Farxiga] 5 mg tablet 5 mg PO DAILY Qty: 90 0RF Interventions: ED Discharge Assessment Last Done: 11/07/24 01:07 Discharge Date/Time: 11/07/24 01:07 Print Language: Cook Islander
--- NOTE | 2024-11-06 19:54 | ECG_ITS ---
Test Reason : EPIGASTRIC PAIN Blood Pressure : */* mmHG Vent. Rate : 72 BPM Atrial Rate : 72 BPM P-R Int : 152 ms QRS Dur : 88 ms QT Int : 396 ms P-R-T Axes : 20 19 30 degrees QTcB Int : 433 ms Normal sinus rhythm Normal ECG When compared with ECG of 13-May-2023 23:53, No significant change was found Referred By: Joanne Sue Electronically Signed By: FAYE ORTIZ
[2024-11-06 20:12] LABS: MANUAL DIFF FLAG NO
[2024-11-06 20:18] LABS: Hematocrit 38.1 % (37.0-47.0); Hemoglobin 12.9 g/dl (12.0-16.0); Imm Gran Abs Auto 0.04 X10*3/uL (0.00-0.03); Imm Gran Pct Auto 0.3 % (0.0-0.4); Lymphocytes Absolute Auto 2.3 X10*3/uL (1.2-4.9); Mean Corpuscular HGB Conc 33.9 g/dl (31.0-35.0); Mean Corpuscular Hemoglobin 31.0 pg (27.0-33.0); Mean Corpuscular Volume 91.6 fL (80.0-98.0); NRBC Abs Auto 0.000 X10*3/uL (0.0-0.012); NRBC Pct Auto 0.0 /100WBC (0.0-0.2); Platelet Count 340 X10*3/uL (160-400); Red Blood Count 4.16 X10*6/uL (4.20-5.50); White Blood Count 11.6 X10*3/uL (4.8-10.8)
[2024-11-06 20:30] LABS: Alanine Aminotransferase 28 U/L (0-31); Albumin Level 4.3 g/dL (3.5-5.0); Alkaline Phosphatase 71 U/L (39-117); Anion Gap 12 (12-20); Aspartate Amino Transferase 25 U/L (5-31); Blood Urea Nitrogen 12 mg/dL (9-16); Calcium 8.9 mg/dL (8.4-10.2); Carbon Dioxide 23 mmol/L (22-29); Chloride 108 mmol/L (96-108); Creatinine Clr Calc Pharmacy 131.9; Estimated Glomerular Filt Rate > 60; Lipase 32 U/L (8-78); Magnesium 2.0 mg/dL (1.6-2.6); Potassium 3.9 mmol/L (3.3-5.1); Sodium 139 mmol/L (135-145); Total Protein 7.2 g/dL (6.5-8.0)
[2024-11-06 20:34] LABS: Troponin-I High Sensitivity < 2.7 ng/L (<3.5-17.0)
[2024-11-06 22:07] VITALS: BP 112/63; PULSE 72; RESP 20; TEMP 36.6; O2SAT 98
[2024-11-07 01:07] VITALS: BP 106/56; PULSE 73; RESP 20; TEMP 36.6; O2SAT 100
== END 2024-11-07 01:07 | disposition home or self-care (01) ==
PROVIDERS: Physician Assistant Medical; Emergency Provider Emergency Medicine; PCP Nurse Practitioner Family
DX: K59.00 Constipation, unspecified (principal); R10.11 Right upper quadrant pain; R10.13 Epigastric pain; E11.9 Type 2 diabetes mellitus without complications
CPT/HCPCS: 36415; 74018; 76705; 80048; 80076; 83690; 83735; 84484; 84702; 85025; 93005; 99284

== ENCOUNTER → 2024-11-06 19:53 | Outpatient (BNV) | payer OTHER, SELFPAY | PROVIDERS: PCP Nurse Practitioner Family; Visit Provider Radiology Diagnostic Radiology | DX: K59.00 Constipation, unspecified (principal) | CPT/HCPCS: 74018; 76705 ==

== ENCOUNTER → 2024-11-06 19:54 | Outpatient (BNV) | payer OTHER, SELFPAY | PROVIDERS: Emergency Provider Emergency Medicine; PCP Nurse Practitioner Family; Visit Provider Internal Medicine | DX: R10.13 Epigastric pain (principal) | CPT/HCPCS: 93010 ==

== ENCOUNTER 2024-12-28 09:08 | Outpatient (REF) | payer OTHER, SELFPAY ==
[2024-12-28 22:54] LABS: Bacterial Vaginosis PCR NEGATIVE (Negative); Candida Group PCR NOT DETECTED (Not Detect); Candida glab krusei PCR DETECTED (Not Detect); Trichomonas vaginalis PCR NOT DETECTED (Not Detect)
[2024-12-28 23:25] LABS: CT PCR NOT DETECTED (Not Detect.); NG PCR NOT DETECTED (Not Detect.)
== END 2024-12-28 09:09 | disposition home or self-care (01) ==
LOC: HO.LNP 09:08
PROVIDERS: PCP Nurse Practitioner Family; Visit Provider Advanced Practice Midwife
DX: Z87.42 Personal history of other diseases of the female genital tract (principal); E11.9 Type 2 diabetes mellitus without complications; Z80.3 Family history of malignant neoplasm of breast; L65.9 Nonscarring hair loss, unspecified; Z86.2 Personal history of diseases of the blood and blood-forming organs and certain disorders involving the immune mechanism; Z12.4 Encounter for screening for malignant neoplasm of cervix; Z20.2 Contact with and (suspected) exposure to infections with a predominantly sexual mode of transmission
CPT/HCPCS: 81515; 87491; 87591; 99396

== ENCOUNTER 2024-12-28 09:08 | Outpatient (AMB) | payer OTHER, SELFPAY ==
--- NOTE | 2024-12-28 09:09 | A.OFFVIS_ITS ---
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: Financial Administrator Present (Kristina) Accompanied by: Self / Same As Patient Allergies No Known Allergies Allergy (Verified 12/28/24 09:18) Medication List - Last Reconciled 12/28/24 by Kandi Gilbert CNM atorvastatin 10 mg PO BEDTIME blood-glucose meter (FreeStyle Lite Meter kit) As directed dapagliflozin propanediol (Farxiga) 5 mg PO DAILY docusate sodium (Colace) 100 mg PO BID FreeStyle Lite Strips (blood sugar diagnostic) Test blood sugar twice a day NS lancets (FreeStyle Lancets) Test blood sugar twice a day lisinopril 2.5 mg PO DAILY sitz bath As directed tirzepatide (Mounjaro) 2.5 mg (0.5 mL) subcut QWEEK Is last menstrual period known: Yes Last menstrual period: 11/13/24 Post menopausal: No Patient : No HPI 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 She has lost about 60 lb using Ozempic and now she is on Mounjaro. She feels very good her diabetes is in much better control. She said she went with her mother when her mother had genetic testing in her mother does not have the breast cancer gene and she herself has had her mammogram and it was negative and she is scheduled for yearly screening now.. She has been using condoms for control she has used every method in the past she has 4 children she has used Depo-Provera she has used an IUD but she does not know which 1 it was and she has used pills she has noticed lately her periods are very irregular but they used to be regular before she had children. She does not remember when they became irregular they are coming every 3 months and they are lasting 2 weeks. She does have hair thinning but she does not remember how many years that is been going on. She was wondering about going back on pills she is now 39 she is on lisinopril for blood pressure and other medications as well. In the past she had a negative Pap smear in September of 2023 and an ultrasound was done at that time which showed of 0.5 cm tiny fibroid. [facility] Medical History Fatty liver Diabetes mellitus Metformin adverse reaction Seasonal allergies Bleeding hemorrhoids Hx of gastritis Obesity Anemia Surgical History History of hemorrhoidectomy (~06/28/23) History of colonoscopy (~12/2022) Family History Mother History of uterine fibroid Mother Breast cancer Social History Household Members: Children Household Members Other:: 7 Housing: Homeless Do you presently have visiting nurse or other home services: No Alcohol intake: unknown Patient Tobacco Use Status: Never used Tobacco e-Cigarette/Vaping Use: Never Used Second Hand Smoke Exposure: No Patient : No service: No Current occupational status: employed Current occupation: [employer] Cognitive needs: No Hearing needs: No Vision needs: No Female Reproductive History Menstrual Age of Menarche: 11 Duration of menses: other (2 weeks) Date of last menstrual period: 11/13/24 control method: none Total pregnancies: 6 Full term: 4 Date of last pap smear: 09/23/23 (negative pap smear, negative hpv ) History of abnormal pap smear: No Date of Mammogram: 09/17/24 (bi rad 1) Physical Exam Vital Signs: Last Vital Signs BP 112/72 12/28/24 09:19 BMI result Body Mass Index 26.1 Const General: healthy appearing, comfortable, no acute distress, well developed and alert Nutritional Appearance: average body habitus Orientation/consciousness: patient oriented x3 Limitations: no limitations HEENT Head: Yes normocephalic Neck Neck: Yes normal visual inspection Chest Chest palpation & inspection: normal inspection of the chest Breast/axilla inspection: normal inspection of the breasts and normal inspection of the axillae Breast/axilla palpation: normal palpation of the breasts and normal palpation of the axillae Resp Effort & Inspection: normal respiratory effort GI Inspection: Yes normal to inspection, No Abdominal wall edema and No distended Palpation (GI): Soft to palpation and nontender Other: Normal external exam vagina pink and moist cervix multiparous pink so very smooth healthy appearing very normal-appearing white mucus testing done for gonorrhea and chlamydia trichomoniasis BV and yeast in anticipation of further testing in future (future EMB). Cervix mobile nontender uterus midposition mobile nontender nonenlarged adnexa nontender nonenlarged good muscle tone. General: Yes bladder normal to palpation External Female Exam: normal external appearance and normal appearance of the urethra Speculum Exam - Vagina: normal appearance of the vagina, normal palpation and normal vaginal discharge Speculum Exam - Cervix: normal appearance of the cervix, normal palpation and nontender Bimanual exam- vagina & uterus: normal bimanual exam, normal palpation, uterine size normal, bladder normal to palpation, consistency normal, normal palpation, uterine mobility normal, uterine shape normal, No Cervical tenderness present, non-tender and no cervical motion tenderness Bimanual Exam- Adnexa, other: normal adnexae, no masses, normal and No adnexal tenderness Neuro General: patient oriented x3 Results Reviewed Results Reviewed: Patient: Vern Nieves MR#: [id number] : 1985 Acct:[id number] Age/Sex: 38 / F ADM Date: 09/30/23 Loc: .[place] Attending Dr: Kandi Gilbert CNM Ordering Physician: Kandi Gilbert CNM Date of Service: 09/30/23 Procedure(s): US pelvic and transvaginal Accession Number(s): [id number] cc: Humphrey Redd; Kandi Gilbert CNM~ EXAMINATION: US PELVIS COMPLETE CLINICAL INFORMATION: Encounter for screening for malignant neoplasm of cervix; the last menstrual period was on 08/2023. COMPARISON: Pelvic ultrasound dated 04/18/2017. TECHNIQUE: Transabdominal and transvaginal imaging were performed. FINDINGS: The uterus is of normal size and echogenicity measuring 4.6 x 3.6 x 4.7 cm. The uterus is anteverted and anteflexed. A regular, homogeneous endometrium is identified measuring 0.7 cm. A 2 mm cyst is seen within the endometrial stripe. The cervical length is 3.5 cm. Nabothian cysts are seen within the cervix. FIBROIDS: There is 1 fibroid seen. 1. Location: Upper leftward body, myometrial. Size: 0.5 x 0.3 x 0.5 cm. Fibroid characteristics: Hypoechoic. Both ovaries are of normal size and echogenicity. The right ovary measures 3.4 x 1.8 x 2.2 cm for a volume of 7.0 mL. The right ovary contains a 1.7 cm benign, simple physiologic follicle, for which no imaging follow-up is recommended. The left measures 1.9 x 1.2 x 1.0 cm for a volume of 1.2 mL. There is no pelvic free fluid. US/US pelvic and transvaginal IMPRESSION: 1. A small uterine fibroid is seen, as detailed. 2. Nabothian cysts are seen within the cervix. 3. A 2 mm cystic focus is seen within the endometrial stripe, which is within normal limits for thickness. 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 SERVICE AGENT-BC ORDERED: CBC Auto Diff Test Result Flag Reference WBC 11.6 H 4.8-10.8 X 10*3/uL RBC 4.16 L 4.20-5.50 X10*6/uL HGB 12.9 12.0-16.0 g/dl HCT 38.1 37.0-47.0 % MCV 91.6 80.0-98.0 fL MCH 31.0 27.0-33.0 pg MCHC 33.9 31.0-35.0 g/dl RDW 12.4 11.0-16.0 % PLT 340 160-400 X10*3/uL MPV 9.4 9.4-12.3 fL Neut Pct Auto 71.9 45-73 % ImGran Pct Auto 0.3 0.0-0.4 % Lymp Pct Auto 20.2 20-40 % Cherokee Pct Auto 5.1 2-11 % Eos Pct Auto 2.0 0-4 % Baso Pct Auto 0.5 0-2 % NRBC Pct Auto 0.0 0.0-0.2 /100WBC ANC Neut Abs # 8.3 2.0-8.3 x10*3/uL ImGran Abs Auto 0.04 H 0.00-0.03 X10*3/uL Lymph Abs Auto 2.3 1.2-4.9 X10*3/uL Cherokee Abs Auto 0.6 0.1-1.2 X10*3/uL Eos Abs Auto 0.2 0.0-0.4 X10*3/uL Baso Abs Auto 0.1 0.0-0.2 X10*3/uL NRBC Abs Auto 0.000 0.0-0.012 X10*3/uL END OF REPORT Assessment & Plan Assessment & Plan (1) Diabetes mellitus: Code(s): E11.9 - Type 2 diabetes mellitus without complications Category: Medical Qualifiers: Diabetes mellitus complication status: without complication Diabetes mellitus planisher insulin use: without alf use Diabetes mellitus type: type 2 Qualified Code(s): E11.9 - Type 2 diabetes mellitus without complications (2) Family history of breast cancer: Code(s): Z80.3 - Family history of malignant neoplasm of breast Category: Medical (3) Hair thinning: Code(s): L65.9 - Nonscarring hair loss, unspecified Category: Medical (4) History of irregular menstrual cycles: Comment: 12/28/2024 states they are currently every 3 months but last 2 weeks and are heavy.... Code(s): Z87.42 - Personal history of other diseases of the female genital tract Category: Medical (5) Hx of iron deficiency anemia: Code(s): Z86.2 - Personal history of diseases of the blood and blood-forming organs and certain disorders involving the immune mechanism Category: Medical (6) Screening for cervical cancer: Comment: 09/23/23-pap neg, w neg HPV, ([facility], scanned in chart) Code(s): Z12.4 - Encounter for screening for malignant neoplasm of cervix Category: Medical Plan -----Discussed in this visit the following: healthy balanced diet, regular and consistent exercise, getting recommended health screens, doing the best she can for her particular health concerns, kegel exercises, pap smear screening and followup recommendations, mammography screening and SBE, normal changes in cycles in her life stage--- . She is not due for Pap smear having never had an abnormal 1 and her last 1 was negative. She already had her 1st screening mammogram at age 39 and she has investigated her mother's history and is doing appropriate follow-up for that. As regards her irregular menses discussed ways of approaching evaluation suggest repeating the pelvic ultrasound and getting some blood work to assess for diff erent hormonal changes including thyroid CBC and FSH and testosterone, and prolactin We will also plan for endometrial biopsy after the ultrasound, and then discuss best options for how to manage her irregular menses. Congratulated on her hard work to lose the weight and get healthier she has definitely improved her health with the weight loss and the GLP ones as regards her diabetes. Orders: Orders US pelvic and transvaginal Today E11.9 - Type 2 diabetes mellitus without complications, L65.9 - Nonscarring hair loss, unspecified, Z80.3 - Family history of malignant neoplasm of breast, Z87.42 - Personal history of other diseases of the female genital tract Complete Blood Count no Diff Today E11.9 - Type 2 diabetes mellitus without complications, L65.9 - Nonscarring hair loss, unspecified, Z80.3 - Family history of malignant neoplasm of breast, Z86.2 - Personal history of diseases of the blood and blood-forming organs and certain disorders involving the immune mechanism, Z87.42 - Personal history of other diseases of the female genital tract Testosterone, Free/Total Today E11.9 - Type 2 diabetes mellitus without complications, L65.9 - Nonscarring hair loss, unspecified, N92.6 - Irregular menstruation, unspecified, Z80.3 - Family history of malignant neoplasm of breast, Z86.2 - Personal history of diseases of the blood and blood-forming organs and certain disorders involving the immune mechanism, Z87.42 - Personal history of other diseases of the female genital tract Prolactin Today E11.9 - Type 2 diabetes mellitus without complications, L65.9 - Nonscarring hair loss, unspecified, Z80.3 - Family history of malignant neoplasm of breast, Z86.2 - Personal history of diseases of the blood and blood-forming organs and certain disorders involving the immune mechanism, Z87.42 - Personal history of other diseases of the female genital tract Thyroid Stimulating Hormone Today E11.9 - Type 2 diabetes mellitus without complications, L65.9 - Nonscarring hair loss, unspecified, Z80.3 - Family history of malignant neoplasm of breast, Z86.2 - Personal history of diseases of the blood and blood-forming organs and certain disorders involving the immune mechanism, Z87.42 - Personal history of other diseases of the female genital tract Follicle Stimulating Hormone Today E11.9 - Type 2 diabetes mellitus without complications, L65.9 - Nonscarring hair loss, unspecified, Z80.3 - Family history of malignant neoplasm of breast, Z86.2 - Personal history of diseases of the blood and blood-forming organs and certain disorders involving the immune mechanism, Z87.42 - Personal history of other diseases of the female genital tract DHEA Sulfate Today E11.9 - Type 2 diabetes mellitus without complications, L 65.9 - Nonscarring hair loss, unspecified, Z80.3 - Family history of malignant neoplasm of breast, Z86.2 - Personal history of diseases of the blood and blood- forming organs and certain disorders involving the immune mechanism, Z87.42 - Personal history of other diseases of the female genital tract Coding Level of Care Code Est Pt Prev Care 40-64y(55013) Diagnoses Type 2 diabetes mellitus without complication, without long-term current use of insulin E11.9 Diabetes mellitus complication status: without complication Diabetes mellitus alf insulin use: without planisher use Diabetes mellitus type: type 2 Family history of breast cancer Z80.3 Hair thinning L65.9 History of irregular menstrual cycles Z87.42 Hx of iron deficiency anemia Z86.2 Screening for cervical cancer Z12.4
[2024-12-28 09:19] VITALS: BP 112/72; BMI 26.1
== END 2024-12-28 12:17 | disposition home or self-care (01) ==
LOC: HO.HWSM 09:08
PROVIDERS: PCP Nurse Practitioner Family; Visit Provider Advanced Practice Midwife
DX: Z01.419 Encounter for gynecological examination (general) (routine) without abnormal findings (principal); E11.9 Type 2 diabetes mellitus without complications; Z80.3 Family history of malignant neoplasm of breast; L65.9 Nonscarring hair loss, unspecified; Z87.42 Personal history of other diseases of the female genital tract; Z86.2 Personal history of diseases of the blood and blood-forming organs and certain disorders involving the immune mechanism
CPT/HCPCS: 99396; 99459